=== PATIENT | male | born 1955 | race Caucasian/White ===

== ENCOUNTER 2019-08-04 07:46 | Outpatient (CLI) | payer OTHER ==
[~2019-08-04] VITALS: Ht 177.8 cm; Wt 94.5 kg
--- NOTE | ~2019-08-04 | HEMODYNAMI ---
PATIENT:DU GARCIA MEDICAL RECORD: [id number] : 59 [id number] ADMISSION DATE: 08/04/19 Generatedon:08/05/201910:05 Patient name: DU GARCIA Patient #: [id number] SSN: : Date of study: 08/05/2019 Page: Of Hemodynamic Procedure Report Patient Data Patient Demographics First Name: DU Gender: Male Last Name: JOSE : 1955 Patient #: [id number] Age: 63 year(s) Race: Unknown Additional ID: [id number] Contact details [address]: [address] [place] [address] State: [place] City: [place] Zip code: [address] Past Medical History Allergies Allergen Reaction Date Comments Reported Other allergy 08/05/2019 PCN, EGGS, MORPHINE Admission Admission Data Admission Date: 08/04/2019 Admission Time: 7:46 Admit Source: Other Room #: D.2114 Lab Results Lab Result Date: 08/05/2019 Lab Result Time: 0:00 Biochemistry Name Units Result Min Max BUN mg/dl 15 --(--*-)-- 7 18 Creatinine mg/dl 1.5 --(----)-* 0.6 1.3 eGFR ml/min 51 *-(----)-- 90 120 NONAFRICAN CBC Name Units Result Min Max Hematocrit % 47.5 --(-*--)-- 42 54 Hemoglobin g/dl 16.3 --(--*-)-- 13.5 17.5 Procedure Procedure Types Cath Procedure Diagnostic Procedure [facility] w/Coronaries FFR/IVUS FFR Initial FFR Additional PCI Procedure Coronary Stent Coronary Stent Initial x2 Coronary Stent Additional Procedure Description Procedure Date Procedure Date: 08/05/2019 Procedure Start Time: 9:18 Procedure End Time: 10:03 Procedure Staff Name Function Drew Kidd MD Performing Physician Tristan Allison RT Monitor Miracle Mai RN Nurse Nahomy Kim RT Scrub Celso Rodriguez RN Medical Research Assistant Procedure Data Cath Procedure Fluoroscopy Diagnostic fluoroscopy Total fluoroscopy Time: time: 11.8 min 11.8 min Diagnostic fluoroscopy Total fluoroscopy dose: dose: 1582 mGy 1582 mGy Contrast Material Contrast Material Type Amount (ml) Isovue 370 161 Entry Location Entry Primary Successful Side Size Upsize Upsize Entry Closure Succes sful Closure Location (Fr) 1 (Fr) 2 (Fr) Remarks Device Remarks Femoral Left 5 Fr 6 Fr AMPLATZ Exoseal artery Short Diagnostic catheters Device Type Used For End Catheter Placement MULTIPACK 3DRC 5Fr Right Coronary catheter Angiography MULTIPACK JL 4.0 5Fr Left Coronary catheter Angiography MULTIPACK Pigtail 5 Fr LV Angiography catheter Procedure Complications No complications Procedure Medications Medication Administration Route Dosage Oxygen etCO2 Nasal cannula 2 l/min Lidocaine 2% added to field 20 Heparin Flush Bag added to field 2 bags (1000units/500ml NS) 0.9% NaCl I.V. 100 ml/hr Versed I.V. 2 mg Fentanyl I.V. 100 mcg Versed I.V. 2 mg Fentanyl I.V. 100 mcg Versed I.V. 2 mg Fentanyl I.V. 100 mcg Heparin Bolus I.V. 4000 units Plavix P.O. 75 mg Hemodynamics Rest HGB: 16.3 (g/dl) Heart Rate: 60 (bpm) Snapshots Pre Cath Intra NCS Post Cath Vital Signs Time Heart Resp SPO2 etCO2 NIBP (mmHg) Rhythm Pain Sedation Rate (ipm) (%) (mmHg) Status Level (bpm) 9:04:32 57 16 94 19.6 114/76(89) NSR 0 (11) 10(A) , No pain 9:08:46 54 15 92 14.3 107/69(80) NSR 0 (11) 10(A) , No pain 9:12:58 62 11 92 23.3 92/67(79) NSR 0 (11) 10(A) , No pain 9:17:03 56 10 93 23.3 91/68(80) NSR 0 (11) 10(A) , No pain 9:21:03 51 10 93 0.7 108/81(95) NSR 0 (11) 10(A) , No pain 9:25:07 52 11 93 0 116/81(91) NSR 0 (11) 10(A) , No pain 9:29:25 56 10 92 26.3 95/64(89) NSR 0 (11) 9(A) , No pain 9:34:46 91 9 93 30.9 91/59(66) NSR 0 (11) 9(A) , No pain 9:38:50 60 8 92 36.2 95/71(85) NSR 0 (11) 9(A) , No pain 9:44:14 60 8 92 38.4 75/51(56) NSR 0 (11) 9(A) , No pain 9:48:15 62 9 93 37.7 77/60(72) NSR 0 (11) 9(A) , No pain 9:52:17 65 10 92 39.2 89/64(82) NSR 0 (11) 10(A) , No pain 9:56:23 70 10 93 23.4 104/68(90) NSR 0 (11) 10(A) , No pain 10:01:22 67 12 90 0 122/90(103) NSR 0 (11) 10(A) , No pain Medications Time Medication Route Dose Verified Delivered Reason Notes E ffectiveness by by 9:09:49 Oxygen etCO2 2 Drew used for Nasal l/min Marti TREVIZO procedure cannula 9:10:00 Lidocaine 2% added 20ml Drew Drew for local to vial Marti Kidd MD anesthetic field 9:10:07 Heparin Flush added 2 Drew Drew used for Bag to bags Marti Kidd MD procedure (1000units/500ml field NS) 9:10:15 0.9% NaCl I.V. 100 Drew Buffie Per ml/hr Marti Mai RN physician 9:17:03 Fentanyl I.V. 100 Drew Buffie for sedation mcg Marti Mai RN 9:17:57 Versed I.V. 2 mg Drew Buffie for sedation Marti Mai RN 9:22:04 Versed I.V. 2 mg Drew Buffie for sedation Marti Mia RN 9:22:08 Fentanyl I.V. 100 Drew Buffie for sedation mcg Marti Mai RN 9:29:30 Versed I.V. 2 mg Drew Buffie for sedation Marti Mai RN 9:29:35 Fentanyl I.V. 100 Drew Buffie for sedation mcg Marti Mai RN 9:41:31 Heparin Bolus I.V. 4000 Drew Rausch Per units Marti Mai RN physician 10:00:55 Plavix P.O. 75 mg Drew Rausch for Marti Mai RN antiplatelet therapy Procedure Log Time Note 8:37:02 Admit Source: Other 8:38:04 Procedure Status Elective Heart Cath (OP). 8:38:22 Celso Rodriguez RN sent for patient. Start room use. 8:38:30 Time tracking: Regular hours (M-F 7:00 - 5:00) 8:38:35 Plan of Care:Hemodynamics will remain stable., Cardiac rhythm will remain stable., Comfort level will be maintained., Respiratory function will remain adequate., Patient/ family verbilizes understanding of procedure., Procedure tolerated without complication., Recovers from procedure without complications.. 8:48:47 Risk of blood transfusion: 0.9 8:48:53 Risk of RAJESH: n/a 8:49:50 3a) 45-59 Moderately reduced kidney function. 8:50:24 Maximum allowable contrast dose (3.7 X eGFR X 0.75)141.5 ml. 8:54:20 Patient received from Med II to CCL 1 Alert and oriented. Tansferred to table in Supine position. 8:54:21 Warm blankets applied, and willard hugger turned on for patient comfort. 8:54:22 Correct patient and procedure confirmed by team. 8:54:22 ECG and BP/O2 sat monitors applied to patient. 8:54:27 H&P Date Dictated: 08/05/2019 New H&P dictated by physician.. 8:55:10 Patient allergic to Other allergyPCN, EGGS, MORPHINE 8:55:15 Is the patient allergic to Iodine/contrast media? No. 8:55:53 Is patient on blood thinner?Yes 8:56:14 COUMADIN HELD SINCE 08.03 8:56:28 PT BELIEVES LAST DOSE OF PLAVIX ON 08.03 8:56:30 Patient diabetic? No. 8:56:34 Previous problem with sedation/anesthesia? No ? 8:56:35 Snore? Yes 8:56:36 Sleep apnea? Yes 8:56:37 Deviated septum? No 8:56:39 Opens mouth fully? Yes 8:56:40 Sticks out tongue? Yes 8:56:43 Airway obstruction? Yes COPD 8:56:48 Dentures? No ? 8:56:50 Pre procedure: right dorsailis pedis pulse 1+ Palpable, but thready & weak; easily obliterated 8:56:58 Patient pain scale 0/10 ?. 8:57:02 IV patent on arrival in right antecubital with 0.9% NaCl at O. 8:58:00 Lab Result : BUN 15 mg/dl 8:58:00 Lab Result : eGFR NONAFRICAN 51 ml/min 8:58:00 Lab Result : Creatinine 1.5 mg/dl 8:58:00 Lab Result : Hemoglobin 16.3 g/dl 8:58:00 Lab Result : Hematocrit 47.5 % 8:58:30 Lab results completed and on chart. 8:58:46 Stress Test: no; N/A NSTEMI 8:58:49 Risk of Mortality: 0.8 8:58:54 Right groin area was prepped with chlora-prep and draped in sterile fashion 8:58:55 Alarms reviewed by R. N. 8:58:55 Sharps counted by scrub and verified by R.N. 8:59:00 Use device set Femoral Dx 8:59:01 ACIST Syringe (62158) opened to sterile field. 8:59:02 Bag Decanter (2002S) opened to sterile field. 8:59:03 ACIST Hand Control (40272) opened to sterile field. 8:59:03 ACIST Manifold (60534) opened to sterile field. 8:59:04 Tegaderm 4 x 4 (1626W) opened to sterile field. 8:59:06 Medline Cath Pack ([id number]) opened to sterile field. 8:59:07 DIAGNOSTIC Multipack 5Fr catheter set (BC6303) opened to sterile field. 8:59:08 SHEATH 5FR [place] (JZF684) opened to sterile field. 8:59:08 EMERALD Guide Wire (502-463) opened to sterile field. 9:03:26 Baseline sample Acquired. 9:03:26 Vital chart was started 9:03:29 Rhythm: sinus rhythm 9:03:31 Full Disclosure recording started 9:03:33 Pre-procedure instructions explained to patient. 9:03:42 Family in patients room. 9:03:45 Patient NPO since Midnight. 9:04:03 ACC The patient was administered the following blood thiners within the last 24 hours: ACCPlavix 9:04:23 Physician paged 9:09:49 Oxygen 2 l/min etCO2 Nasal cannula was administered by ; used for procedure; Verbal order read back and verified. 9:10:00 Lidocaine 2% 20ml vial added to field was administered by Drew Kidd MD; for local anesthetic; Verbal order read back and verified. 9:10:07 Heparin Flush Bag (1000units/500ml NS) 2 bags added to field was administered by Drew Kidd MD; used for procedure; Verbal order read back and verified. 9:10:15 0.9% NaCl 100 ml/hr I.V. was administered by Miracle Mai RN; Per physician; Verbal order read back and verified. 9:16:52 Physician arrived 9:16:52 --------ALL STOP TIME OUT------ 9:16:53 Final Timeout: patient, procedure, and site verified with staff and physician. All members of the team are in agreement. 9:16:56 Right groin site verified by team. 9:17:02 Fire Safety Assessment: A--An alcohol-based skin anteseptic being used preoperatively., C--Open oxygen or nitrous oxide is being used., D--An ESU, laser, or fiber-optic light is being used. 9:17:03 Fentanyl 100 mcg I.V. was administered by Miracle Mai RN; for sedation; Verbal order read back and verified. 9:17:06 Physical assessment completed. ASA score P 3 - A patient with severe systemic disease as per Drew Kidd MD. 9:17:11 Sedation plan: IV Moderate Sedation Medication:Versed, Fentanyl 9:17:57 Versed 2 mg I.V. was administered by Miracle Mai RN; for sedation; Verbal order read back and verified. 9:18:29 Procedure started. 9:18:47 Local anesthetic to right femoral artery with Lidocaine 2% by Drew Kidd MD.INITIAL ACCESS ONLY 9:19:54 Zero performed for pressure channel P1 9:22:04 Versed 2 mg I.V. was administered by Buffie Mai RN; for sedation; Verbal order read back and verified. 9:22:08 Fentanyl 100 mcg I.V. was administered by Miracle Mai RN; for sedation; Verbal order read back and verified. 9:24:29 UNABLE TO GAIN ACC. INTO RFA 9:24:35 Local anesthetic to left femerol artery with Lidocaine 2% by Drew Kidd MD.ADDITIONAL ACCESS 9:24:44 A 5 Fr sheath was inserted into the Left Femoral arteryAMPLATZ 9:25:34 AMPLATZ Super Stiff 75cm wire ([id number]) opened to sterile field. 9:27:52 GLIDE WIRE Super Stiff Angled 260cm ([id number]) opened to sterile field. 9:28:52 A MULTIPACK 3DRC 5Fr catheter was advanced over the wire and used for Right Coronary Angiography. 9:28:56 RCA angiography performed. 9:29:30 Versed 2 mg I.V. was administered by Miracle Mai RN; for sedation; Verbal order read back and verified. 9:29:35 Fentanyl 100 mcg I.V. was administered by Miracle Mai RN; for sedation; Verbal order read back and verified. 9:29:43 Catheter exchanged over wire. 9:29:48 A MULTIPACK JL 4.0 5Fr catheter was advanced over the wire and used for Left Coronary Angiography. 9:31:02 LCA angiography performed. 9:32:06 Catheter exchanged over wire. 9:32:45 A MULTIPACK Pigtail 5 Fr catheter was advanced over the wire and used for LV Angiography. 9:33:32 INFLATOR Merit BasixCompak (HG4315) opened to sterile field. 9:34:27 SHEATH 6FR [place] (IWI247) opened to sterile field. 9:34:29 GUIDE 6FR XBLAD 3.5 catheter ([id number]) opened to sterile field. 9:34:36 LV gram done using GODDARD 9:34:41 EF : 35 % 9:34:43 Catheter exchanged over wire. 9:34:50 Sheath upsized to a 6 Fr Short. 9:35:06 6 Fr XBLAD 3.5 guide catheter was inserted over the wire 9:37:20 Guide Catheter removed. unable to cannulate vessel. 9:37:32 GUIDE 6FR XBLAD 4.0 catheter ([id number]) opened to sterile field. 9:37:51 6 Fr XBLAD 4 guide catheter was inserted over the wire 9:37:56 FFR/IFR wire advanced. 9:37:57 Wire advanced across lesion. 9:40:43 pLAD lesion measured at 0.82 with IFR 9:41:31 Heparin Bolus 4000 units I.V. was administered by Miracle Mai RN; Per physician; Verbal order read back and verified. 9:44:13 Place stent Inflation Number: 1 A CHACE RX 2.25 x 22 stent ([id number]) was prepped and advanced across the Mid LAD 90. The stent was deployed at 13 JEREMY for 0:12 (min:sec) . 9:44:42 Stent catheter was removed intact over wire. 9:44:49 Wire removed. 9:45:57 Wire redirected to DIAG. 9:46:39 Place stent Inflation Number: 1 A CHACE RX 2.5 x 08 stent ([id number]) was prepped and advanced across the 1st Diag 90. The stent was deployed at 19 JEREMY for 0:10 (min:sec) . 9:46:55 Stent catheter was removed intact over wire. 9:46:57 Wire removed. 9:46:59 Guide catheter removed. 9:47:55 [place] Verrata Plus pressure wire ([id number]) opened to sterile field. 9:47:56 GUIDE 6FR AR 2.0 catheter ([id number]) opened to sterile field. 9:48:08 6 Fr AR 2 guide catheter was inserted over the wire 9:48:15 FFR/IFR wire advanced. 9:49:46 mRCA lesion measured at 0.88 with IFR 9:52:19 CHOICE PT Extra Support 182cm wire ([id number]) opened to sterile field. 9:53:00 CPTES wire advanced. 9:53:33 ACC Pre-intervention CESAR Flow is 3. 9:53:41 ACC Post-intervention CESAR Flow is 3. 9:54:22 Place stent Inflation Number: 1 A CHACE RX 3.5 x 15 stent ([id number]) was prepped and advanced across the Mid RCA 90. The stent was deployed at 19 JEREMY for 0:20 (min:sec) . 9:54:27 Stent catheter was removed intact over wire. 9:54:30 Wire removed. 9:54:31 Guide catheter removed. 9:54:51 Contrast amount:Isovue 370 161ml. 9:54:58 Sheath removed intact; hemostasis achieved with Exoseal to the Left Femoral artery. 9:55:51 Procedure ended.(Physican Out) 9:56:45 Fluoroscopy time 11.80 minutes. 9:56:53 Fluoroscopy dose: 1582 mGy 9:56:53 Flurop Dose total: 1582 9:57:02 Dose Area Product 42138 mGy/cm. 9:57:08 Maximum allowable dose exceeded? Yes. 9:57:16 Sharps counted by scrub and verified by R.N. 9:57:21 Insertion/operative site no bleeding no hematoma. 9:57:25 Post-op/insertion site Left Femoral artery dressed using a 4 x 4 and Tegaderm. 9:57:30 Post left femerol artery:stable 9:57:39 Post-op/insertion site Right Femoral artery dressed using a Bandaid. 9:57:48 Post right femoral artery:stable 9:58:00 EXOSEAL 6Fr (EX600) opened to sterile field. 9:58:33 Post Procedure Pulses reassessed and unchanged 9:58:38 Post procedure: right dorsailis pedis pulse 2+ Normal; easily identifiable; not easily obliterated. 9:58:43 Post-procedure physical assessment completed. ASA score P 2 - A patient with mild systemic disease as per Drew Kidd MD. 9:58:53 Post procedure rhythm: sinus rhythm 9:58:55 Post procedure instruction explained to patient.Patient verbalizes understanding. 10:00:12 Procedure type changed to Cath procedure, Diagnostic procedure, [facility], [facility] w/Coronaries, FFR/IVUS, FFR Initial, FFR Additional, PCI procedure, Coronary Stent, Coronary Stent Initial x2, Coronary Stent Additional 10:00:51 Procedure and supply charges have been captured, reviewed, submitted and are correct. 10:00:55 Plavix 75 mg P.O. was administered by Miracle Mai RN; for antiplatelet therapy; Verbal order read back and verified. 10:01:08 Procedure Complication : No complications 10:01:27 ACT drawn and resulted at 334 seconds. (normal therapeutic range 180-240 seconds). 10:01:45 >400 10:01:52 Vital chart was stopped 10:02:05 [facility] Findings: MVD- PCI performed (see procedure note) 10:02:14 Operative report dictated upon procedure completion. 10:02:25 See physician's report for complete and final results. 10:02:33 Report given to PCU. 10:03:01 Patient transfered to PCU with Bed. 10:03:03 Procedure ended. 10:03:03 Full Disclosure recording stopped 10:03:15 ACC-PCI Only Patient was given prescriptions, or instructed by Drew Kidd MD to start/continue the following medications upon discharge: Plavix 10:03:19 End room use (Document Last) 10:03:53 End room use (Document Last) Intervention Summary Intervention Notes Time ActionType Lesion and Equipment Used Action# Pressure Duration Attributes 9:44:13 Place stent Mid LAD CHACE RX 2.25 x 1 13 00:12 22 stent ([id number]) 9:46:39 Place stent 1st Diag CHACE RX 2.5 x 1 19 00:10 08 stent ([id number]) 9:54:22 Place stent Mid RCA CHACE RX 3.5 x 1 19 00:20 15 stent ([id number]) Device Usage Item Name Manufacture Quantity Catalog Number Hospital Part Current Minimal Lot# / Charge Number Stock Stock Serial# Code ACIST Syringe Acist 1 50804 344036 514275 234028 20 (03230) Medical Systems Inc Bag Decanter Microtek 1 2002S 286617 43414 525082 5 (2001S) Medical Inc. ACIST Hand Acist 1 94542 819782 547915 709794 5 Control Medical (82055) Systems Inc ACIST Manifold Acist 1 09157 634277 304996 087421 5 (51159) Medical Systems Inc Tegaderm 4 x 4 3M 1 1626W 319972 617524 008238 5 (1626W) Medline Cath Medline 1 [id number] 178529 26467 739899 5 Pack ([id number]) DIAGNOSTIC Cardinal 1 RJ3023 971034 90991 502525 30 Multipack 5Fr Health catheter set (CS5674) SHEATH 5FR Terumo 1 TCI994 830903 658475 822438 5 [place] (WWT321) EMERALD Guide Cardinal 1 502-455 313056 468061 950142 5 Wire (502-455) Health AMPLATZ Super [place] 1 [id number] 738682 411525 622712 5 [id number] Stiff 75cm Scientific wire ([id number]) GLIDE WIRE Terumo 1 LA0620 940109 921377 366451 5 Super Stiff Angled 260cm (UG1769) MULTIPACK 3DRC Cardinal 1 059671 5 5Fr catheter Health MULTIPACK JL Cardinal 1 933926 5 4.0 5Fr Health catheter MULTIPACK Cardinal 1 591155 5 Pigtail 5 Fr Health catheter INFLATOR Merit Merit 1 KJ6875 752326 437970 303349 15 BasixGaia Power Technologies Medical (PG4813) SHEATH 6FR Terumo 1 KFR368 451270 805742 743616 40 [place] (VAQ178) GUIDE 6FR Cardinal 1 72276643 556596 631865 446375 10 XBLAD 3.5 Health catheter (17486624) GUIDE 6FR Cardinal 1 01498955 856324 684551 487791 3 XBLAD 4.0 Health catheter (50733564) CHACE RX 2.25 x Medtronic 1 [id number] 566920 8545012 470408 5 [id number] 22 stent ([id number]) CHACE RX 2.5 x Medtronic 1 [id number] 193374 4073497 941813 5 [id number] 08 stent ([id number]) [place] 1 21774E 218900 [id number] 984193 5 [id number] Verrata Plus 412984 pressure wire (69188K) GUIDE 6FR AR Medtronic 1 [id number] 880857 89276 895615 1 2.0 catheter (DJ6ZV39) CHOICE PT [place] 1 [id number] 931014 210172 176174 5 Extra Support Scientific 182cm wire ([id number]) CHACE RX 3.5 x Medtronic 1 [id number] 752421 5610453 630890 5 [id number] 15 stent ([id number]) EXOSEAL 6Fr Cardinal 1 EX600 828670 801162 519907 10 (EX600) Health Signature Audit [place] Stage Time Signature Unsigned Intra-Procedure 08/05/2019 Tristan CHASE(R) 10:03:53 AM Intra-Procedure 08/05/2019 Miracle Mai RN 10:04:21 AM Intra-Procedure 08/05/2019 Drew Kidd 10:05:05 AM [place] [id number] [place] [address]
[2019-08-04 08:09] LABS: BASOPHILS 0.2 % (0-2); EOSINOPHILS 1.3 % (0-7); HEMATOCRIT 47.5 % (42.0-54.0); HEMOGLOBIN 16.3 g/dL (13.5-17.5); IMMATURE GRANULOCYTES 0.4 % (0-5); LYMPHOCYTES 20.1 % (15-50); MCH 31.3 pg (26.0-34.0); MCHC 34.3 g/dL (31.0-37.0); MCV 91.3 fL (80.0-100.0); MEAN PLATELET VOLUME 10.9 fL (7.4-10.4); MONOCYTES 8.8 % (2-11); NEUTROPHILS 69.2 % (40-80); RDW 18.2 % (11.5-14.5); WBC 16.7 10x3/uL (4.8-10.8)
[2019-08-04 08:17] LABS: PLATELET COUNT 204 10x3/uL (130-400)
[2019-08-04 08:21] LABS: CALC OSMOLALITY 281 mosm/kg (275-300); CALCIUM 9.2 mg/dL (8.5-10.1); CARBON DIOXIDE 25.9 mmol/L (21.0-32.0); CHLORIDE - SERUM 102 mmol/L (98-107); CREATININE - SERUM 1.5 mg/dL (0.6-1.3); GLUCOSE 144 mg/dL (74-106); POTASSIUM - SERUM 3.6 mmol/L (3.5-5.1); SODIUM 139 mmol/L (136-145); UREA NITROGEN 15 mg/dL (7-18); eGFR NON AFRICAN AMERICAN 51 mL/min (90-120)
[2019-08-04] MEDS ORDERED: ALBUTEROL SULF8.5 GM INH (08:33)
[2019-08-04] MEDS ORDERED: LIPITOR40 MG PO (08:34)
[2019-08-04] MEDS ORDERED: COREG6.25 MG PO (08:34)
[2019-08-04] MEDS ORDERED: PLAVIX75 MG PO (08:35)
[2019-08-04] MEDS ORDERED: STOOL SOFTENER250 MG PO (08:35)
[2019-08-04] MEDS ORDERED: OMEPRAZOLE20 M1 PO (08:36)
[2019-08-04] MEDS ORDERED: LISINOPRIL5 MG PO (08:36)
[2019-08-04] MEDS ORDERED: ISOSORBIDE MONO10 MG PO (08:36)
[2019-08-04] MEDS ORDERED: PERCOCET 10-321 EAC1 PO (08:37)
[2019-08-04] MEDS ORDERED: MIRALAX17 GM PO (08:37)
[2019-08-04 08:38] LABS: ALBUMIN 3.4 g/dL (3.4-5.0); ALKALINE PHOSPHATASE 156 U/L (46-116); ALT (SGPT) 22 U/L (10-68); APTT 28.7 SECONDS (22.8-39.4); BILIRUBIN - TOTAL 1.07 mg/dL (0.2-1.3); CKMB 2.6 U/L (0.0-3.6); CREATINE KINASE 61 UL (21-232); INR 1.18 (0.85-1.17); MAGNESIUM - SERUM 1.8 mg/dL (1.8-2.4); PROTEIN - SERUM 7.7 g/dL (6.4-8.2); PROTIME 14.5 SECONDS (11.6-15.0)
[2019-08-04] MEDS ORDERED: COUMADIN5 MG PO (08:38)
[2019-08-04] MEDS ORDERED: REQUIP3 MG PO (08:38)
[2019-08-04] MEDS ORDERED: TRAZODONE HCL150 MG PO (08:40)
[2019-08-04] MEDS ORDERED: NEURONTIN600 MG PO (08:40)
[2019-08-04] MEDS ORDERED: FLOMAX0.4 MG PO (08:40)
[2019-08-04 11:49] LABS: CKMB 23.2 U/L (0.0-3.6); CREATINE KINASE 166 UL (21-232)
[2019-08-04 11:56] LABS: TROPONIN-I 2.018 ng/mL (0.000-0.060)
[2019-08-04 13:32] LABS: INR 1.16 (0.85-1.17); PROTIME 14.2 SECONDS (11.6-15.0)
[2019-08-04 15:01] VITALS: BP 140/70; Ht 177.8 cm; Wt 94.5 kg
[2019-08-04 15:26] VITALS: BP 140/70
--- NOTE | 2019-08-04 15:36 | NUR ---
22 BEAT RUN OF V-TACH. HE OFFERS NO C/O. DR KERR IS HERE AND AWARE
--- NOTE | 2019-08-04 15:36 | NUR ---
HE HAD 22 BEAT OF V-TACH AT THIS TIME, RESPONDS AND DENIES ANY C/O.
--- NOTE | 2019-08-04 16:11 | NUR ---
HE HAD 58 BEAT OF V-TACH WITH NO SYMPTOMS AROUSES EASILY AND DENIES ANY CURRENT C/P OR PRESSURE, DR KERR IS HERE AND AWARE
--- NOTE | 2019-08-04 16:39 | NUR ---
BETAPACE GIVEN AT THIS TIME PER NEW ORDER
--- NOTE | 2019-08-04 16:43 | NUR ---
10 BEAT RUN OF V-TACH DR KERR IS HERE AND AWARE. HE OFFERS NO C/O RESTING WITH EASE AND AROUSES TO VERBAL STIMULI
--- NOTE | 2019-08-04 19:47 | NUR ---
RECEIVED BEDSIDE REPORT. PATIENT IS ALERT AND ORIENTED, SITTING UP ON SIDE OF BED. RESPIRATIONS ARE EVEN AND UNLABORED. NO S/S OF DISTRESS. NO C/O PAIN. CALL LIGHT WITHIN REACH. NEEDS MET. WILL CPOC.
[2019-08-04 20:00] VITALS: BP 112/68
[2019-08-05] VITALS: BP 128/61
[2019-08-05 04:00] VITALS: BP 106/54
[2019-08-05] MEDS ORDERED: ISOSORBIDE MONO30 M1 PO (08:02)
[2019-08-05] MEDS ORDERED: REMERON15 MG PO (08:04)
--- NOTE | 2019-08-05 08:50 | NUR ---
HAND ALMOND BLANCHER CALLED TO PRE-OP PT. PRE-OP MEDICATIONS GIVEN. PT IS SITTING UP IN BED READY TO GO. CATH TILE SHADER AT BEDSIDE NOW. PT DENIES ANY QUESTIONS OR CONCERNS AND IS LEAVING NOW. WILL CTM.
--- NOTE | 2019-08-05 10:03 | HP ---
PATIENT: DU MERRILL MEDICAL RECORD: [id number] ACCOUNT: [id number] LOCATION:[facility] D2114 : 59 ADMISSION DATE: 08/04/19 PCP: WALE, DOCTOR HISTORY AND PHYSICAL EXAMINATION DIAGNOSES: 1. Non-Q-wave myocardial infarction. 2. Coronary artery disease. 3. Previous percutaneous transluminal coronary angioplasty stent. 4. Smoking history. 5. Chronic obstructive pulmonary disease. 6. Coumadin anticoagulation. 7. Hyperlipidemia. 8. Hypertension. 9. Gastroesophageal reflux disease. HISTORY OF PRESENT ILLNESS: Mr. Merrill presents with increasing episodes of chest pain since 4:30 this morning. His troponin has elevated. He continues to have episodes of chest pain in an unstable fashion. He has a past history of coronary artery disease, PTCA stent of the [place]. Last time he was at the [place], he was told that there was a little left to do due to his small vessel disease. He does continue to have the pain at 5/10. At this time, his heart rate is in the 60s, systolic blood pressure is 100. He is on Coumadin. INR is pending. PHYSICAL EXAMINATION: CONSTITUTIONAL/GENERAL APPEARANCE: Well nourished, well developed, appears stated age. EYES: Lids and conjunctivae noninjected. No discharge. No pallor. ENT: Lips within normal limit. No cyanosis. No pallor. NECK: Carotid arteries, bilateral normal upstroke. No bruits. No thrills. No jugular venous pressure or distention. CERVICAL LYMPH NODES: Nontender. Nonenlarged. THYROID: Not enlarged. No nodules. CARDIOVASCULAR: Precordial exam, nondisplaced. No heaves or pericardial thrills. Rate and rhythm, regular. Heart sounds, normal S1, normal S2. No S3, no gallop, no rub. Systolic murmur, not heard. Diastolic murmur, not heard. RESPIRATORY: Respiratory effort, unlabored. Normal curvature. No thoracic deformity. No chest wall tenderness. Percussion, resonant. Auscultation, clear. No wheezes, no rales, no rhonchi. ABDOMEN: Soft, nondistended, nontender. No abdominal pain, no vomiting and normal appetite. MUSCULOSKELETAL: No joint tenderness, normal gait, normal tone. SKIN: Warm and dry. OVERALL IMPRESSION: Non-Q-wave myocardial infarction with continued chest pain. At this time, we will check an INR. He needs cardiac catheterization. His EKG has nonspecific ST-T abnormalities, but no acute findings. We will proceed with coronary angiography when safe from a bleeding standpoint from a low INR. TRANSINT:[id number] Voice Confirmation ID: [id number] DOCUMENT ID: [id number] HISTORY AND PHYSICAL [id number] DU MERRILL JEFFREY MD at 1003 CC: [id number] DICTATION DATE: 08/04/19 1248 DRAY TRUCK DRIVER: 08/04/19 1257 [facility] [address] [place] [id number]
--- NOTE | 2019-08-05 11:08 | NUR ---
PT REFUSED A FLU SHOT AND STATES HE IS ALLERGIC TO EGGS AND DOESNT WANT ONE.
--- NOTE | 2019-08-05 11:09 | NUR ---
LEFT GROIN DRSG REMAINS CDI NO S/S OF BLEEDING OR HEMATOMA NOTED. VSS. PT WILL REMAIN FLAT X4 HRS. PT DENIES ANY CURRENT NEEDS. WILL CTM.
--- NOTE | 2019-08-05 11:17 | OP ---
PATIENT NAME: DU GARCIA MEDICAL RECORD: [id number] :59 LOCATION:D.M2 D.2114 ADMISSION DATE: SURGEON: DEEJAY KERR MD DATE OF OPERATION: 08/05/2019 PROCEDURES: 1. PTCA stent RCA. 2. IFR RCA. 3. PTCA stent LAD diagonal. 4. PTCA stent LAD. 5. IFR LAD. 6. Left heart catheterization. 7. Selective coronary angiography. 8. Left ventriculogram. INDICATION: Non-Q-wave myocardial infarction. PROCEDURE IN DETAIL: After informed consent was obtained and after a detailed description of the risks, benefits as well as alternative therapies, the patient elected to proceed with angiogram and angioplasty. The left femoral area was prepped and draped in normal sterile fashion. Left femoral artery was cannulated via modified Seldinger technique with placement of 6-Albanian sheath. All catheters exchanged through this sheath. FINDINGS: Left ventriculogram was performed in standard 30-degree GODDARD view, reveals basilar akinesis, ejection fraction 35%. SELECTIVE CORONARY ANGIOGRAPHY: 1. Left main is with no significant angiographic disease. 2. Left anterior descending had 90% stenosis in the mid vessel. An IFR was abnormal. 3. The LAD diagonal had 90% stenosis proximally. 4. Left circumflex has diffuse disease of the total occlusion of a first obtuse marginal with filling of the distal marginal via left to left collaterals. This appears to be chronic and old. 5. The right coronary artery has multiple areas of stenosis. There appears to be an unstable ulcerated stenosis in the mid vessel. IFR was normal in the proximal vessel; however, abnormal after the lesion in the mid vessel. PTCA STENT OF THE LAD AND DIAGONAL: The LAD was addressed with a 2.25 x 18 mm Rg and the diagonal with a 2.5 x 8 mm Rg. Result was 0% residual stenosis. PTCA STENT OF THE RCA: The stent used was a 3.5 x 15 mm Rg. Result was 0% residual stenosis. OVERALL IMPRESSION: Successful percutaneous transluminal coronary angioplasty stent of the left anterior descending and right coronary artery, both going from 80% to 90% initial stenosis to 0% residual. TRANSINT:[id number] Voice Confirmation ID: [id number] DOCUMENT ID: [id number] OPERATIVE REPORT [id number] DU GARCIA JEFFREY MD at 1117 CC: [id number] DICTATION DATE: 08/05/19 1007 GUIDE CHANGER: 08/05/19 1015 [address] [place] [address]
--- NOTE | 2019-08-05 12:07 | NUR ---
PT REMAINS LYING FLAT IN BED. VSS AND STILL BEING MONITERED. RR NONLABORED ON RA. L.GROIN REMAINS CDI NO S/S OF BLEEDING OR HEMATOMA NOTED.
--- NOTE | 2019-08-05 13:16 | NUR ---
PT REMAINS LYING FLAT IN BED. L.GROIN DRSG CDI NO S/S OF BLEEDING OR HEMATOMA NOTED. VSS AND STILL BEING MONITERED. PT DENIES ANY CURRENT PAIN OR NEEDS AT THIS TIME. CL IN REACH. WILL CTM.
--- NOTE | 2019-08-05 13:50 | NUR ---
PTS 4 HR LAY IS NOW COMPLETE. ASSISTED PT UP IN BED TO EAT. CHADD DRSG REMAINS CDI NO S/S OF BLEEDING OR HEMATOMA NOTED. VSS. PT STATES HE IS FEELING GREAT OVERALL AND DENIES ANY PAIN OR NEEDS. CL IN REACH. WILL CTM.
--- NOTE | 2019-08-05 14:10 | NUR ---
DISCHARGE TEACHING PROVIDED AND PT VERBALIZED UNDERSTANDING. ALL BELONGINGS COLLECTED AND SENT WITH FAMILY. D/C PTS R.AC PIV WITH CATHETER TIP FULLY INTACT. D/C TELEMETRY AND RETURNED TO [facility] SE[facility]. PT IS READY TO GO AND WILL BE ESCORTED OUT VIA W/C AT THIS TIME.
--- NOTE | 2019-08-05 16:38 | MORECARE ---
CASE MANAGEMENT DISCHARGE SUMMARY PATIENT: DU GARCIA UNIT: [id number] ADM DATE: 08/04/19 AGE: 63 : 59 SEX: M ROOM/BED: AUTHOR: HILARY,DOC PHYSICIAN: REFERRING PHYSICIAN: DEEJAY KERR MD DATE OF SERVICE: 08/05/19 Discharge Plan Patient Name: DU GARCIA Facility: [facility]:[place] : 1955 Planned Disposition: Home Anticipated Discharge Date: 08/05/19 Discharge Date: 08/05/2019 Expected LOS: 1 Initial Reviewer: [email or web address] Initial Review Date: 08/05/2019 Generated: 08/05/19 5:37 pm Comments DCP- Discharge Planning Updated by [email or web address]: Esteban Hull on 08/05/19 3:[address] Patient Name: DU GARCIA Admission Status: ER Accout number: [id number] Admission Date: 08-04-2019 : 1955 Admission Diagnosis: Attending: MELECIO KERR Current LOS: 1 Anticipated DC Date: 08-05-2019 Planned Disposition: Home Primary Insurance: [employer] Discharge Planning Comments: CM RECEIVED REQUEST TO PROVIDE INFORMATION TO PT REGARDING MEDICAL POWER OF CTO. DU GARCIA provided verbal consent to discuss current and ongoing needs with/in the presence of: SPOUSE, KENDAL. CM MET WITH PT AND SPOUSE IN ROOM TO DISCUSS DISCHARGE PLANNING AND NEEDS. PT REPORTS LIVING AT HOME INDEPENDENTLY WITH HIS . PT HAS CPAP, WALKER AND WHEELCHAIR FROM [employer]. PT HAS NO OUTSIDE SERVICES ASSISTING IN THE HOME. CM DISCUSSED AVAILABILITY OF HOME HEALTH, REHAB SERVICES AND MEDICAL EQUIPMENT. PT DENIES DISCHARGE NEEDS, REPORTS HIS IS HERE TO PICK HIM UP FOR DISCHARGE HOME. CM PROVIDED AND DISCUSSED LIVING WILL AND POWER OF CTO. PT IS NOT INTERESTED IN THE LIVING WILL BUT WILL FILL OUT POWER OF CTO. PT'S SPOUSE COMPLETED THE FORM, CM CALLED [facility] FOR NOTARY WORK. PT AND SPOUSE DENIED FURTHER NEEDS. Access Analyst: Esteban Hull DCPIA - Discharge Planning Initial Assessment Updated by [id number]: Esteban Hull on 08/05/19 4:30 pm * Is the patient Alert and Oriented? Yes * How many steps to enter\exit or inside your home? RAMP * PCP [facility]. SADLER, [facility] * Preadmission Environment Home with Family * ADLs Independent * Equipment CPAP Walker Wheelchair * Other Equipment [facility] * List name and contact numbers for known caregivers / representatives who currently or will assist patient after discharge: KENDAL GARCIA, SPOUSE, * Verbal permission to speak to the caregivers and representatives has been obtained from the patient. Yes * Community resources currently utilized None * Please name any agencies selected above. NONE * Additional services required to return to the preadmission environment? No * Can the patient safely return to the preadmission environment? Yes * Has this patient been hospitalized within the prior 30 days at any hospital? No Patient Name: DU GARCIA Page [id number] at 1638 All edits/amendments must be made on the electronic document DICTATION DATE: 08/05/191636 CARDIOLOGY CLINICAL NURSE SPECIALIST: CASIMIRO 08/05/191636 RPT#: [id number] DC DATE:08/05/19 STATUS: DEP [facility] [address] [place] [address] END OF REPORT
--- NOTE | 2019-08-07 15:28 | DS ---
PATIENT:DU MERRILL :59 MEDICAL RECORD: [id number] DISCHARGE SUMMARY ADMISSION DATE: 08/04/19 DISCHARGE DATE: 08/05/19 DATE OF DISCHARGE: 08/05/2019 DIAGNOSES: 1. Non-Q-wave myocardial infarction. 2. PTCA and stent of RCA and LAD this admission. 3. Hypertension. 4. Hyperlipidemia. 5. Peripheral vascular disease. 6. Smoking. 7. Chronic obstructive pulmonary disease. HISTORY AND HOSPITAL COURSE: Mr. Merrill presents with a non-STEMI, continued to have chest pain, underwent cardiac catheterization revealing 90% stenosis of LAD and LAD diagonal, 80% stenosis of RCA. Underwent successful PTCA and stent of all 3 territories. Discharged home. No changes in his medications as he is already on Plavix and statin. He will follow up with [facility]. TRANSINT:[id number] Voice Confirmation ID: [id number] DOCUMENT ID: [id number] DEEJAY KERR MD at 1528 CC: [id number] DICTATION DATE: 08/05/19 1005 DIRECTOR OF MATERIALS: 08/05/19 2242 DEP CLI 08/05/19 [id number] [place] [address]
== END 2019-08-05 14:16 | disposition home or self-care (01) ==
LOC: D.ER 07:46 → D.M2 07:46 → D.ER 13:50 → D.M2 13:50 → EDSTATUS 13:54 → D.M2 08-05 14:16
PROVIDERS: Family Medicine; ATTEND Internal Medicine Interventional Cardiology
DX: I21.4 Non-ST elevation (NSTEMI) myocardial infarction (principal); Z86.73 Personal history of transient ischemic attack (TIA), and cerebral infarction without residual deficits; B19.10 Unspecified viral hepatitis B without hepatic coma; I10 Essential (primary) hypertension; Z72.0 Tobacco use; I25.2 Old myocardial infarction
CPT/HCPCS: 93458; 93571; 93572; C9600 ×2; C9601

== ENCOUNTER 2019-08-14 19:32 | Inpatient (IN) | payer MEDICARE ==
[~2019-08-14] VITALS: Ht 177.8 cm; Wt 94.5 kg
[~2019-08-14 19:32] MED LIST: ALBUTEROL SULF8.5 GM INH; COREG6.25 MG PO; COUMADIN5 MG PO; FLOMAX0.4 MG PO; ISOSORBIDE MONO10 MG PO; ISOSORBIDE MONO30 M1 PO; LIPITOR40 MG PO; LISINOPRIL5 MG PO; MIRALAX17 GM PO; NEURONTIN600 MG PO; OMEPRAZOLE20 M1 PO; PERCOCET 10-321 EAC1 PO; PLAVIX75 MG PO; REMERON15 MG PO; REQUIP3 MG PO; STOOL SOFTENER250 MG PO; TRAZODONE HCL150 MG PO
[2019-08-14 20:16] LABS: BASOPHILS 0.2 % (0-2); EOSINOPHILS 2.1 % (0-7); IMMATURE GRANULOCYTES 0.2 % (0-5); MCHC 34.1 g/dL (31.0-37.0); MCV 90.9 fL (80.0-100.0); MEAN PLATELET VOLUME 10.9 fL (7.4-10.4); MONOCYTES 5.6 % (2-11); NEUTROPHILS 75.9 % (40-80); PLATELET COUNT 215 10x3/uL (130-400); RBC 4.84 10x6/uL (4.20-6.10); RDW 17.4 % (11.5-14.5); WBC 12.9 10x3/uL (4.8-10.8)
[2019-08-14 20:25] LABS: INR 1.78 (0.85-1.17)
[2019-08-14 20:26] LABS: APTT 34.5 SECONDS (22.8-39.4)
[2019-08-14 20:29] LABS: CALCIUM 8.9 mg/dL (8.5-10.1); CARBON DIOXIDE 25.2 mmol/L (21.0-32.0); CREATININE - SERUM 1.4 mg/dL (0.6-1.3); POTASSIUM - SERUM 3.2 mmol/L (3.5-5.1)
[2019-08-14 20:49] LABS: ALBUMIN 2.9 g/dL (3.4-5.0); BILIRUBIN - TOTAL 0.62 mg/dL (0.2-1.3); PROTEIN - SERUM 7.3 g/dL (6.4-8.2)
[2019-08-14 20:50] LABS: TROPONIN-I 0.318 ng/mL (0.000-0.060)
[2019-08-14 23:25] VITALS: BP 115/88
--- NOTE | 2019-08-14 23:35 | NUR ---
FSBS 102
[2019-08-15 00:30] VITALS: BP 151/81; BMI 29.9
[2019-08-15 04:00] VITALS: BP 170/86
--- NOTE | 2019-08-15 04:33 | NUR ---
PATIENT APPEARS TO BE SLEEPING. RESPIRATIONS ARE EVEN AND UNLABORED. NO S/S OF DISTRESS. CALL LIGHT WITHIN REACH. WILL CPOC.
[2019-08-15 05:42] LABS: BASOPHILS 0.3 % (0-2); EOSINOPHILS 2.2 % (0-7); HEMATOCRIT 42.8 % (42.0-54.0); HEMOGLOBIN 14.5 g/dL (13.5-17.5); IMMATURE GRANULOCYTES 0.2 % (0-5); LYMPHOCYTES 31.7 % (15-50); MCH 30.6 pg (26.0-34.0); MCHC 33.9 g/dL (31.0-37.0); MCV 90.3 fL (80.0-100.0); MEAN PLATELET VOLUME 11.5 fL (7.4-10.4); MONOCYTES 9.4 % (2-11); NEUTROPHILS 56.2 % (40-80); PLATELET COUNT 189 10x3/uL (130-400); RBC 4.74 10x6/uL (4.20-6.10); RDW 17.7 % (11.5-14.5); WBC 11.6 10x3/uL (4.8-10.8)
[2019-08-15 06:32] LABS: ALBUMIN 2.7 g/dL (3.4-5.0); ANION GAP 13.1 mmol/L (8-16); BILIRUBIN - TOTAL 0.58 mg/dL (0.2-1.3); CALCIUM 8.6 mg/dL (8.5-10.1); CARBON DIOXIDE 26.1 mmol/L (21.0-32.0); CREATININE - SERUM 1.1 mg/dL (0.6-1.3); POTASSIUM - SERUM 3.2 mmol/L (3.5-5.1); PROTEIN - SERUM 6.9 g/dL (6.4-8.2)
[2019-08-15 06:35] LABS: TROPONIN-I 12.071 ng/mL (0.000-0.060)
--- NOTE | 2019-08-15 06:57 | NUR ---
RECEIVED CRICTIAL TROPONIN OF 12.017. PAGED GENERAL SALES MANAGER CHAPLAIN RESIDENT. AWAITING RETURN CALL. PASSED INFORMATION ON TO ON COMING NURSE.
--- NOTE | 2019-08-15 07:10 | NUR ---
PT RESTING COMFORTABLY IN BED, WATCHING TV. PT A/O X4, RESP EVEN AND NONLABORED ON RA. PT DENIES ANY CHEST PAIN AT THIS TIME. LT HAND IV SL. MONITOR SHOWING SB WITH RATE OF 57. PT DENIES ANY NEEDS AT THIS TIME. AT BEDSIDE, AD NOTED, WILL CONTINUE TO MONITOR.
--- NOTE | 2019-08-15 07:56 | NUR ---
NOTIFIED DR. CRUMP IN PERSON OF ELEVATED TROPONIN.
[2019-08-15 08:01] VITALS: BP 166/74
--- NOTE | 2019-08-15 09:32 | NUR ---
AM MEDS GIVEN ORDRED, PT RESTING COMFORTABLY IN BED, DENIES ANY NEEDS AT THIS TIME. CALL LIGHT IN REACH, NAD NOTED, WILL CONTINUE TO MONITOR.
[2019-08-15 11:56] VITALS: BP 167/73
[2019-08-15 12:36] VITALS: Ht 177.8 cm; Wt 94.5 kg
[2019-08-15 13:35] LABS: APPEARANCE CLEAR (CLEAR); BILIRUBIN NEGATIVE (NEGATIVE); COLOR YELLOW (YELLOW); GLUCOSE NEGATIVE (NEGATIVE); KETONE NEGATIVE (NEGATIVE); NITRITE NEGATIVE (NEGATIVE); PROTEIN NEGATIVE (NEGATIVE); SPECIFIC GRAVITY 1.005 (1.005-1.020); UROBILINOGEN NORMAL (NORMAL)
--- NOTE | 2019-08-15 15:07 | NUR ---
PT RESTING COMFORTABLY IN BED, DENIES ANY NEEDS AT THIS TIME, FAMILY AT BEDSIDE, CALL LIGHT IN REACH, NAD NOTED.
[2019-08-15 15:43] VITALS: BP 172/84
--- NOTE | 2019-08-15 19:15 | NUR ---
RECEIVED REPORT, WILL ASSUME CARE OF PT, ASK PT IF I COULD REPLACE TELEMTRY STICKERS, HE SAID I DONT KNOW WHY I HAVE TO EVEN WEAR THIS, EXPLAIN SO WE COULD MONITOR HEART, HE DID ALLOW ME TO REPLACE STICKERS, HIS ASK IF HE WAS GOING TO GET NIGHT MEDS, I TOLD THEM WHICH MEDS I HAD ORDERS FOR, HE SAID I DONT TAKE TRAZADONE, HE ASLO REFUSED BP TO BE TAKEN BECAUSE HE KEPT MOVING HIS ARM, SAID HE COULD KEEP IT STILL (WOOL FLEECE SORTER REPORTS) WILL TRY AGAIN, STATES HE CAN NOT GET COMFORTABLE IN BED, I ASK IF CHAIR WOULD BE BETTER, CALL LIGHT IN REACH, WILL CONTINUE PLAN OF CARE
[2019-08-15 20:30] VITALS: BP 151/89; BP 167/92
--- NOTE | 2019-08-16 02:05 | NUR ---
I have reviewed this patient and I concur with the Shift Assessment completed by the Licensed Practical Nurse today this shift.
--- NOTE | 2019-08-16 02:58 | NUR ---
PT PULLED IV, WANTS TO WAIT TO SEE IF SENDS HIM HOME TO DAY
[2019-08-16 05:00] LABS: BASOPHILS 0.2 % (0-2); EOSINOPHILS 1.4 % (0-7); HEMATOCRIT 42.7 % (42.0-54.0); HEMOGLOBIN 14.6 g/dL (13.5-17.5); IMMATURE GRANULOCYTES 0.3 % (0-5); LYMPHOCYTES 29.2 % (15-50); MCHC 34.2 g/dL (31.0-37.0); MCV 90.7 fL (80.0-100.0); MEAN PLATELET VOLUME 11.3 fL (7.4-10.4); MONOCYTES 7.9 % (2-11); PLATELET COUNT 203 10x3/uL (130-400); RBC 4.71 10x6/uL (4.20-6.10); RDW 17.3 % (11.5-14.5); WBC 10.3 10x3/uL (4.8-10.8)
[2019-08-16 05:19] LABS: ANION GAP 12.9 mmol/L (8-16); CALCIUM 8.7 mg/dL (8.5-10.1); CARBON DIOXIDE 23.7 mmol/L (21.0-32.0); CREATININE - SERUM 1.1 mg/dL (0.6-1.3); POTASSIUM - SERUM 3.6 mmol/L (3.5-5.1)
[2019-08-16 07:36] VITALS: BP 109/70
--- NOTE | 2019-08-16 08:42 | NUR ---
AM MEDS GIVEN AT THIS TIME. PT WANTING TO REFUSED TO TAKE LOVENOX INJECTION, EXPLAINED TO PT THAT THE LOVENOX WAS ORDERED TO REPLACE THE COUMADIN FOR NOW. PT VERBALIZED UNDERSTANDING, ALSO PROVIDED PT WITH CUP OF ICE. PT DENIES ANY OTHER NEEDS AT THIS TIME. CALL LIGHT IN REACH, FAMILY AT BEDSIDE, NAD NOTED, WILL CONTINUE TO MONITOR.
[2019-08-16] MEDS ORDERED: COREG6.25 MG PO (08:44)
--- NOTE | 2019-08-16 10:46 | NUR ---
PROVIDED VERBAL AND WRITTEN DISCHARGE TEACHING TO PT, WHO VERBALIZED UNDERSTANDING REGARDING TEACHING. HEART MONITOR REMOVED AND TAKEN TO BARGE PILOT. PT LEFT UNIT VIA WHEELCHAIR, WITH ALL BELONGINGS, ACCOMPANIED BY FAMILY, NAD NOTED.
== END 2019-08-16 10:47 | disposition home or self-care (01) | DRG 281 ==
LOC: D.ER 19:32 → D.M2 21:48
PROVIDERS: Family Medicine; ADMIT Internal Medicine Nephrology; ATTEND Internal Medicine Nephrology
DX: I21.4 Non-ST elevation (NSTEMI) myocardial infarction (principal); F17.213 Nicotine dependence, cigarettes, with withdrawal; T82.867A Thrombosis due to cardiac prosthetic devices, implants and grafts, initial encounter; E87.6 Hypokalemia; I25.10 Atherosclerotic heart disease of native coronary artery without angina pectoris; I10 Essential (primary) hypertension; E78.5 Hyperlipidemia, unspecified; J44.9 Chronic obstructive pulmonary disease, unspecified; K75.9 Inflammatory liver disease, unspecified; F41.8 Other specified anxiety disorders; I21.A9 Other myocardial infarction type; Z86.73 Personal history of transient ischemic attack (TIA), and cerebral infarction without residual deficits

== ENCOUNTER 2019-11-20 09:34 | Inpatient (IN) | payer MEDICARE ==
[~2019-11-20] VITALS: Ht 177.8 cm; Wt 95.0 kg
[2019-11-20 10:01] VITALS: BP 170/83
[2019-11-20 10:23] LABS: INR 2.15 (0.85-1.17); PROTIME 23.7 SECONDS (11.6-15.0)
[2019-11-20 10:24] LABS: APTT 39.4 SECONDS (22.8-39.4); CALC OSMOLALITY 280 mosm/kg (275-300); CALCIUM 8.7 mg/dL (8.5-10.1); CARBON DIOXIDE 24.3 mmol/L (21.0-32.0); CHLORIDE - SERUM 105 mmol/L (98-107); CREATININE - SERUM 1.4 mg/dL (0.6-1.3); GLUCOSE 147 mg/dL (74-106); POTASSIUM - SERUM 3.8 mmol/L (3.5-5.1); SODIUM 138 mmol/L (136-145); UREA NITROGEN 17 mg/dL (7-18); eGFR NON AFRICAN AMERICAN 54 mL/min (90-120)
[2019-11-20 10:29] LABS: BASOPHILS 0.3 % (0-2); HEMATOCRIT 43.5 % (42.0-54.0); HEMOGLOBIN 14.7 g/dL (13.5-17.5); IMMATURE GRANULOCYTES 0.2 % (0-5); LYMPHOCYTES 15.5 % (15-50); MCH 31.3 pg (26.0-34.0); MCHC 33.8 g/dL (31.0-37.0); MCV 92.6 fL (80.0-100.0); MEAN PLATELET VOLUME 11.7 fL (7.4-10.4); MONOCYTES 8.1 % (2-11); NEUTROPHILS 73.9 % (40-80); PLATELET COUNT 225 10x3/uL (130-400); RDW 17.4 % (11.5-14.5); WBC 13.1 10x3/uL (4.8-10.8)
[2019-11-20 10:50] LABS: ALBUMIN 3.2 g/dL (3.4-5.0); ALKALINE PHOSPHATASE 164 U/L (30-120); ALT (SGPT) 22 U/L (10-68); BILIRUBIN - TOTAL 0.53 mg/dL (0.2-1.3); CKMB 2.1 U/L (0.0-3.6); CREATINE KINASE 54 UL (21-232); MAGNESIUM - SERUM 2.1 mg/dL (1.8-2.4); PROTEIN - SERUM 7.5 g/dL (6.4-8.2)
[2019-11-20 10:59] LABS: TROPONIN-I 0.095 ng/mL (0.000-0.060)
--- NOTE | 2019-11-20 10:59 | NUR ---
CRITICAL LAB: TROPONIN 0.095 SOSA BERMUDEZ NOTIFIED
[2019-11-20 11:19] VITALS: BP 132/68
--- NOTE | 2019-11-20 12:06 | NUR ---
[facility] COORDINATOR CALLED. REPORTS PT CAN TX THERE, IF HE REFUSES TO TX HIS MEDICARE A WILL COVER HIM STAYING HERE AND HE WILL BE RESPONSIBLE FOR 20%. SOSA BERMUDEZ AND MYSELF AT TO EXPL TO PT AND FAMILY. PT CONTINUES TO REFUSE TO TX TO [place] AND NOW REFUSING TO STAY HERE. AIDAN EXPL NEED TO STAYU AND RATIONALE. FAMILY WILL DISCUSS WITH PT AND LET SOSA BERMUDEZ KNOW PTS DECISION.
[2019-11-20 12:30] VITALS: BP 122/73
[2019-11-20 13:22] LABS: CKMB 10.7 U/L (0.0-3.6); CREATINE KINASE 99 UL (21-232)
--- NOTE | 2019-11-20 14:41 | NUR ---
REPORT TO RACHEL HA
[2019-11-20 14:45] VITALS: BP 128/72
[2019-11-20 18:27] VITALS: BP 146/70
[2019-11-20 19:47] LABS: CKMB 25.7 U/L (0.0-3.6); CREATINE KINASE 171 UL (21-232)
[2019-11-20 19:58] LABS: TROPONIN-I 4.767 ng/mL (0.000-0.060)
[2019-11-20 20:44] VITALS: BP 150/91
[2019-11-21 01:16] VITALS: BP 119/71
[2019-11-21 01:30] LABS: CKMB 20.6 U/L (0.0-3.6); CREATINE KINASE 154 UL (21-232)
[2019-11-21 02:25] LABS: TROPONIN-I 4.421 ng/mL (0.000-0.060)
[2019-11-21 05:45] VITALS: BP 115/74
[2019-11-21 07:29] LABS: INR 1.33 (0.85-1.17); PROTIME 16.4 SECONDS (11.6-15.0)
[2019-11-21 08:03] LABS: BASOPHILS 0.3 % (0-2); EOSINOPHILS 2.3 % (0-7); HEMOGLOBIN 13.3 g/dL (13.5-17.5); IMMATURE GRANULOCYTES 0.2 % (0-5); MCH 30.7 pg (26.0-34.0); MCHC 33.3 g/dL (31.0-37.0); MCV 92.4 fL (80.0-100.0); MEAN PLATELET VOLUME 11.3 fL (7.4-10.4); MONOCYTES 8.7 % (2-11); NEUTROPHILS 53.5 % (40-80); PLATELET COUNT 200 10x3/uL (130-400); RBC 4.33 10x6/uL (4.20-6.10); RDW 17.3 % (11.5-14.5); WBC 10.4 10x3/uL (4.8-10.8)
[2019-11-21 08:12] LABS: ANION GAP 10.6 mmol/L (8-16); CALCIUM 8.3 mg/dL (8.5-10.1); CREATININE - SERUM 1.2 mg/dL (0.6-1.3); MAGNESIUM - SERUM 1.9 mg/dL (1.8-2.4); POTASSIUM - SERUM 3.6 mmol/L (3.5-5.1)
[2019-11-21 09:04] VITALS: BP 146/81
--- NOTE | 2019-11-21 10:24 | MORECARE ---
CASE MANAGEMENT DISCHARGE SUMMARY PATIENT: DU GARCIA UNIT: [id number] ADM DATE: 11/20/19 AGE: 64 : 59 SEX: M ROOM/BED: D.2115 AUTHOR: ADALBERTO RICHARD PHYSICIAN: REFERRING PHYSICIAN: BARRON SO MD DATE OF SERVICE: 11/21/19 Discharge Plan Patient Name: DU GARCIA [facility] [facility] 1955 Planned Disposition: Anticipated Discharge Date: Discharge Date: Expected LOS: Initial Reviewer: [email or web address] Initial Review Date: 11/21/2019 Generated: 11/21/19 11:24 am Patient Name: DU GARCIA Page 00776 at 1024 All edits/amendments must be made on the electronic document DICTATION DATE: 11/21/19 1024 SOFTWARE PROJECT LEAD: CASIMIRO 11/21/19 1024 RPT#: [id number] DC DATE: STATUS: ADM IN [facility] [address] [place] [address] END OF REPORT
--- NOTE | 2019-11-21 10:31 | MORECARE ---
CASE MANAGEMENT DISCHARGE SUMMARY PATIENT: DU GARCIA UNIT: [id number] ADM DATE: 11/20/19 AGE: 64 : 59 SEX: M ROOM/BED: D.4055 AUTHOR: ADALBERTO RICHARD PHYSICIAN: REFERRING PHYSICIAN: BARRON SO MD DATE OF SERVICE: 11/21/19 Discharge Plan Patient Name: DU GARCIA Facility: [facility]:[place] : 1955 Planned Disposition: Anticipated Discharge Date: Discharge Date: Expected LOS: Initial Reviewer: [email or web address] Initial Review Date: 11/21/2019 Generated: 11/21/19 11:30 am Comments DCP- Discharge Planning Updated by [email or web address]: Jade Abernathy on 11/21/19 9:[address] Patient Name: DU GARCIA Admission Status: ER Accout number: [id number] Admission Date: 11-20-2019 : 1955 Admission Diagnosis: Attending: BARRON SO Current LOS: 1 Anticipated DC Date: Planned Disposition: Primary Insurance: MEDICARE PART A ONLY Discharge Planning Comments: CM SPOKE WITH KENDAL ABOUT DC PLANNING/NEEDS. VERIFIED INFORMATION. DENIES NEED FOR HH, EQUIPMENT OR REHAB. PLANS TO DC TO HOME TODAY. STATES DOCTOR TOLD HER 2 HOURS AGO HER WOULD BE GETTING DISCHARGED. IS UPSET THAT THEY HAVE NOT BEEN DISCHARGED YET. CM IS FOLLOWING UP ON DC STATUS. Director Of Business Continuity: Jade Abernathy DCPIA - Discharge Planning Initial Assessment Updated by [id number]: Jade Abernathy on 11/21/19 10:24 am * Is the patient Alert and Oriented? Yes * PCP VIKTORIYA * [facility] * Preadmission Environment Home with Family * Other Equipment CPAP, WC, WALKER * Community resources currently utilized None * Additional services required to return to the preadmission environment? No * Can the patient safely return to the preadmission environment? Yes * Has this patient been hospitalized within the prior 30 days at any hospital? No Last DP export: 11/21/19 9:24 a Patient Name: DU GARCIA Page 20023 at 1031 All edits/amendments must be made on the electronic document DICTATION DATE: 11/21/19 103 CLEANER FURNITURE: CASIMIRO 11/21/19 103 RPT#: [id number] DC DATE: STATUS: ADM IN [facility] [address] [place] [address] END OF REPORT
--- NOTE | 2019-11-21 10:32 | NUR ---
IV AND TELEMETRY DCD. DC PLANS GIVEN. UNDERSTANDING VOICED. ESCORTED TO CAR BY W/C.
[2019-11-21 10:56] VITALS: Ht 177.8 cm; Wt 95.0 kg
--- NOTE | 2019-11-21 15:44 | MORECARE ---
CASE MANAGEMENT DISCHARGE SUMMARY PATIENT: DU GARCIA UNIT: [id number] ADM DATE: 11/20/19 AGE: 64 : 59 SEX: M ROOM/BED: D.6255 AUTHOR: ADALBERTO RICHARD PHYSICIAN: REFERRING PHYSICIAN: BARRON SO MD DATE OF SERVICE: 11/21/19 Discharge Plan Patient Name: DU GARCIA Facility: [facility]:[place] : 1955 Planned Disposition: Anticipated Discharge Date: Discharge Date: 11/21/2019 Expected LOS: Initial Reviewer: [email or web address] Initial Review Date: 11/21/2019 Generated: 11/21/19 4:43 pm Comments DCP- Discharge Planning Updated by [email or web address]: Jade Abernathy on 11/21/19 9:[address] Patient Name: DU GARCIA Admission Status: ER Accout number: [id number] Admission Date: 11-20-2019 : 1955 Admission Diagnosis: Attending: BARRON SO Current LOS: 1 Anticipated DC Date: Planned Disposition: Primary Insurance: MEDICARE PART A ONLY Discharge Planning Comments: CM SPOKE WITH KENDAL ABOUT DC PLANNING/NEEDS. VERIFIED INFORMATION. DENIES NEED FOR HH, EQUIPMENT OR REHAB. PLANS TO DC TO HOME TODAY. STATES DOCTOR TOLD HER 2 HOURS AGO HER WOULD BE GETTING DISCHARGED. IS UPSET THAT THEY HAVE NOT BEEN DISCHARGED YET. CM IS FOLLOWING UP ON DC STATUS. Real Estate Assessor: Jade Abernathy DCPIA - Discharge Planning Initial Assessment Updated by [email or web address]: Jade Abernathy on 11/21/19 10:24 am * Is the patient Alert and Oriented? Yes * PCP VIKTORIYA * [facility] * Preadmission Environment Home with Family * Other Equipment CPAP, WC, WALKER * Community resources currently utilized None * Additional services required to return to the preadmission environment? No * Can the patient safely return to the preadmission environment? Yes * Has this patient been hospitalized within the prior 30 days at any hospital? No Last DP export: 11/21/19 9:31 a Patient Name: DU GARCIA Page 38527 at 1544 All edits/amendments must be made on the electronic document DICTATION DATE: 11/21/19 1543 CUT OFF SAW OPERATOR PIPE BLANKS: CASIMIRO 11/21/19 1543 RPT#: [id number] DC DATE:11/21/19 STATUS: DIS IN [facility] [address] [place] [address] END OF REPORT
== END 2019-11-21 10:33 | disposition home or self-care (01) | DRG 281 ==
LOC: D.ER 09:34 → D.M2 14:02 → OBSVTIME 14:41 → D.M2 14:43
PROVIDERS: Family Medicine; Internal Medicine Cardiovascular Disease; ADMIT Internal Medicine Nephrology; ATTEND Internal Medicine Nephrology
DX: I21.4 Non-ST elevation (NSTEMI) myocardial infarction (principal); F17.213 Nicotine dependence, cigarettes, with withdrawal; I10 Essential (primary) hypertension; J44.9 Chronic obstructive pulmonary disease, unspecified; I25.10 Atherosclerotic heart disease of native coronary artery without angina pectoris; D64.9 Anemia, unspecified; Z95.818 Presence of other cardiac implants and grafts

== ENCOUNTER 2019-11-27 14:32 | Inpatient (IN) | payer MEDICARE ==
[~2019-11-27] VITALS: Ht 177.8 cm; Wt 95.0 kg
--- NOTE | ~2019-11-27 | HEMODYNAMI ---
PATIENT:DU GARCIA MEDICAL RECORD: [id number] : 59 LOCATION:[place] [address] ADMISSION DATE: 11/27/19 Generatedon:11/28/201910:12 Patient name: DU GARCIA Patient #: [id number] : 1955 Date of study: 11/28/2019 Page: Of Hemodynamic Procedure Report Patient Data Patient Demographics Procedure consent was obtained First Name: DU Gender: Male Last Name: JOSE : 1955 Patient #: [id number] Age: 64 year(s) Race: SSN: [id number] Additional ID: [id number] Contact details Address: [address] [place] [address] State: [place] City: [place] Zip code: [address] Past Medical History Allergies Allergen Reaction Date Comments Reported Other allergy 08/05/2019 PCN, EGGS, MORPHINE Admission Admission Data Admission Date: 11/27/2019 Admission Time: 16:22 Arrival Date: 11/27/2019 Arrival Time: 16:22 Admit Source: Emergency Insurance Payor: Medicare department [facility] #: [id number] Room #: [facility] Height (in.): 69.69 BSA: 2.12 (m2) Height (cm.): 177 BMI: 30.32 (kg/m2) Weight (lbs.): 209.44 Weight (kg.): 95 Lab Results Lab Result Date: 11/28/2019 Lab Result Time: 0:00 Biochemistry Name Units Result Min Max BUN mg/dl 14 --(--*-)-- 7 18 Creatinine mg/dl 1.1 --(--*-)-- 0.6 1.3 CBC Name Units Result Min Max Hemoglobin g/dl 13.1 -*(----)-- 13.5 17.5 Procedure Procedure Types Cath Procedure Diagnostic Procedure LHC LH w/Coronaries Sedation Charges Moderate Sedation up to 45 minutes PCI Procedure Coronary Stent Coronary Stent Initial Hemochron ACT Test Procedure Description Procedure Date Procedure Date: 11/28/2019 Procedure Start Time: 9:20 Procedure End Time: 10:03 Procedure Staff Name Function Shorty Workman MD Performing Physician Shanita Villalobos RT Monitor Radha Garrett RT Scrub Celso Rodriguez RN Nurse Procedure Data Cath Procedure Fluoroscopy Diagnostic fluoroscopy Total fluoroscopy Time: time: 15.1 min 15.1 min Diagnostic fluoroscopy Total fluoroscopy dose: dose: 1722 mGy 1722 mGy Contrast Material Contrast Material Type Amount (ml) Isovue 300 152 Entry Location Entry Primary Successful Side Size Upsize Upsize Entry Closure Succes sful Closure Location (Fr) 1 (Fr) 2 (Fr) Remarks Device Remarks Femoral Right 5 Fr 6 Fr 6 Fr Exoseal artery Long Short Estimated blood loss: 5 ml Diagnostic catheters Device Type Used For End Catheter Placement MULTIPACK 3DRC 5Fr Right Coronary catheter Angiography MULTIPACK JL 4.0 5Fr Left Coronary catheter Angiography MULTIPACK Pigtail 5 Fr LV Angiography catheter Procedure Complications No complications Procedure Medications Medication Administration Route Dosage 0.9% NaCl I.V. 100 ml/hr Oxygen etCO2 Nasal cannula 2 l/min Heparin Flush Bag added to field 2 bags (1000units/500ml NS) Lidocaine 2% added to field 20 Versed I.V. 2 mg Fentanyl I.V. 100 mcg Versed I.V. 1 mg Versed I.V. 1 mg Fentanyl I.V. 50 mcg Heparin Bolus I.V. 5000 units Integrilin (Bolus I.V. 8.5 ml 2mg/ml) Integrilin (Bolus wasted 1.5 ml 2mg/ml) Fentanyl I.V. 50 mcg Hemodynamics Rest BSA: 2.12 (m2) HGB: 13.1 (g/dl) O2 Consumption: Estimated: 245.85 (ml/min) O2 Co nsumption indexed: Estimated:115.97 (ml/min/m) Heart Rate: 67 (bpm) Pressure Samples Time Site Value (mmHg) Purpose Heart Use Rate(bpm) 9:41 LV 88/9,11 Snapshot 72 9:41 AO 95/60(74) Pullback 73 9:41 LV 78/-2,0 Pullback 73 Gradients Valve Time Site 1 Site 2 Mean SEP/DFP Peak To Heart Use (mmHg) (sec/min) Peak Rate (mmHg) (bpm) Aortic 9:41 LV AO 0 73 78/-2,0 95/60(74) Calculations Valve P-P Mean Valve Index Valve Source Name Gradient Area Flow (cm2) Aortic 0 0 Snapshots Pre Cath Intra NCS Post Cath Vital Signs Time Heart Resp SPO2 etCO2 NIBP (mmHg) Rhythm Pain Sedation Rate (ipm) (%) (mmHg) Status Level (bpm) 9:01:39 53 17 92 34.2 134/65(112) NSR 0 (11) 10(A) , No pain 9:05:56 68 13 92 27.3 117/69(95) NSR 0 (11) 10(A) , No pain 9:10:13 60 17 91 24.3 121/68(98) NSR 0 (11) 10(A) , No pain 9:14:31 61 11 89 26.6 113/61(86) NSR 0 (11) 10(A) , No pain 9:18:50 62 14 92 11.4 114/67(95) NSR 0 (11) 10(A) , No pain 9:23:10 66 12 90 4.5 100/62(74) NSR 0 (11) 10(A) , No pain 9:27:24 65 12 92 28.1 118/70(92) NSR 0 (11) 10(A) , No pain 9:31:44 72 12 92 27.3 100/57(84) NSR 0 (11) 10(A) , No pain 9:36:00 67 11 90 26.6 111/63(91) NSR 0 (11) 9(A) , No pain 9:40:18 71 10 91 32.7 107/55(86) NSR 0 (11) 9(A) , No pain 9:45:00 66 10 90 19 104/64(85) NSR 0 (11) 9(A) , No pain 9:49:17 71 12 89 21.3 101/64(77) NSR 0 (11) 8(A) , No pain 9:53:30 78 10 90 25.1 103/67(85) NSR 0 (11) 8(A) , No pain 9:57:42 73 12 92 26.6 104/69(87) NSR 0 (11) 8(A) , No pain 10:01:57 77 10 91 16.7 118/73(88) NSR 0 (11) 8(A) , No pain Medications Time Medication Route Dose Verified Delivered Reason Notes Effectiveness by by 9:12:00 0.9% NaCl I.V. 100 Celso Celso Per physician ml/hr Jennifer Rodriguez RN RN 9:12:11 Oxygen etCO2 2 Celso Celso for low 02 sats Nasal l/min Jennifer Rodriguez cannula RN RN 9:12:20 Heparin Flush added 2 Celso Celso used for Bag to bags Jennifer Rodriguez procedure (1000units/500ml field RN RN NS) 9:12:30 Lidocaine 2% added 20ml Celso Celso for local to vial Lorvalerio Rodriguez anesthetic field RN RN 9:12:42 Versed I.V. 2 mg Celso Celso for sedation Jennifer Rodriguez RN RN 9:12:50 Fentanyl I.V. 100 Celso Celso for sedation mcg Jennifer Rodriguez RN RN 9:17:13 Versed I.V. 1 mg Celso Celso for sedation Jennifer Rodriguez RN RN 9:25:39 Versed I.V. 1 mg Celso Celso for sedation Jennifer Rodriguez RN RN 9:34:18 Fentanyl I.V. 50 Celso Celso for sedation mcg Jennifer Rodriguez RN RN 9:44:41 Heparin Bolus I.V. 5000 Celso Celso for units Jennifer Rodriguez anticoagulation RN RN 9:45:37 Integrilin I.V. 8.5 Celso Celso for (Bolus 2mg/ml) ml Jennifer Rodriguez antiplatelet RN RN therapy 9:45:49 Integrilin wasted 1.5 Celso Celso to sharp's (Bolus 2mg/ml) ml Jennifer Rodriguez RN RN 9:48:53 Fentanyl I.V. 50 Celso Celso for sedation mcg Jennifer Rodriguez RN commodity loan clerk Log Time Note 8:26:55 Diagnostic Cath Status : Urgent 8:28:26 ACC Patient presents with Unstable Angina CCS Anginal Class 4--Inability to carry out any physical activity w/o angina. Angina may occur at rest. 8:28:28 Procedure Status Urgent Heart Cath (IP). 8:28:31 Shanita Villalobos RT(R) sent for patient. Start room use. 8:28:32 Time tracking: Regular hours (M-F 7:00 - 5:00) 8:28:38 Plan of Care:Hemodynamics will remain stable., Cardiac rhythm will remain stable., Comfort level will be maintained., Respiratory function will remain adequate., Patient/ family verbilizes understanding of procedure., Procedure tolerated without complication., Recovers from procedure without complications.. 8:30:07 Informed consent obtained and on chart 8:30:25 Admit Source: Emergency department 8:30:32 Arrival Date: 11/27/2019 4:22:00 PM 8:31:00 Insurance Payor : Medicare 8:31:04 Patient Height : 69.69 inches 8:31:08 Patient Weight : 209.44 lbs 8:32:18 Lab Result : Hemoglobin 13.1 g/dl 8:32:18 Lab Result : Creatinine 1.1 mg/dl 8:32:18 Lab Result : BUN 14 mg/dl 8:52:53 Patient received from Med II to CCL 1 Alert and oriented. Tansferred to table in Supine position. 8:52:54 Warm blankets applied, and willard hugger turned on for patient comfort. 8:52:55 Correct patient and procedure confirmed by team. 8:52:58 ECG and BP/O2 sat monitors applied to patient. 9:00:20 Vital chart was started 9:00:21 Baseline sample Acquired. 9:00:26 Rhythm: sinus rhythm 9:00:28 Full Disclosure recording started 9:00:32 H&P Date Dictated: 11/28/2019 New H&P dictated by physician.. 9:00:34 Pre-procedure instructions explained to patient. 9:00:34 Pre-op teaching completed and patient verbalized understanding. 9:00:36 Family in waiting room. 9:00:37 Patient NPO since Midnight. 9:00:40 Is the patient allergic to Iodine/contrast media? No. 9:00:41 Was the patient premedicated? Yes 9:00:42 Is patient on blood thinner?Yes 9:00:46 ACC The patient was administered the following blood thiners within the last 24 hours: ACCPlavix 9:00:50 Patient diabetic? Yes. 9:00:52 If diabetic: On Metformin? No 9:00:56 Previous problem with sedation/anesthesia? No ? 9:00:59 Snore? Yes 9:01:00 Sleep apnea? Yes 9:01:07 Deviated septum? No 9:01:07 Opens mouth fully? Yes 9:01:08 Sticks out tongue? Yes 9:01:12 Airway obstruction? No ? 9:01:17 Dentures? No ? 9:01:39 Pre procedure: right dorsailis pedis pulse 2+ Normal; easily identifiable; not easily obliterated 9:01:42 Pre procedure: left dorsailis pedis pulse 2+ Normal; easily identifiable; not easily obliterated 9:01:49 Patient pain scale 0/10 ?. 9:01:57 IV patent on arrival in left forearm with 0.9% NaCl at [facility]. 9:02:13 Lab results completed and on chart. 9:02:17 Risk of Mortality: 0.3 9:02:22 Risk of blood transfusion: 1.4 9:02:30 Risk of RAJESH: 5.5 9:02:34 Right groin area was prepped with chlora-prep and draped in sterile fashion 9:02:35 Alarms reviewed by R. N. 9:02:36 Sharps counted by scrub and verified by R.N. 9:09:03 Physician arrived 9:09:04 --------ALL STOP TIME OUT------ 9:09:04 Final Timeout: patient, procedure, and site verified with staff and physician. All members of the team are in agreement. 9:09:06 Right groin site verified by team. 9:09:11 Fire Safety Assessment: A--An alcohol-based skin anteseptic being used preoperatively., C--Open oxygen or nitrous oxide is being used., D--An ESU, laser, or fiber-optic light is being used. 9:09:14 Physical assessment completed. ASA score P 2 - A patient with mild systemic disease as per Shorty Workman MD. 9:09:34 3a) 45-59 Moderately reduced kidney function. 9:11:26 Maximum allowable contrast dose (3.7 X eGFR X 0.75)163 ml. 9:11:30 Sedation plan: IV Moderate Sedation Medication:Versed, Fentanyl 9:12:00 0.9% NaCl 100 ml/hr I.V. was administered by Celso Rodriguez RN; Per physician; Verbal order read back and verified. 9:12:11 Oxygen 2 l/min etCO2 Nasal cannula was administered by Celso Rodriguez RN; for low 02 sats; Verbal order read back and verified. 9:12:20 Heparin Flush Bag (1000units/500ml NS) 2 bags added to field was administered by Celso Rodriguez RN; used for procedure; Verbal order read back and verified. 9:12:30 Lidocaine 2% 20ml vial added to field was administered by Celso Rodriguez RN; for local anesthetic; Verbal order read back and verified. 9:12:42 Versed 2 mg I.V. was administered by Celso Rodriguez RN; for sedation; Verbal order read back and verified. 9:12:50 Fentanyl 100 mcg I.V. was administered by Celso Rodriguez RN; for sedation; Verbal order read back and verified. 9:14:47 Use device set Femoral Dx 9:14:49 ACIST Syringe (48456) opened to sterile field. 9:14:49 Bag Decanter (2002S) opened to sterile field. 9:14:50 Medline Cath Pack ([id number]) opened to sterile field. 9:14:51 ACIST Hand Control (09320) opened to sterile field. 9:14:52 ACIST Manifold (38709) opened to sterile field. 9:14:52 DIAGNOSTIC Multipack 5Fr catheter set (RL1856) opened to sterile field. 9:14:52 Tegaderm 4 x 4 (1626W) opened to sterile field. 9:14:53 SHEATH 5FR Souris (ZZV751) opened to sterile field. 9:14:54 EMERALD Guide Wire (316-000) opened to sterile field. 9:14:59 Procedure started. 9:17:13 Versed 1 mg I.V. was administered by Celso Rodriguez RN; for sedation; Verbal order read back and verified. 9:20:07 Local anesthetic to right femoral artery with Lidocaine 2% by Shorty Workman MD.INITIAL ACCESS ONLY 9:20:15 A 5 Fr sheath was inserted into the Right Femoral artery 9:24:40 GLIDE WIRE ANGLE 260cm (EQ0628) opened to sterile field. 9:25:39 Versed 1 mg I.V. was administered by Celso Rodriguez RN; for sedation; Verbal order read back and verified. 9:30:04 Sheath upsized to a 6 Fr Long. 9:30:32 SHEATH 6FR Brite Tip 35cm ([id number]) opened to sterile field. 9:34:18 Fentanyl 50 mcg I.V. was administered by Celso Rodriguez RN; for sedation; Verbal order read back and verified. 9:34:22 A MULTIPACK 3DRC 5Fr catheter was advanced over the wire and used for Right Coronary Angiography. 9:35:46 RCA angiography performed. 9:35:49 Injector settings: Ml/sec: 3, Volume: 6, 9:36:06 Catheter removed. 9:36:43 A MULTIPACK JL 4.0 5Fr catheter was advanced over the wire and used for Left Coronary Angiography. 9:37:27 LCA angiography performed. 9:37:33 Injector settings: Ml/sec: 3, Volume: 6, 9:38:25 Catheter removed. 9:38:42 A MULTIPACK Pigtail 5 Fr catheter was advanced over the wire and used for LV Angiography. 9:41:22 LV hemodynamics recorded. 9:41:23 LV gram done using GODDARD 9:41:27 Injector settings: Ml/sec: 5, Volume: 15, 9:41:45 EF : 25 % 9:41:49 Catheter removed. 9:42:06 INFLATOR Merit BasixCompak (NK6026) opened to sterile field. 9:42:07 WHISPER 300cm guide wire ([id number]) opened to sterile field. 9:42:18 GUIDE 6FR HS I catheter (LA6HSI) opened to sterile field. 9:42:46 Proceeding to intervention. 9:42:49 ACCDominant side:Right 9:42:55 ACC Pre-intervention CESAR Flow is 3. 9:43:02 6 Fr hs 1 guide catheter was inserted over the wire 9:43:33 Pre PCI Site: [place] PDA has 90% stenosis. 9:44:41 Heparin Bolus 5000 units I.V. was administered by Celso Rodriguez RN; for anticoagulation; Verbal order read back and verified. 9:44:42 whisper wire advanced. 9:45:37 Integrilin (Bolus 2mg/ml) 8.5 ml I.V. was administered by Celso Rodriguez RN; for antiplatelet therapy; Verbal order read back and verified. 9:45:49 Integrilin (Bolus 2mg/ml) 1.5 ml wasted was administered by Celso Rodriguez RN; to sharp's; Verbal order read back and verified. 9:48:00 Wire advanced across lesion. 9:48:33 Inflate balloon Inflation number: 1 A EMERGE OTW 3.0 x 15 balloon ([id number]) was prepped and advanced across the R PDA 90, then inflated to 12 JEREMY for 0:30 (min:sec) 0. 9:48:53 Fentanyl 50 mcg I.V. was administered by Celso Rodriguez RN; for sedation; Verbal order read back and verified. 9:49:11 Inflation number: 2 The EMERGE OTW 3.0 x 15 balloon ([id number]) was reinflated across the R PDA 90, to 4 JEREMY for 0:30 (min:sec) 0. 9:50:13 Inflation number: 3 The EMERGE OTW 3.0 x 15 balloon ([id number]) was reinflated across the R PDA 90, to 8 JEREMY for 0:10 (min:sec) 0. 9:52:59 Asahi Minamo 300cm wire opened to sterile field. 9:53:05 whisper wire removed; minamo wire advanced 9:54:34 Inflation number: 4 The EMERGE OTW 3.0 x 15 balloon ([id number]) was reinflated across the R PDA 90, to 6 JEREMY for 0:30 (min:sec) 0. 9:55:14 Balloon removed over the wire. 9:57:54 Place stent Inflation Number: 5 A CHACE OTW 3.5 x 12 stent ([id number]) was prepped and advanced across the R PDA 90. The stent was deployed at 14 JEREMY for 0:30 (min:sec) 0. 9:58:22 Stent catheter was removed intact over wire. 9:58:51 Wire removed. 9:59:00 Guide catheter removed. 9:59:09 SHEATH 6FR Souris (FVM897) opened to sterile field. 9:59:24 Post PCI Site: [place] PDA has 0% stenosis. 9:59:30 ACC Post-intervention CESAR Flow is 3. 9:59:46 EXOSEAL 6Fr (EX600) opened to sterile field. 10:00:12 Sheath upsized to a 6 Fr Short. 10:00:27 Sheath removed intact; hemostasis achieved with Exoseal to the Right Femoral artery. 10:00:29 Procedure ended.(Physican Out) 10:01:53 Fluoroscopy time 15.10 minutes. 10::58 Fluoroscopy dose: 1722 mGy 10::58 Flurop Dose total: 1722 10:02:08 Dose Area Product 82345 mGy/cm. 10:02:12 Contrast amount:Isovue 300 152ml. 10:02:15 Maximum allowable dose exceeded? No. 10:02:15 Sharps counted by scrub and verified by R.N. 10:02:17 Insertion/operative site no bleeding no hematoma. 10:02:21 Post-op/insertion site Right Femoral artery dressed using a 4 x 4 and Tegaderm. 10:02:24 Post Procedure Pulses reassessed and unchanged 10:02:28 Post procedure rhythm: unchanged. 10:02:31 Estimated blood loss: 5 ml 10:02:33 Post procedure instruction explained to patient.Patient verbalizes understanding. 10:02:35 Patient needs reinforcement of post procedure teaching. 10:03:04 Procedure type changed to Cath procedure, Diagnostic procedure, LHC, [facility] w/Coronaries, Sedation Charges, Moderate Sedation up to 45 minutes, PCI procedure, Coronary Stent, Coronary Stent Initial, Hemochron ACT Test 10:03:05 Procedure and supply charges have been captured, reviewed, submitted and are correct. 10:03:10 Procedure Complication : No complications 10:03:12 Vital chart was stopped 10:03:13 [facility] Findings: MVD- PCI performed (see procedure note) 10:03:17 Operative report dictated upon procedure completion. 10:03:19 See physician's report for complete and final results. 10:03:21 Report given to [facility]. 10:03:24 Patient transfered to [facility] with Stretcher. 10:03:34 Procedure ended. 10:03:34 Full Disclosure recording stopped 10:03:44 ACC-PCI Only Patient was given prescriptions, or instructed by Shorty Workman MD to start/continue the following medications upon discharge: Plavix 10:03:45 End room use (Document Last) 10:06:07 End room use (Document Last) 10:06:34 End room use (Document Last) 10:09:09 ACT drawn and resulted at ( High ) out of range seconds. (normal therapeutic range 180-240 seconds). Intervention Summary Intervention Notes Time ActionType Lesion and Equipment Action# Pressure Duration Attributes Used 9:48:33 Inflate R PDA EMERGE OTW 1 12 00:30 balloon 3.0 x 15 balloon ([id number]) 9:49:11 Reinflate R PDA EMERGE OTW 2 4 00:30 balloon 3.0 x 15 balloon ([id number]) 9:50:13 Reinflate R PDA EMERGE OTW 3 8 00:10 balloon 3.0 x 15 balloon ([id number]) 9:54:34 Reinflate R PDA EMERGE OTW 4 6 00:30 balloon 3.0 x 15 balloon ([id number]) 9:57:54 Place stent R PDA CHACE OTW 3.5 5 14 00:30 x 12 stent ([id number]) Device Usage Item Name Manufacture Quantity Catalog Number [facility] Part Current M inimal Lot# / Charge Number Stock Stock Serial# Code ACIST Syringe Acist 1 66195 349402 560248 398472 2 0 (35747) Medical Systems Inc Bag Decanter Microtek 1 2001S 345765 66597 215379 5 (2001S) Medical Inc. Medline Cath Medline 1 [id number] 794925 97683 100852 5 Pack ([id number]) ACIST Hand Acist 1 80676 693956 905810 205526 5 Control Medical (19315) Systems Inc ACIST Acist 1 03567 554039 797047 243605 5 Manifold Medical (77646) Systems Inc DIAGNOSTIC Cardinal 1 JS8925 758181 27523 718976 3 0 Multipack 5Fr Health catheter set (JG1601) Tegaderm 4 x 3M 1 1626W 971843 760475 546643 5 4 (1626W) SHEATH 5FR Terumo 1 MIT554 459922 491751 722807 5 Souris (YWT176) EMERALD Guide Cardinal 1 502-455 760769 975635 687321 5 Wire Health (502-455) GLIDE WIRE Terumo 1 GU9299 795437 903424 155689 5 ANGLE 260cm (EH1133) SHEATH 6FR Cardinal 1 [id number] 603746 689043 281877 1 Brite Tip Health 35cm (634953P) MULTIPACK Cardinal 1 311219 5 3DRC 5Fr Health catheter MULTIPACK JL Cardinal 1 348889 5 4.0 5Fr Health catheter MULTIPACK Cardinal 1 669866 5 Pigtail 5 Fr Health catheter INFLATOR Merit 1 PD5008 869575 863533 990300 1 5 [facility] Medical BasixCompak (VO3631) WHISPER 300cm Dent 1 [id number] 770274 288019 525460 5 guide wire Vascular (9910812TR) GUIDE 6FR HS Medtronic 1 LA6HSI 864143 49201 851800 1 I catheter (LA6HSI) EMERGE OTW [place] 1 [id number] 607505 277459 695167 5 [id number] 3.0 x 15 Scientific balloon ([id number]) [facility] 1 [id number] 763016 1070590 099666 0 300cm wire CHACE OTW 3.5 Medtronic 1 [id number] 996763 2566864 302758 5 [id number] x 12 stent ([id number]) SHEATH 6FR Terumo 1 KQJ021 520320 785823 227833 4 0 Souris (VKR474) EXOSEAL 6Fr Cardinal 1 EX600 004983 142973 396070 1 0 (EX600) Health Signature Audit [place] Stage Time Signature Unsigned Intra-Procedure 11/28/2019 Shanita Villalobos 10:06:07 AM RT(R) Intra-Procedure 11/28/2019 Celso 10:06:34 AM Jennifer RAMOS Intra-Procedure 11/28/2019 Shorty Regalado 10:12:47 AM Matt TREVIZO [facility] [address] [place] [address]
[2019-11-27 15:04] VITALS: BP 118/96
[2019-11-27 15:05] LABS: BASOPHILS 0.2 % (0-2); EOSINOPHILS 3.1 % (0-7); HEMATOCRIT 45.6 % (42.0-54.0); HEMOGLOBIN 15.4 g/dL (13.5-17.5); IMMATURE GRANULOCYTES 0.2 % (0-5); LYMPHOCYTES 27.6 % (15-50); MCH 31.6 pg (26.0-34.0); MCHC 33.8 g/dL (31.0-37.0); MCV 93.4 fL (80.0-100.0); MEAN PLATELET VOLUME 10.6 fL (7.4-10.4); NEUTROPHILS 59.9 % (40-80); PLATELET COUNT 191 10x3/uL (130-400); RBC 4.88 10x6/uL (4.20-6.10); RDW 17.3 % (11.5-14.5); WBC 12.3 10x3/uL (4.8-10.8)
[2019-11-27 15:18] LABS: CALC OSMOLALITY 280 mosm/kg (275-300); CARBON DIOXIDE 26.2 mmol/L (21.0-32.0); CHLORIDE - SERUM 103 mmol/L (98-107); CREATININE - SERUM 1.3 mg/dL (0.6-1.3); GLUCOSE 125 mg/dL (74-106); POTASSIUM - SERUM 3.3 mmol/L (3.5-5.1); SODIUM 140 mmol/L (136-145); UREA NITROGEN 14 mg/dL (7-18); eGFR NON AFRICAN AMERICAN 59 mL/min (90-120)
[2019-11-27 15:27] LABS: APTT 31.9 SECONDS (22.8-39.4); INR 1.29 (0.85-1.17)
[2019-11-27 15:39] LABS: ALBUMIN 3.4 g/dL (3.4-5.0); ALKALINE PHOSPHATASE 167 U/L (30-120); ALT (SGPT) 18 U/L (10-68); BILIRUBIN - TOTAL 0.71 mg/dL (0.2-1.3); CKMB 1.5 U/L (0.0-3.6); CREATINE KINASE 51 UL (21-232); PROTEIN - SERUM 7.7 g/dL (6.4-8.2)
[2019-11-27 15:41] LABS: TROPONIN-I 0.094 ng/mL (0.000-0.060)
--- NOTE | 2019-11-27 15:49 | NUR ---
LOW BP, PT PLACED IN [place] AND GIVEN 2 L OXYGEN AND STARTING 2ND 500ML BOLUS
[2019-11-27 16:24] VITALS: BP 97/75
[2019-11-27 16:41] VITALS: BP 108/63
--- NOTE | 2019-11-27 18:15 | NUR ---
NEW PATIENT ADMIT FROM ER VIA WHEELCHAIR ACCOMPANIED BY ER STAFF AND SPOUSE. PATIENT TRANSFERRED TO BED WITHOUT DIFFICULTY . PATIENT IS AWAKE, ALERT AND ORIENTED X 4. PATIENT DENIES ANY NEEDS OR PAIN. ASSESSMENT COMPLETED . TLEMETRY IN PLACE SB 56. DINNER TRAY ORDERED. VANESSA NOTIFIED OR ADMISSION. PATIENT REFUSED TO PUT GOWN ON AT THIS TIME WILL CONTINUE WITH PLAN OF CARE SR UP X 2 BED IN LOW POSTIION AND CALL LIGHT IN REACH.
[2019-11-27 18:48] VITALS: BP 108/63; Ht 177.8 cm; Wt 95.0 kg
--- NOTE | 2019-11-27 19:45 | NUR ---
REPORT RECIEVED AND INITIAL ROUNDS COMPLETED. PT RESTING IN BED WITH EYES CLOSED. RESPS EVEN/NONLABORED ON ROOM AIR. AT BEDSIDE. STATES PT IS SCARED THAT HE CAME BACK TO HOSPITAL FOR ONGOING CHEST PAIN. INSTRUCT ON NPO AFTER MIDNIGHT UNTIL SEEN BY DR ECHOLS IN AM.
[2019-11-27 20:00] VITALS: BP 108/69
--- NOTE | 2019-11-27 22:38 | NUR ---
BEDTIME MEDS GIVEN. DEMEROL IV GIVEN FOR PAIN. AT BEDSIDE.
[2019-11-28] VITALS: BP 109/63
--- NOTE | 2019-11-28 01:07 | NUR ---
AWAKE WITH C/O LEFT SHOULDER/ARM PAIN. MEDICATED WITH PERCOCET ONE TABLET.
[2019-11-28 04:30] VITALS: BP 144/80
[2019-11-28 04:39] LABS: BASOPHILS 0.1 % (0-2); EOSINOPHILS 2.4 % (0-7); HEMATOCRIT 40.4 % (42.0-54.0); HEMOGLOBIN 13.1 g/dL (13.5-17.5); IMMATURE GRANULOCYTES 0.3 % (0-5); LYMPHOCYTES 28.5 % (15-50); MCH 30.5 pg (26.0-34.0); MCHC 32.4 g/dL (31.0-37.0); MCV 94.2 fL (80.0-100.0); MEAN PLATELET VOLUME 11.6 fL (7.4-10.4); MONOCYTES 8.9 % (2-11); NEUTROPHILS 59.8 % (40-80); PLATELET COUNT 174 10x3/uL (130-400); RBC 4.29 10x6/uL (4.20-6.10); RDW 17.4 % (11.5-14.5); WBC 11.7 10x3/uL (4.8-10.8)
[2019-11-28 04:48] LABS: INR 1.37 (0.85-1.17); PROTIME 16.8 SECONDS (11.6-15.0)
[2019-11-28 05:15] LABS: ANION GAP 10.3 mmol/L (8-16); CALCIUM 8.6 mg/dL (8.5-10.1); CREATININE - SERUM 1.1 mg/dL (0.6-1.3); PHOSPHOROUS 2.9 mg/dL (2.5-4.9); POTASSIUM - SERUM 3.3 mmol/L (3.5-5.1)
[2019-11-28 05:19] LABS: TROPONIN-I 15.829 ng/mL (0.000-0.060)
--- NOTE | 2019-11-28 05:29 | NUR ---
CONTINUED TRENDING UP OF TROPONIN. NOW AT 15.829 PAGE/RETURN CALL FROM DR ECHOLS AT 0590, REPORTED ELEVATED TROPONIN. NEW ORDERS RECIEVED. PT HAS BEEN NPO. CATH TEAM WILL BE CALLED AT 0700 TO BE HERE FOR A 0900 CATH ON PATIENT.
[2019-11-28 08:21] VITALS: BP 122/66
[2019-11-28 09:47] LABS: CHOL - HDL RATIO 7.6 ratio (2.3-4.9); LDL-HDL RATIO 4.9 ratio (1.5-3.5)
--- NOTE | 2019-11-28 11:12 | MORECARE ---
CASE MANAGEMENT DISCHARGE SUMMARY PATIENT: DU GARCIA UNIT: [id number] ADM DATE: 11/27/19 AGE: 64 : 59 SEX: M ROOM/BED: D.2123 AUTHOR: ADALBERTO RICHARD PHYSICIAN: REFERRING PHYSICIAN: CHELSIE GALLAGHER MD DATE OF SERVICE: 11/28/19 Discharge Plan Patient Name: DU [facility]ARCIA [facility] [facility] 1955 Planned Disposition: Home Anticipated Discharge Date: 11/28/19 Discharge Date: Expected LOS: 1 Initial Reviewer: [email or web address] Initial Review Date: 11/27/2019 Generated: 11/28/19 12:12 pm Patient Name: DU GARCIA Page [id number] at 1112 All edits/amendments must be made on the electronic document DICTATION DATE: 11/28/19 111 COAT JOINER LOCKSTITCH: CASIMIRO 11/28/19 1112 RPT#: [id number] DC DATE: STATUS: ADM IN [facility] [address] [place] [address] END OF REPORT
--- NOTE | 2019-11-28 11:20 | MORECARE ---
CASE MANAGEMENT DISCHARGE SUMMARY PATIENT: DU GARCIA UNIT: [id number] ADM DATE: 11/27/19 AGE: 64 : 59 SEX: M ROOM/BED: D.2123 AUTHOR: ADALBERTO RICHARD PHYSICIAN: REFERRING PHYSICIAN: CHELSIE GALLAGHER MD DATE OF SERVICE: 11/28/19 Discharge Plan Patient Name: DU [facility]ARC[facility] [facility] 1955 Planned Disposition: Home Anticipated Discharge Date: 11/28/19 Discharge Date: Expected LOS: 1 Initial Reviewer: [email or web address] Initial Review Date: 11/27/2019 Generated: 11/28/19 12:19 pm DCPIA - Discharge Planning Initial Assessment Updated by [email or web address]: Dunia Jones on 11/28/19 11:16 am * Is the patient Alert and Oriented? Yes * PCP [facility] [place] [facility] [address] NICOLAS- PCP * [facility] IN [place], [place] * Preadmission Environment Home with Family * ADLs Independent * Equipment CPAP Walker Wheelchair * Other Equipment DENIES ANY ADDITIONAL DME * List name and contact numbers for known caregivers / representatives who currently or will assist patient after discharge: KENDAL GARCIA- - ALLEN [phone] * Community resources currently utilized None * Please name any agencies selected above. N/A * Additional services required to return to the preadmission environment? No * Can the patient safely return to the preadmission environment? Yes * Has this patient been hospitalized within the prior 30 days at any hospital? Yes Last DP export: 11/28/19 10:12 a Patient Name: DU GARCIA Page 17096 at 1120 All edits/amendments must be made on the electronic document DICTATION DATE: 11/28/19 1119 REAR LOAD TRUCK DRIVER: CASIMIRO 11/28/19 1119 RPT#: [id number] DC DATE: STATUS: ADM IN [facility] [address] [place] [address] END OF REPORT
--- NOTE | 2019-11-28 11:27 | MORECARE ---
CASE MANAGEMENT DISCHARGE SUMMARY PATIENT: DU GARCIA UNIT: [id number] ADM DATE: 11/27/19 AGE: 64 : 59 SEX: M ROOM/BED: D.0943 AUTHOR: HILARYDOC PHYSICIAN: REFERRING PHYSICIAN: CHELSIE GALLAGHER MD DATE OF SERVICE: 11/28/19 Discharge Plan Patient Name: DU GARCIA Facility: [facility]:[place] : 1955 Planned Disposition: Home Anticipated Discharge Date: 11/28/19 Discharge Date: Expected LOS: 1 Initial Reviewer: [email or web address] Initial Review Date: 11/27/2019 Generated: 11/28/19 12:26 pm Comments DCP- Discharge Planning Updated by [email or web address]: Dunia Jones on 11/28/19 10:[address] CM SPOKE WITH ORLY, THE NURSE STAFF, ON MED II. REQUESTED COPY OF HIS CARDIAC CATH [facility] FOR [facility] IF POSSIBLE TODAY AT DISCHARGE. DCP- Discharge Planning Updated by [email or web address]: Dunia Jones on 11/28/19 10:[address] PATIENT HAVING CARDIAC CATH THIS AM. EXPECTING DISCHARGE POST CATH TODAY. CM SPOKE WITH HIS ABOUT DISCHARGE PLANNING NEEDS. SHE DENIES ANY NEEDS FOR HOME HEALTH, COMMUNITY SERVICES OR DME. THE PATIENT IS FOLLOWED BY [facility]. HE OBTAINS HIS MEDICATIONS FROM THE [place] AND THE [facility] IN [place], [place]. SHE WOULD LIKE HIS INFORMATION FORWARDED TO DR NICOLAS, PATIENT'S PCP, AT THE [facility] FOR FOLLOW UP CARE THRU [facility]. THE DENIES ANY ADDITIONAL NEEDS. CM ADVISED HER I WOULD BE AVAILABLE IF NEEDED. DCPIA - Discharge Planning Initial Assessment Updated by [email or web address]: Dunia Jones on 11/28/19 11:16 am * Is the patient Alert and Oriented? Yes * [facility] [place] [facility] NICOLAS- PCP * [facility] IN [place], [place] * Preadmission Environment Home with Family * ADLs Independent * Equipment CPAP Walker Wheelchair * Other Equipment DENIES ANY ADDITIONAL DME * List name and contact numbers for known caregivers / representatives who currently or will assist patient after discharge: KENDAL GARCIA- - ALLEN GARCIAMIGA-[phone] * Community resources currently utilized None * Please name any agencies selected above. N/A * Additional services required to return to the preadmission environment? No * Can the patient safely return to the preadmission environment? Yes * Has this patient been hospitalized within the prior 30 days at any hospital? Yes Last DP export: 11/28/19 10:20 a Patient Name: DU GARCIA Page 94975 at 1127 All edits/amendments must be made on the electronic document DICTATION DATE: 11/28/19 112 BIOMEDICAL ANALYTICAL SCIENTIST: CASIMIRO 11/28/19 1126 RPT#: [id number] DC DATE: STATUS: ADM IN [facility] [address] [place] [address] END OF REPORT
--- NOTE | 2019-11-28 12:20 | CN ---
PATIENT NAME:DU GARCIA MEDICAL RECORD: [id number] : 59 LOCATION:D. D.2123 ADMIT DATE: 11/27/19 ACCOUNT: [id number] CONSULTING PHYSICIAN: JO-ANN ECHOLS MD REFERRING PHYSICIAN: CHELSIE GALLAGHER MD DATE OF CONSULTATION: 11/28/2019 HISTORY OF PRESENT ILLNESS: A 64-year-old gentleman with a known history of coronary artery disease, status post intervention, was actually seen by Dr. Kirby approximately 1 week ago with acute coronary syndrome, deferred intervention at that time, home medical therapy, had recurrent angina that is consistent with his cardiac enzymes consistent with NSTEMI at this point. We are asked to see him concerning his cardiovascular status. PAST MEDICAL HISTORY: Includes: 1. History of hypertension. 2. Coronary artery disease as described above. 3. Dyslipidemia. ALLERGIES: PENICILLIN, MORPHINE, EGG. MEDICATIONS: Typically include albuterol 2 puffs every 4 hours p.r.n., Plavix 75 every day, warfarin per scale, Lipitor 40 mg p.o. every day, lisinopril 5 every day, Imdur 90 every day, carvedilol 6.25 every day, Percocet 10/325 one every 6 hours p.r.n., Requip 3 mg at bedtime, trazodone 50 at bedtime, Remeron 15 at bedtime. SOCIAL HISTORY: Smokes about a pack a day, nondrinker. No set exercise program due to recent shoulder injury and a left AKA. REVIEW OF SYSTEMS: The patient reports easy bruising but reports no swollen glands. The patient reports no fever, no night sweats, no significant weight gain, no significant weight loss. No significant exercise tolerance. The patient reports no dry eyes, no irritation, no vision change. Patient reports no difficulty hearing and no ear pain. Patient reports no frequent nose bleeds or nose and sinus problems. Patient reports on arm pain on exertion. No shortness of breath while lying down. No history of heart murmur. Patient reports no cough, no wheezing or coughing up blood. Patient reports no abdominal pain, no vomiting. Normal appetite. No diarrhea and not vomiting blood. No nausea and no constipation. Patient reports no incontinence. No difficulty urinating. No hematuria. No increased frequency. Patient reports no muscle aches. No weakness, no arthralgias, no back pain. No swelling of the extremities. Patient reports no abnormal mole, no jaundice, no rashes. Reports no loss of consciousness. No weakness and no numbness. No seizures, dizziness, or headaches. The patient reports no depression, no sleep disturbance, feeling safe in a relationship and no alcohol abuse. Patient reports on fatigue. Reports no runny nose or sinus pressure. No itching, no hives, and no frequent sneezing. PHYSICAL EXAMINATION: GENERAL: Pleasant gentleman in no acute distress, appears stated age. VITAL SIGNS: Blood pressure 122/66, pulse 68 and regular. HEENT: Normocephalic, atraumatic. NECK: No JVD or bruit. HEART: Regular, S4 gallop is noted. CONSULT REPORT [id number] DU GARCIA LUNGS: Prolonged expiratory phase. Few expiratory wheezes. ABDOMEN: Soft, nontender. DIAGNOSTIC DATA: EKG shows nonspecific ST-T changes inferolaterally. IMPRESSION: Non-ST segment elevation myocardial infarction, failed medical therapy. PLAN: We will plan for angiography, intervention based on the above. TRANSINT:[id number] Voice Confirmation ID: [id number] DOCUMENT ID: [id number] JO-ANN ECHOLS MD at 1220 CC: [id number] DICTATION DATE: 11/28/19901 FIRE WARDEN: 11/28/19 1108 ADM IN [place] [id number] [place] [address]
[2019-11-28] MEDS ORDERED: EFFIENT10 MG PO (13:46)
--- NOTE | 2019-11-29 15:54 | MORECARE ---
CASE MANAGEMENT DISCHARGE SUMMARY PATIENT: DU GARCIA UNIT: [id number] ADM DATE: 11/27/19 AGE: 64 : 59 SEX: M ROOM/BED: D.8383 AUTHOR: HILARY,DOC PHYSICIAN: REFERRING PHYSICIAN: CHELSIE GALLAGHER MD DATE OF SERVICE: 11/29/19 Discharge Plan Patient Name: DU GARCIA Facility: [facility]:[place] : 1955 Planned Disposition: Home Anticipated Discharge Date: 11/28/19 Discharge Date: 11/28/2019 Expected LOS: 1 Initial Reviewer: [email or web address] Initial Review Date: 11/27/2019 Generated: 11/29/19 4:53 pm DCP- Discharge Planning Updated by [email or web address]: Dunia Jones on 11/28/19 10:[address] CM SPOKE WITH ORLY, THE BLOCK BOLTER MULE OPERATOR, ON MED II. REQUESTED COPY OF HIS CARDIAC CATH ON DISC FOR THE [facility] PCP IF POSSIBLE TODAY AT DISCHARGE. DCP- Discharge Planning Updated by [email or web address]: Dunia Jones on 11/28/19 10:[address] PATIENT HAVING CARDIAC CATH THIS AM. EXPECTING DISCHARGE POST CATH TODAY. CM SPOKE WITH HIS ABOUT DISCHARGE PLANNING NEEDS. SHE DENIES ANY NEEDS FOR HOME HEALTH, COMMUNITY SERVICES OR DME. THE PATIENT IS FOLLOWED BY [facility]. HE [place]TA[place]S FROM THE [place] AND THE [facility] IN [place], [place]. SHE WOULD LIKE HIS INFORMATION FORWARDED TO DR NICOLAS, PATIENT'S PCP, AT THE [facility] FOR FOLLOW UP CARE THRU [facility]. THE DENIES ANY ADDITIONAL NEEDS. CM ADVISED HER I WOULD BE AVAILABLE IF NEEDED. DCPIA - Discharge Planning Initial Assessment Updated by [email or web address]: Dunia Jones on 11/28/19 11:16 am * Is the patient Alert and Oriented? Yes * [facility] [place] DR NICOLAS- PCP * [facility] IN [place], [place] * Preadmission Environment Home with Family * ADLs Independent * Equipment CPAP Walker Wheelchair * Other Equipment DENIES ANY ADDITIONAL DME * List name and contact numbers for known caregivers / representatives who currently or will assist patient after discharge: KENDAL GARCIA- - ALLEN GARCIAAVRE-[id number]-[phone] * Community resources currently utilized None * Please name any agencies selected above. N/A * Additional services required to return to the preadmission environment? No * Can the patient safely return to the preadmission environment? Yes * Has this patient been hospitalized within the prior 30 days at any hospital? Yes Last DP export: 11/28/19 10:27 a Patient Name: DU GARCIA Page 09515 at 1554 All edits/amendments must be made on the electronic document DICTATION DATE: 11/29/191552 GENERAL I FARMWORKER: CASIMIRO 11/29/191552 RPT#: [id number] DC DATE:11/28/19 STATUS: DIS IN [facility] [address] [place] [address] END OF REPORT
--- NOTE | 2019-11-30 12:16 | OP ---
PATIENT NAME: DU GARCIA MEDICAL RECORD: [id number] :59 LOCATION:D.M2 D.2123 ADMISSION DATE:11/27/19 SURGEON: JO-ANN ECHOLS MD DATE OF OPERATION: 11/28/2019 PROCEDURE: Left heart catheterization, selective coronary angiography, right femoral artery approach. We had to traverse this with initially a 5-Palauan sheath using a glide catheter, we were able to traverse the common iliac and then place a long 6-Palauan sheath. May want to consider using a left femoral access at next case if indicated; however, finally we were able to proceed with LV&C. FINDINGS: Left ventriculography in 30-degree GODDARD view shows global hypokinesis, reduced LV function 20% to 25%. CORONARY ANATOMY: LEFT MAIN: Left main is free of disease. LAD: An area of previous stenting is widely patent. CIRCUMFLEX: Small vessel, free of disease. RIGHT CORONARY ARTERY: Has appears to be a thrombosed plaque with thrombus burden just for the takeoff of the PL to PD, obviously infarct related artery. Using the long 6-Palauan sheath, hockey stick guiding catheter provided good guide catheter support. We placed a wire down the PL branch and predilated with a 3.0 x 15 balloon. Stent deployed was a 3.5 x 12 Rg drug-eluting stent up to 14 atmospheres. There was some mild snowplowing to the PD branch; however, this was no more than 20%. OVERALL IMPRESSION: Successful percutaneous transluminal angioplasty stenting distal right/PL. Sheath closed with ExoSeal device. Switch to Effient since he is thrombosed while on Plavix and given at this point. TRANSINT:[id number] Voice Confirmation ID: [id number] DOCUMENT ID: [id number] JO-ANN ECHOLS MD at 1216 CC: [id number] DICTATION DATE: 11/28/19 1013 GENERAL CAR SUPERVISOR YARD: 11/28/19 1250 DIS IN 11/28/19 [place] [id number] [place] [address]
== END 2019-11-28 16:22 | disposition home or self-care (01) | DRG 247 ==
LOC: D.ER 14:32 → D.M2 16:22
PROVIDERS: Emergency Medicine; Family Medicine; Internal Medicine Interventional Cardiology; ADMIT Family Medicine; ATTEND Family Medicine
PROC: B2111ZZ Fluoroscopy of Multiple Coronary Arteries using Low Osmolar Contrast (ICD-10-PCS; 2019-11-28)
PROC: B2151ZZ Fluoroscopy of Left Heart using Low Osmolar Contrast (ICD-10-PCS; 2019-11-28)
PROC: 027034Z Dilation of Coronary Artery, One Artery with Drug-eluting Intraluminal Device, Percutaneous Approach (ICD-10-PCS; principal; 2019-11-28 08:28)
PROC: 4A023N7 Measurement of Cardiac Sampling and Pressure, Left Heart, Percutaneous Approach (ICD-10-PCS; 2019-11-28 08:28)
DX: I21.4 Non-ST elevation (NSTEMI) myocardial infarction (principal); F17.213 Nicotine dependence, cigarettes, with withdrawal; D64.9 Anemia, unspecified; I10 Essential (primary) hypertension; J44.9 Chronic obstructive pulmonary disease, unspecified; I25.110 Atherosclerotic heart disease of native coronary artery with unstable angina pectoris; E78.5 Hyperlipidemia, unspecified; E87.6 Hypokalemia; Z86.73 Personal history of transient ischemic attack (TIA), and cerebral infarction without residual deficits; Z79.01 Long term (current) use of anticoagulants; Z89.612 Acquired absence of left leg above knee

== ENCOUNTER 2019-12-09 01:33 | Inpatient (IN) | payer MEDICARE ==
[~2019-12-09] VITALS: Ht 152.4 cm; Wt 75.0 kg
[~2019-12-09 01:33] MED LIST changes: +EFFIENT10 MG PO
[2019-12-09 01:46] VITALS: BP 107/78
[2019-12-09 02:18] LABS: INR 1.41 (0.85-1.17); PROTIME 17.1 SECONDS (11.6-15.0)
[2019-12-09 02:19] LABS: BASOPHILS 0.3 % (0-2); CALC OSMOLALITY 280 mosm/kg (275-300); CALCIUM 8.4 mg/dL (8.5-10.1); CARBON DIOXIDE 25.2 mmol/L (21.0-32.0); CHLORIDE - SERUM 102 mmol/L (98-107); CREATININE - SERUM 1.7 mg/dL (0.6-1.3); EOSINOPHILS 2.7 % (0-7); HEMATOCRIT 43.9 % (42.0-54.0); HEMOGLOBIN 14.6 g/dL (13.5-17.5); IMMATURE GRANULOCYTES 0.2 % (0-5); LYMPHOCYTES 25.6 % (15-50); MCH 31.1 pg (26.0-34.0); MCHC 33.3 g/dL (31.0-37.0); MCV 93.4 fL (80.0-100.0); MEAN PLATELET VOLUME 10.8 fL (7.4-10.4); MONOCYTES 10.4 % (2-11); NEUTROPHILS 60.8 % (40-80); PLATELET COUNT 207 10x3/uL (130-400); POTASSIUM - SERUM 3.6 mmol/L (3.5-5.1); RDW 16.8 % (11.5-14.5); SODIUM 137 mmol/L (136-145); UREA NITROGEN 25 mg/dL (7-18); eGFR NON AFRICAN AMERICAN 44 mL/min (90-120)
[2019-12-09 02:20] LABS: GLUCOSE 158 mg/dL (74-106)
[2019-12-09 02:42] LABS: ALBUMIN 3.2 g/dL (3.4-5.0); ALKALINE PHOSPHATASE 145 U/L (30-120); ALT (SGPT) 31 U/L (10-68); BILIRUBIN - TOTAL 0.47 mg/dL (0.2-1.3); CKMB 3.9 U/L (0.0-3.6); CREATINE KINASE 94 UL (21-232); PROTEIN - SERUM 7.3 g/dL (6.4-8.2)
[2019-12-09 02:46] LABS: TROPONIN-I 0.335 ng/mL (0.000-0.060)
[2019-12-09 03:09] VITALS: BP 145/82
[2019-12-09 04:28] VITALS: BP 109/69
[2019-12-09 05:26] VITALS: Ht 152.4 cm; Wt 75.0 kg
[2019-12-09 05:58] LABS: CKMB 13.3 U/L (0.0-3.6); CREATINE KINASE 162 UL (21-232); TROPONIN-I 2.485 ng/mL (0.000-0.060)
--- NOTE | 2019-12-09 07:46 | NUR ---
REPORT RECEIVED FROM MASTIC FLOOR LAYER AND PATIENT CARE ASSUMED. PATIENT SITTING UP IN BS CHAIR WATCHING TV. PATIENT DENIES ANY NEEDS OR PAIN. WILL CONTINUE WITH PLAN IF CARE. SR UP X 2 BED IN LOW POSITION AND CALL LIGHT IN REACH.
--- NOTE | 2019-12-09 11:07 | MORECARE ---
CASE MANAGEMENT DISCHARGE SUMMARY PATIENT: DU GARCIA UNIT: [id number] ADM DATE: 12/09/19 AGE: 64 : 59 SEX: M ROOM/BED: D.2120 AUTHOR: ADALBERTO RICHARD PHYSICIAN: REFERRING PHYSICIAN: JO-ANN LOVELACE MD DATE OF SERVICE: 12/09/19 Discharge Plan Patient Name: DU GARCIA [facility] [facility] 1955 Planned Disposition: Home Anticipated Discharge Date: 12/09/19 Discharge Date: Expected LOS: 1 Initial Reviewer: [email or web address] Initial Review Date: 12/09/2019 Generated: 12/09/19 12:07 pm Patient Name: DU GARCIA Page 82571 at 1107 All edits/amendments must be made on the electronic document DICTATION DATE: 12/09/191106 AMF MECHANIC: CASIMIRO 12/09/19 1107 RPT#: [id number] DC DATE: STATUS: ADM IN [facility] [address] [place] [address] END OF REPORT
[2019-12-09] MEDS ORDERED: RANEXA500 MG PO (11:20)
[2019-12-09] MEDS ORDERED: ALDACTONE25 MG PO (11:20)
--- NOTE | 2019-12-09 11:20 | MORECARE ---
CASE MANAGEMENT DISCHARGE SUMMARY PATIENT: DU GARCIA UNIT: [id number] ADM DATE: 12/09/19 AGE: 64 : 59 SEX: M ROOM/BED: D.2120 AUTHOR: ADALBERTO RICHARD PHYSICIAN: REFERRING PHYSICIAN: JO-ANN LOVELACE MD DATE OF SERVICE: 12/09/19 Discharge Plan Patient Name: UD GARCIA [facility] [facility] 1955 Planned Disposition: Home Anticipated Discharge Date: 12/09/19 Discharge Date: Expected LOS: 1 Initial Reviewer: [email or web address] Initial Review Date: 12/09/2019 Generated: 12/09/19 12:20 pm Last DP export: 12/09/19 10:07 am Patient Name: DU GARCIA Page 52981 at 1120 All edits/amendments must be made on the electronic document DICTATION DATE: 12/09/19 1120 PRIMER POWDER BLENDER WET: CASIMIRO 12/09/19 1120 RPT#: [id number] DC DATE: STATUS: ADM IN [facility] [address] [place] [address] END OF REPORT
--- NOTE | 2019-12-09 11:27 | MORECARE ---
CASE MANAGEMENT DISCHARGE SUMMARY PATIENT: DU GARCIA UNIT: [id number] ADM DATE: 12/09/19 AGE: 64 : 59 SEX: M ROOM/BED: D.2060 AUTHOR: HILARY,DOC PHYSICIAN: REFERRING PHYSICIAN: JO-ANN LOVELACE MD DATE OF SERVICE: 12/09/19 Discharge Plan Patient Name: DU GARCIA Facility: [facility]:[place] : 1955 Planned Disposition: Home Anticipated Discharge Date: 12/09/19 Discharge Date: Expected LOS: 1 Initial Reviewer: [email or web address] Initial Review Date: 12/09/2019 Generated: 12/09/19 12:27 pm Comments DCP- Discharge Planning Updated by [email or web address]: Esteban Hull on 12/09/19 10:[address] Patient Name: DU GARCIA Admission Status: ER Accout number: [id number] Admission Date: 12-09-2019 : 1955 Admission Diagnosis: Attending: FELIPE Current LOS: 1 Anticipated DC Date: 12-09-2019 Planned Disposition: Home Primary Insurance: MEDICARE PART A ONLY Discharge Planning Comments: CM MET WITH PT IN ROOM TO DISCUSS DISCHARGE PLANNING AND NEEDS. PT REPORTS LIVING AT HOME INDEPENDENTLY WITH HIS . PT HAS NO CPAP, WALKER AND WHEELCHAIR FROM [place]. PT HAS NO OUTSIDE SERVICES ASSISTING IN THE HOME. CM DISCUSSED AVAILABILITY OF HOME HEALTH, REHAB SERVICES AND MEDICAL EQUIPMENT. PT DENIES DISCHARGE NEEDS, REPORTS HIS IS DOWNSTAIRS WAITING TO PICK HIM UP FOR DISCHARGE HOME NOW. COMBAT RIFLE CREWMEMBER NURSE AND SOSA RANDOLPH NOTIFIED. Patient Safety Officer: Esteban Hull DCPIA - Discharge Planning Initial Assessment Updated by [email or web address]: Esteban Hull on 12/09/19 11:25 am * Is the patient Alert and Oriented? Yes * How many steps to enter\exit or inside your home? RAMP * PCP DR. MORALES, [facility] * Pharmacy [facility] IN [place] * Preadmission Environment Home with Family * ADLs Independent * Equipment CPAP Walker Wheelchair * Other Equipment [employer] [facility] MED[employer] EQUIPMENT PROVIDER * List name and contact numbers for known caregivers / representatives who currently or will assist patient after discharge: KENDAL GARCIA, SPOUSE, * Verbal permission to speak to the caregivers and representatives has been obtained from the patient. N/A * Community resources currently utilized None * Additional services required to return to the preadmission environment? No * Can the patient safely return to the preadmission environment? Yes * Has this patient been hospitalized within the prior 30 days at any hospital? Yes Last DP export: 12/09/19 10:21 am Patient Name: DU GARCIA Page 66947 at 1127 All edits/amendments must be made on the electronic document DICTATION DATE: 12/09/191126 ELECTRICAL ASSEMBLER: CASIMIRO 12/09/191126 RPT#: [id number] DC DATE: STATUS: ADM IN [facility] [address] [place] [address] END OF REPORT
== END 2019-12-09 12:36 | disposition home or self-care (01) | DRG 281 ==
LOC: D.ER 01:33 → D.M2 03:34
PROVIDERS: Family Medicine; ADMIT Family Medicine; ATTEND Family Medicine
DX: I21.A1 Myocardial infarction type 2 (principal); N17.9 Acute kidney failure, unspecified; F17.203 Nicotine dependence unspecified, with withdrawal; I25.5 Ischemic cardiomyopathy; I25.119 Atherosclerotic heart disease of native coronary artery with unspecified angina pectoris; I10 Essential (primary) hypertension; E78.5 Hyperlipidemia, unspecified; J44.9 Chronic obstructive pulmonary disease, unspecified; K21.9 Gastro-esophageal reflux disease without esophagitis; M19.90 Unspecified osteoarthritis, unspecified site; H26.9 Unspecified cataract

== ENCOUNTER 2019-12-28 21:20 | Emergency (ER) | payer OTHER ==
[~2019-12-28] VITALS: Ht 175.3 cm; Wt 95.0 kg
[~2019-12-28 21:20] MED LIST changes: +ALDACTONE25 MG PO; +RANEXA500 MG PO
[2019-12-28 21:34] VITALS: Ht 175.3 cm; Wt 95.0 kg
[2019-12-28] MEDS ORDERED: COUMADIN5 MG PO (22:51)
[2019-12-28 22:55] LABS: BASOPHILS 0.3 % (0-2); EOSINOPHILS 2.4 % (0-7); HEMATOCRIT 41.3 % (42.0-54.0); HEMOGLOBIN 13.4 g/dL (13.5-17.5); IMMATURE GRANULOCYTES 0.3 % (0-5); LYMPHOCYTES 22.8 % (15-50); MCH 30.7 pg (26.0-34.0); MCHC 32.4 g/dL (31.0-37.0); MCV 94.5 fL (80.0-100.0); MONOCYTES 9.6 % (2-11); NEUTROPHILS 64.6 % (40-80); PLATELET COUNT 196 10x3/uL (130-400); RBC 4.37 10x6/uL (4.20-6.10); RDW 17.4 % (11.5-14.5)
[2019-12-28 23:06] LABS: APTT 32.7 SECONDS (22.8-39.4); CALC OSMOLALITY 277 mosm/kg (275-300); CALCIUM 8.1 mg/dL (8.5-10.1); CARBON DIOXIDE 24.4 mmol/L (21.0-32.0); CHLORIDE - SERUM 107 mmol/L (98-107); CREATININE - SERUM 1.3 mg/dL (0.6-1.3); INR 1.93 (0.85-1.17); POTASSIUM - SERUM 3.8 mmol/L (3.5-5.1); PROTIME 21.8 SECONDS (11.6-15.0); SODIUM 139 mmol/L (136-145); UREA NITROGEN 13 mg/dL (7-18); eGFR NON AFRICAN AMERICAN 59 mL/min (90-120)
[2019-12-28 23:13] LABS: GLUCOSE 104 mg/dL (74-106)
[2019-12-28 23:27] LABS: ALKALINE PHOSPHATASE 138 U/L (30-120); ALT (SGPT) 21 U/L (10-68); BILIRUBIN - TOTAL 0.54 mg/dL (0.2-1.3); CKMB 1.7 U/L (0.0-3.6); CREATINE KINASE 53 UL (21-232); MAGNESIUM - SERUM 2.1 mg/dL (1.8-2.4); PROTEIN - SERUM 6.9 g/dL (6.4-8.2)
[2019-12-29 00:01] VITALS: BP 94/57
== END 2019-12-29 00:01 | disposition home or self-care (01) ==
LOC: D.ER 21:20
PROVIDERS: Emergency Medicine
DX: R07.89 Other chest pain (principal); I24.9 Acute ischemic heart disease, unspecified; Z86.73 Personal history of transient ischemic attack (TIA), and cerebral infarction without residual deficits; I25.2 Old myocardial infarction; J44.9 Chronic obstructive pulmonary disease, unspecified; Z72.0 Tobacco use

== ENCOUNTER 2020-03-10 20:11 | Inpatient (IN) | payer OTHER ==
[~2020-03-10] VITALS: Ht 177.8 cm; Wt 87.4 kg
--- NOTE | ~2020-03-10 | HEMODYNAMI ---
PATIENT:DU GARCIA MEDICAL RECORD: [id number] : 59 LOCATION:[facility] D.8 ADMISSION DATE: 03/11/20 Generatedon:03/12/20209:45 Patient name: DU GARCIA Patient #: [id number] : 1955 Date of study: 03/12/2020 Page: Of Hemodynamic Procedure Report Patient Data Patient Demographics Procedure consent was obtained First Name: DU Gender: Male Last Name: JOSE : 1955 Patient #: [id number] Age: 64 year(s) Race: SSN: [id number] Additional ID: [id number] Contact details Address: [address] [place] [address] State: [place] City: [place] Zip code: [address] Past Medical History Allergies Allergen Reaction Date Comments Reported Other allergy 08/05/2019 PCN, EGGS, MORPHINE Other allergy 03/12/2020 EGGS, PCN/MORPHINE Admission Admission Data Admission Date: 03/11/2020 Admission Time: 20:48 Room #: D.2118 Height (in.): 48 BSA: 1.16 (m2) Height (cm.): 121.92 BMI: 28.93 (kg/m2) Weight (lbs.): 94.8 Weight (kg.): 43 Lab Results Lab Result Date: 03/12/2020 Lab Result Time: 0:00 Biochemistry Name Units Result Min Max BUN mg/dl 14 --(--*-)-- 7 18 Creatinine mg/dl 1.4 --(----)*- 0.6 1.3 eGFR ml/min 66 *-(----)-- 90 120 NONAFRICAN CBC Name Units Result Min Max Hematocrit % 41.8 -*(----)-- 42 54 Hemoglobin g/dl 13.4 -*(----)-- 13.5 17.5 Procedure Procedure Types Cath Procedure Diagnostic Procedure LHC LHC w/Coronaries Sedation Charges Moderate Sedation up to 30 minutes PCI Procedure Coronary Stent Coronary Stent Initial Hemochron ACT Test Procedure Description Procedure Date Procedure Date: 03/12/2020 Procedure Start Time: 9:21 Procedure End Time: 9:43 Procedure Staff Name Function Shorty Workman MD Performing Physician Bette Sharpe RT Scrub Cyndi Morales RT Monitor Gayatri Menendez RN Nurse Procedure Data Cath Procedure Fluoroscopy Diagnostic fluoroscopy Total fluoroscopy Time: 5.2 time: 5.2 min min Diagnostic fluoroscopy Total fluoroscopy dose: dose: 1005 mGy 1005 mGy Contrast Material Contrast Material Type Amount (ml) Isovue 300 87 Entry Location Entry Primary Successful Side Size Upsize Upsize 2 Entry Closure Rae ccessful Closure Location (Fr) 1 (Fr) (Fr) Remarks Device Remarks Femoral Left 5 Fr 6 Fr 6 Fr Exoseal artery Short Mid-Length Estimated blood loss: 10 ml Diagnostic catheters Device Type Used For End Catheter Placement MULTIPACK 3DRC 5Fr Right Coronary catheter Angiography MULTIPACK JL 4.0 5Fr Left Coronary catheter Angiography MULTIPACK Pigtail 5 Fr LV Angiography catheter Procedure Complications No complications Procedure Medications Medication Administration Route Dosage Versed I.V. 2 mg Fentanyl I.V. 50 mcg 0.9% NaCl I.V. 100 ml/hr Oxygen etCO2 Nasal cannula 2 l/min Lidocaine 2% added to field 20 Heparin Flush Bag added to field 2 bags (1000units/500ml NS) Heparin Bolus I.V. 5000 units Integrilin (Bolus I.V. 7.9 ml 2mg/ml) Integrilin (Bolus wasted 2.1 ml 2mg/ml) Fentanyl I.V. 50 mcg Hemodynamics Rest BSA: 1.16 (m2) HGB: 13.4 (g/dl) O2 Consumption: Estimated: 133.24 (ml/min) O2 Co nsumption indexed: Estimated:114.86 (ml/min/m) Heart Rate: 64 (bpm) Pressure Samples Time Site Value (mmHg) Purpose Heart Use Rate(bpm) 9:26 LV 119/42,16 Snapshot 94 9:27 AO 122/68(92) Pullback 76 Gradients Valve Time Site Site 2 Mean SEP/DFP Peak To Heart Use 1 (mmHg) (sec/min) Peak Rate (mmHg) (bpm) Aortic 9:27 LV AO 6 18 76 122/68(92) Calculations Valve P-P Mean Valve Index Valve Source Name Gradient Area Flow (cm2) Aortic 6 6 Snapshots Pre Cath Intra NCS Post Cath Vital Signs Time Heart Resp SPO2 etCO2 NIBP (mmHg) Rhythm Pain Sedation Rate (ipm) (%) (mmHg) Status Level (bpm) 9:06:33 68 18 96 14.9 142/80(124) NSR 0 (11) 10(A) , No pain 9:08:34 69 14 97 15.7 149/85(130) NSR 0 (11) 10(A) , No pain 9:12:44 69 19 96 36.6 137/88(121) NSR 0 (11) 10(A) , No pain 9:17:04 68 17 96 47.1 144/77(120) NSR 0 (11) 10(A) , No pain 9:21:24 63 17 97 29.1 150/74(127) NSR 0 (11) 10(A) , No pain 9:25:42 76 19 97 59.8 146/81(114) NSR 0 (11) 9(A) , No pain 9:30:03 83 16 96 40.4 136/80(103) NSR 0 (11) 9(A) , No pain 9:34:21 75 16 97 51.6 144/84(116) NSR 0 (11) 9(A) , No pain 9:38:39 82 17 98 41.9 137/85(116) NSR 0 (11) 10(A) , No pain 9:42:55 79 18 98 22.4 155/100(141) NSR 0 (11) 10(A) , No pain Medications Time Medication Route Dose Verified Delivered Reason Notes Effectiveness by by 9:14:42 Versed I.V. 2 mg Shorty Mendieta for sedation St Matt Menendez MD RN 9:14:53 Fentanyl I.V. 50 Shorty Mendieta for sedation mcg St Matt Menendez MD RN 9:16:11 0.9% NaCl I.V. 100 Shorty Mendieta used for ml/hr St Matt dennis MD, RN 9:16:22 Oxygen etCO2 2 Shorty Mendieta used for Nasal l/min St Matt Menendez procedure cannula MD RAMOS 9:16:30 Lidocaine 2% added 20ml Shorty Oro for local to vial [facility] anesthetic field MD TREVIZO 9:16:35 Heparin Flush added 2 Shorty Oro used for Bag to bags [facility] John procedure (1000units/500ml field MD TREVIZO NS) 9:20:44 Fentanyl I.V. 50 Shorty Lopeza for sedation mcg St Matt Menendez MD RN 9:31:12 Heparin Bolus I.V. 5000 Shorty Mendieta for verifi ed units St Matt Menendez anticoagulation with Dr. TREVIZO RN [facility] Gut[facility] 9:31:28 Integrilin I.V. 7.9 Shorty Gayatri for (Bolus 2mg/ml) ml St Matt Menendez antiplatelet RN therapy 9:31:44 Integrilin wasted 2.1 Shorty Lopeza for (Bolus 2mg/ml) ml St Matt Menendez antiplatelet RN therapy Procedure Log Time Note 8:24:07 Informed consent obtained and on chart 8:24:59 Procedure Status Urgent Heart Cath (IP). 8:25:03 Time tracking: Regular hours (M-F 7:00 - 5:00) 8:25:10 Plan of Care:Hemodynamics will remain stable., Cardiac rhythm will remain stable., Comfort level will be maintained., Respiratory function will remain adequate., Patient/ family verbilizes understanding of procedure., Procedure tolerated without complication., Recovers from procedure without complications.. 8:25:29 H&P Date Dictated: 03/11/2020 ER History on chart.. 8:26:41 Lab Result : BUN 14 mg/dl 8:26:41 Lab Result : eGFR NONAFRICAN 66 ml/min 8:26:41 Lab Result : Creatinine 1.4 mg/dl 8:26:41 Lab Result : Hemoglobin 13.4 g/dl 8:26:41 Lab Result : Hematocrit 41.8 % 8:42:57 Patient Weight : 94.8 lbs 8:43:04 Patient Height : 48 inches 8:44:24 Bette Sharpe RT(R) sent for patient. Start room use. 9:00:11 Patient received from Med II to CCL 1 Alert and oriented. Tansferred to table in Supine position. 9:07:23 Warm blankets applied, and willard hugger turned on for patient comfort. 9:07:24 Correct patient and procedure confirmed by team. 9:07:24 ECG and BP/O2 sat monitors applied to patient. 9:07:25 Vital chart was started 9:07:27 Baseline sample Acquired. 9:08:19 Rhythm: sinus rhythm 9:08:22 Pre-procedure instructions explained to patient. 9:08:23 Pre-op teaching completed and patient verbalized understanding. 9:08:27 Family in patients room. 9:08:40 Patient NPO since Midnight. 9:10:48 Patient allergic to Other allergyEGGS, PCN/MORPHINE 9:10:52 Is the patient allergic to Iodine/contrast media? No. 9:10:54 Was the patient premedicated? Yes 9:11:02 Is patient on blood thinner?Yes 9:11:06 ACC The patient was administered the following blood thiners within the last 24 hours: ACCPlavix 9:11:22 Patient diabetic? Yes. 9:11:29 ----Pre-sedation anethsthesia assessment.---- 9:11:33 Previous problem with sedation/anesthesia? No ? 9:11:36 Snore? Yes 9:11:38 Sleep apnea? Yes 9:11:41 Opens mouth fully? Yes 9:11:43 Sticks out tongue? Yes 9:11:48 Airway obstruction? Yes COPD 9:11:53 Dentures? No ? 9:12:29 Zero performed for pressure channel P1 9:13:05 IV patent on arrival in left forearm with 0.9% NaCl at [facility]. 9:13:16 Left groin area was prepped with chlora-prep and draped in sterile fashion 9:13:18 Alarms reviewed by R. N. 9:13:19 Sharps counted by scrub and verified by R.N. 9:13:20 Physician arrived 9:13:21 --------ALL STOP TIME OUT------ 9:13:22 Final Timeout: patient, procedure, and site verified with staff and physician. All members of the team are in agreement. 9:13:25 Left groin site verified by team. 9:13:32 Fire Safety Assessment: A--An alcohol-based skin anteseptic being used preoperatively., C--Open oxygen or nitrous oxide is being used., D--An ESU, laser, or fiber-optic light is being used. 9:13:38 Physical assessment completed. ASA score P 3 - A patient with severe systemic disease as per Shorty Workman MD. 9:13:45 3a) 45-59 Moderately reduced kidney function. 9:13:50 Maximum allowable contrast dose (3.7 X eGFR X 0.75)150 ml. 9:13:57 Sedation plan: IV Moderate Sedation Medication:Versed, Fentanyl 9:14:00 Procedure started. 9:14:01 Use device set Femoral Dx 9:14:03 ACIST Syringe (23739) opened to sterile field. 9:14:03 Bag Decanter (2002S) opened to sterile field. 9:14:04 Medline Cath Pack ([id number]) opened to sterile field. 9:14:06 ACIST Hand Control (42352) opened to sterile field. 9:14:06 ACIST Manifold (18741) opened to sterile field. 9:14:07 DIAGNOSTIC Multipack 5Fr catheter set ([id number]) opened to sterile field. 9:14:09 Tegaderm 4 x 4 (1626W) opened to sterile field. 9:14:11 SHEATH 5FR Alfred (ISJ358) opened to sterile field. 9:14:14 EMERALD Guide Wire (916-629) opened to sterile field. 9:14:24 Local anesthetic to left femerol artery with Lidocaine 2% by Shorty Workman MD.INITIAL ACCESS ONLY 9:14:42 Versed 2 mg I.V. was administered by Gayatri Menendez RN; for sedation; Verbal order read back and verified. 9:14:53 Fentanyl 50 mcg I.V. was administered by Gayatri Menendez RN; for sedation; Verbal order read back and verified. 9:16:11 0.9% NaCl 100 ml/hr I.V. was administered by Gayatri Menendez RN; used for procedure; Verbal order read back and verified. 9:16:22 Oxygen 2 l/min etCO2 Nasal cannula was administered by Gayatri Menendez RN; used for procedure; Verbal order read back and verified. 9:16:30 Lidocaine 2% 20ml vial added to field was administered by Shorty Workman MD; for local anesthetic; Verbal order read back and verified. 9:16:35 Heparin Flush Bag (1000units/500ml NS) 2 bags added to field was administered by Shorty Workman MD; used for procedure; Verbal order read back and verified. 9:16:50 Full Disclosure recording started 9:17:08 A 5 Fr sheath was inserted into the Left Femoral artery 9:19:15 AMPLATZ Super Stiff 75cm wire ([id number]) opened to sterile field. 9:19:40 SHEATH 6FR Alfred (UON415) opened to sterile field. 9:19:54 Sheath upsized to a 6 Fr Short. 9:20:02 A MULTIPACK 3DRC 5Fr catheter was advanced over the wire and used for Right Coronary Angiography. 9:20:44 Fentanyl 50 mcg I.V. was administered by Gayatri Menendez RN; for sedation; Verbal order read back and verified. 9:23:26 RCA angiography performed. 9:23:31 Injector settings: Ml/sec: 3, Volume: 6, 9:23:34 Catheter removed. 9:23:42 A MULTIPACK JL 4.0 5Fr catheter was advanced over the wire and used for Left Coronary Angiography. 9:24:21 LCA angiography performed. 9:24:25 Injector settings: Ml/sec: 3, Volume: 6, 9:25:03 Catheter removed. 9:25:09 A MULTIPACK Pigtail 5 Fr catheter was advanced over the wire and used for LV Angiography. 9:25:21 Injector settings: Ml/sec: 5, Volume: 15, 9:25:24 LV gram done using GODDARD 9:25:56 LV hemodynamics recorded. 9:27:28 EF : 20 % 9:27:30 Catheter removed. 9:30:27 SHEATH 6FR Destination (RSR01) opened to sterile field. 9:30:51 GUIDE 6FR HS I catheter (LA6HSI) opened to sterile field. 9:30:52 INFLATOR Merit BasixCompak (NV4765) opened to sterile field. 9:30:53 WHISPER 300cm guide wire ([id number]) opened to sterile field. 9:31:12 Heparin Bolus 5000 units I.V. was administered by Gayatri Menendez RN; for anticoagulation; verified with Dr. Hallman Verbal order read back and verified. 9:31:17 Proceeding to intervention. 9:31:25 ACC Pre-intervention CESAR Flow is 3. 9:31:28 Integrilin (Bolus 2mg/ml) 7.9 ml I.V. was administered by Gayatri Menendez RN; for antiplatelet therapy; Verbal order read back and verified. 9::44 Integrilin (Bolus 2mg/ml) 2.1 ml wasted was administered by Gayatri Menendez RN; for antiplatelet therapy; Verbal order read back and verified. 9::44 Sheath upsized to a 6 Fr Mid-Length. 9:32:05 Pre PCI Site: [place] pRCA has 90% stenosis. 9:32:35 6 Fr HS1 guide catheter was inserted over the wire 9:33:58 [id number] wire advanced. 9:37:03 Wire advanced across lesion. 9:37:52 Place stent Inflation Number: 1 A INTEGRITY RX 4.0 x 15 stent ([id number]) was prepped and advanced across the Prox RCA . The stent was deployed at 14 JEREMY for 0:25 (min:sec) . 9:38:17 ACC Post-intervention CESAR Flow is 3. 9:38:20 Stent catheter was removed intact over wire. 9:38:21 Wire removed. 9:38:22 Guide catheter removed. 9:39:13 THE DESTINATION SHEATH IS EXCHANGED FOR THE SHORT 6 [place] SHEATH. 9:39:18 EXOSEAL 6Fr (EX600) opened to sterile field. 9:39:33 Post PCI Site: [place] pRCA has 0% stenosis. 9:40:56 Sheath removed intact; hemostasis achieved with Exoseal to the Left Femoral artery. 9:40:59 Procedure ended.(Physican Out) 9:41:04 Fluoroscopy time 05.20 minutes. 9:41:09 Fluoroscopy dose: 1005 mGy 9:41:09 Flurop Dose total: 1005 9:41:18 Dose Area Product 50872 mGy/cm. 9:41:25 Contrast amount:Isovue 300 87ml. 9:41:29 Maximum allowable dose exceeded? No. 9:41:30 Sharps counted by scrub and verified by R.N. 9:41:37 Post-op/insertion site Left Femoral artery dressed using a 4 x 4 and Tegaderm. 9:41:44 Post-procedure physical assessment completed. ASA score P 3 - A patient with severe systemic disease as per Shorty Workman MD. 9:41:49 Post procedure rhythm: unchanged. 9:41:53 Estimated blood loss: 10 ml 9:41:54 Post procedure instruction explained to patient.Patient verbalizes understanding. 9:41:55 Patient needs reinforcement of post procedure teaching. 9:42:52 Procedure type changed to Cath procedure, Diagnostic procedure, LHC, [facility] w/Coronaries, Sedation Charges, Moderate Sedation up to 30 minutes, PCI procedure, Coronary Stent, Coronary Stent Initial, Hemochron ACT Test 9:42:54 Procedure and supply charges have been captured, reviewed, submitted and are correct. 9:43:29 Procedure Complication : No complications 9:43:31 ACT drawn and resulted at 373 seconds. (normal therapeutic range 180-240 seconds). 9:43:36 Vital chart was stopped 9:43:39 [facility] Findings: MVD- PCI performed (see procedure note) 9:43:41 Operative report dictated upon procedure completion. 9:43:43 See physician's report for complete and final results. 9:43:45 Report given to [facility]. 9:43:51 Patient transfered to [facility] II with Bed. 9:43:55 Procedure ended. 9:43:55 Full Disclosure recording stopped 9:44:02 ACC-PCI Only Patient was given prescriptions, or instructed by Shorty Workman MD to start/continue the following medications upon discharge: Effient 9:44:04 End room use (Document Last) Intervention Summary Intervention Notes Time ActionType Lesion and Equipment Action# Pressure Duration Attributes Used 9:37:52 Place stent Prox RCA INTEGRITY RX 1 14 00:25 4.0 x 15 stent ([id number]) Device Usage Item Name Manufacture Quantity Catalog Hospital Part Current Minimal Lot# / Number Charge Number Stock Stock Serial# Code ACIST Acist 1 64729 574824 811190 715177 20 Syringe Medical (22259) Systems Inc Bag Decanter Microtek 1 772779 34586 705196 5 () Medical Inc. Medline Cath Medline 1 [id number] 006762 17429 083201 5 Pack ([id number]) ACIST Hand Acist 1 13077 588326 472242 627399 5 Control Medical (37096) Systems Inc ACIST Acist 1 78367 963837 460008 882805 5 Manifold Medical (91107) Systems Inc DIAGNOSTIC Cardinal 1 [id number] 284842 87061 132440 30 Matchmaker Videos 5Fr catheter set (BS0611) Tegaderm 4 x 3M 1 1626W 801639 626055 631318 5 4 (1626W) SHEATH 5FR Terumo 1 SNH839 845791 952666 017258 5 Alfred (EJF279) EMERALD Cardinal 1 502-455 643895 757652 633819 5 Guide Wire Health (502-455) AMPLATZ [place] 1 [id number] 428569 545502 543066 5 Super Stiff Scientific 75cm wire ([id number]) SHEATH 6FR Terumo 1 ICD596 193746 840866 421357 40 Alfred (UTX024) MULTIPACK Cardinal 1 595177 5 3DRC 5Fr Health catheter MULTIPACK JL Cardinal 1 981801 5 4.0 5Fr Health catheter MULTIPACK Cardinal 1 942424 5 Pigtail 5 Fr Health catheter SHEATH 6FR Terumo 1 RSR01 957653 21656 772264 5 Destination (RSR01) GUIDE 6FR HS Medtronic 1 LA6HSI 887826 68162 507850 1 I catheter (LA6HSI) INFLATOR [facility] 1 SN4762 120343 459873 141533 15 [facility] Medical BasixCompak (WL6462) WHISPER Dent 1 [id number] 781783 496510 183091 5 300cm guide Vascular wire ([id number]) INTEGRITY RX Medtronic 1 [id number] 225281 188235 943421 5 4.0 x 15 stent ([id number]) EXOSEAL 6Fr Cardinal 1 EX600 673673 337805 340175 10 (EX600) Health Signature Audit [place] Stage Time Signature Unsigned Intra-Procedure 03/12/2020 Cyndi 9:44:28 AM Carmen RT(R) (CV) Intra-Procedure 03/12/2020 Gayatri Menendez 9:45:08 AM RN Intra-Procedure 03/12/2020 Shorty Regalado 9:45:40 AM Matt [facility] [address] [place] [address]
[2020-03-10 20:33] VITALS: BP 139/60
[2020-03-10 20:33] LABS: BASOPHILS 0.2 % (0-2); EOSINOPHILS 2.7 % (0-7); HEMATOCRIT 41.8 % (42.0-54.0); HEMOGLOBIN 13.4 g/dL (13.5-17.5); IMMATURE GRANULOCYTES 0.3 % (0-5); LYMPHOCYTES 20.8 % (15-50); MCH 30.3 pg (26.0-34.0); MCHC 32.1 g/dL (31.0-37.0); MCV 94.6 fL (80.0-100.0); MEAN PLATELET VOLUME 11.1 fL (7.4-10.4); MONOCYTES 9.2 % (2-11); NEUTROPHILS 66.8 % (40-80); RBC 4.42 10x6/uL (4.20-6.10); RDW 16.7 % (11.5-14.5); WBC 12.8 10x3/uL (4.8-10.8)
[2020-03-10 20:36] LABS: PLATELET COUNT 215 10x3/uL (130-400)
[2020-03-10 20:42] LABS: CALC OSMOLALITY 279 mosm/kg (275-300); CALCIUM 8.5 mg/dL (8.5-10.1); CARBON DIOXIDE 26.9 mmol/L (21.0-32.0); CHLORIDE - SERUM 103 mmol/L (98-107); CREATININE - SERUM 1.4 mg/dL (0.6-1.3); GLUCOSE 152 mg/dL (74-106); POTASSIUM - SERUM 3.3 mmol/L (3.5-5.1); SODIUM 138 mmol/L (136-145); UREA NITROGEN 14 mg/dL (7-18); eGFR NON AFRICAN AMERICAN 54 mL/min (90-120)
[2020-03-10 20:48] LABS: APTT 52.3 SECONDS (22.8-39.4)
[2020-03-10 20:52] LABS: INR 3.54 (0.85-1.17); PROTIME 34.8 SECONDS (11.6-15.0)
[2020-03-10 21:00] VITALS: BP 125/68
[2020-03-10 21:03] LABS: ALBUMIN 2.9 g/dL (3.4-5.0); ALKALINE PHOSPHATASE 135 U/L (30-120); ALT (SGPT) 18 U/L (10-68); BILIRUBIN - TOTAL 0.42 mg/dL (0.2-1.3); CKMB 2.3 U/L (0.0-3.6); CREATINE KINASE 59 UL (21-232); MAGNESIUM - SERUM 2.4 mg/dL (1.8-2.4); PROTEIN - SERUM 6.9 g/dL (6.4-8.2)
[2020-03-10 21:04] LABS: TROPONIN-I 0.195 ng/mL (0.000-0.060)
[2020-03-10 22:00] VITALS: BP 144/83
[2020-03-10 23:00] VITALS: BP 142/78
[2020-03-11] VITALS: BP 134/70
[2020-03-11 02:03] LABS: CKMB 14.6 U/L (0.0-3.6); CREATINE KINASE 120 UL (21-232)
[2020-03-11 02:05] LABS: TROPONIN-I 2.773 ng/mL (0.000-0.060)
--- NOTE | 2020-03-11 02:20 | NUR ---
DR. CRUMP CALLED FOR JUMP IN TROPONIN. IT WENT FROM 0.[address] CRUMP SAID HE WOULD SEE THE PATIENT IN THE MORNING.
[2020-03-11 02:24] VITALS: BP 134/70
[2020-03-11 04:00] VITALS: BP 103/60
--- NOTE | 2020-03-11 05:03 | NUR ---
PATIENT IS SITTING IN HIS WHEEL CHAIR. HIS IS IN THE ROOM. HE HAS HAD DILUADID TWICE SINCE HIS ADMISSION. HE COMPLAINS OF CHEST PAIN RADIATING TO HIS BACK. WE WANTS WATER BUT IS NPO. WE WILL CONTINUE TO MONITOR HIS CHEST PAIN AND TROPONINS.
--- NOTE | 2020-03-11 07:15 | NUR ---
RECEIVED PT IN BED EYES CLOSED RESP UNLABORED SKIN W/D C/O CHEST PAIN 04/18 WILL CONTINUE TO MONITOR
[2020-03-11 07:48] LABS: CKMB 18.2 U/L (0.0-3.6); CREATINE KINASE 133 UL (21-232)
[2020-03-11 07:53] LABS: TROPONIN-I 3.756 ng/mL (0.000-0.060)
[2020-03-11] MEDS ORDERED: PLAVIX75 MG PO (08:46)
--- NOTE | 2020-03-11 08:51 | NUR ---
DILCIA RAMOS WAS ATTEMPTING TO START A PIV IN THE LEFT HAND AND REQUESTED ASSISTANCE. I ENTERED THE ROOM AND ASSESSED THE PIV PLACEMENT. I ATTEMPTED TO REPOSITION THE IV THE PT BEGAN TO LOUDLY USE PROFANITY WHILE LOOKING AT THE LUNCH MENU SAYING PHRASES LIKE "GD" AND "FK". I TOOK MY HANDS OFF THE IV, ALLOWED DILCIA TO TAKE OVER AND WALKED OUT OF THE ROOM WITHOUT SPEAKING A WORD. THE PT WAS HOSTILE AND EXTREMELY RUDE WHILE I WAS SIMPLY ATTEMPTING TO HELP HIM.
[2020-03-11 09:26] VITALS: BP 118/61
[2020-03-11 12:00] VITALS: BP 115/60
[2020-03-11 12:20] VITALS: Ht 177.8 cm; Wt 87.4 kg
--- NOTE | 2020-03-11 13:52 | MORECARE ---
CASE MANAGEMENT DISCHARGE SUMMARY PATIENT: DU GARCIA UNIT: [id number] ADM DATE: 03/10/20 AGE: 64 : 59 SEX: M ROOM/BED: D.2118 AUTHOR: ADALBERTO RICHARD PHYSICIAN: REFERRING PHYSICIAN: MARIELA BERRY MD DATE OF SERVICE: 03/11/20 Discharge Plan Patient Name: DU GARCIA [facility] : 1955 Planned Disposition: Home Anticipated Discharge Date: Discharge Date: Expected LOS: 0 Initial Reviewer: [email or web address] Initial Review Date: 03/10/2020 Generated: 03/11/20 2:52 pm Comments DCP- Discharge Planning Updated by [email or web address]: Chen Johnson on 03/11/20 12:[address] M contacted Edrith, with [facility], to make aware of patient admission and that MD declared the patient is unstable to transfer. Patient Name: DU GARCIA Page 33350 at 1352 All edits/amendments must be made on the electronic document DICTATION DATE: 03/11/20 1352 RADIOLOGICAL EQUIPMENT SPECIALIST: CASIMIRO 03/11/20 1352 RPT#: [id number] DC DATE: STATUS: ADM IN [facility] [address] [place] [address] END OF REPORT
--- NOTE | 2020-03-11 14:02 | MORECARE ---
CASE MANAGEMENT DISCHARGE SUMMARY PATIENT: DU GARCIA UNIT: [id number] ADM DATE: 03/10/20 AGE: 64 : 59 SEX: M ROOM/BED: D.2118 AUTHOR: ADALBERTO RICHARD PHYSICIAN: REFERRING PHYSICIAN: MARIELA BERRY MD DATE OF SERVICE: 03/11/20 Discharge Plan Patient Name: DU GARCIA [facility] [facility] 1955 Planned Disposition: Home Anticipated Discharge Date: Discharge Date: Expected LOS: 0 Initial Reviewer: [email or web address] Initial Review Date: 03/10/2020 Generated: 03/11/20 3:01 pm Comments DCP- Discharge Planning Updated by [email or web address]: Chen Johnson on 03/11/20 12:[address] CM contacted Edrith, with [facility], to make aware of patient admission and that MD declared the patient is unstable to transfer. Last DP export: 03/11/20 12:53 pm Patient Name: DU GARCIA Page 01402 at 1402 All edits/amendments must be made on the electronic document DICTATION DATE: 03/11/20 140 FOOD ANALYST: CASIMIRO 03/11/20 140 RPT#: [id number] DC DATE: STATUS: ADM IN [facility] [address] [place] [address] END OF REPORT
--- NOTE | 2020-03-11 19:30 | NUR ---
PT OUT IN HALLWAY IN WHEELCHAIR SAYING HE WAS NOT GIVEN PAIN MEDS BY PREVIOUS NURSE. EXPLAINED TO PT THAT IT WAS TOO EARLY FOR DAY NURSE TO GIVE HIM ANY AT THE TIME HE HAD ASKED. ADMINISTERED PAIN MEDS DILAUDID 1MG SIVP WITH ZOFRAN 4MG SIVP AT THIS TIME, ONLY TO REALIZE THAT IT IS STILL EARLIER THAN HE SHOULD HAVE RECIEVED DOSE. PT ASKING NURSE TO "DOUBLE UP " HIS DOSE AND NURSE INSTRUCTED PT THAT HE IS ALREADY RECIEVING A HIGHER FREQUENCY THAN OTHERS USUALLY GET.
[2020-03-11 21:30] VITALS: BP 132/70
--- NOTE | 2020-03-11 22:30 | NUR ---
PT WITH LIGHT ON ASKING FOR HIS PAIN MED 1 HOUR EARLIER AND THEN 30 MINUTES EARLIER. TIME 2230 WRITTEN ON PATIENT'S BOARD AND HE HAD HIS LIGHT ON AT 2225 TO REMIND NURSE TO BRING IT TO HIM. MEDICATED WITH DILAUDID 1MG SIVP AT 2230. TIME FOR NEXT AVAILABLE REQUEST AT 0130 WRITTEN ON BOARD.
--- NOTE | 2020-03-12 01:30 | NUR ---
PT UP IN WHEELCHAIR IN HIS ROOM. C/O TEMP OF ROOM. FAN PROVIDED. C/O TIME FOR HIS PAIN MEDICATION. MEDICATED WITH DILAUDID 1MG AND ZOFRAN 4MG SIVP AND ENCOURAGED PT TO PLEASE GET IN BED AND TRY TO REST. CALL LIGHT IN REACH.
[2020-03-12 04:30] VITALS: BP 141/100
[2020-03-12 05:02] LABS: ALBUMIN 3.1 g/dL (3.4-5.0); BILIRUBIN - TOTAL 0.53 mg/dL (0.2-1.3); CALCIUM 8.5 mg/dL (8.5-10.1); CREATININE - SERUM 1.4 mg/dL (0.6-1.3); MAGNESIUM - SERUM 2.2 mg/dL (1.8-2.4); PROTEIN - SERUM 6.6 g/dL (6.4-8.2)
[2020-03-12 05:05] LABS: ANION GAP 6.4 mmol/L (8-16); POTASSIUM - SERUM 4.4 mmol/L (3.5-5.1)
--- NOTE | 2020-03-12 07:15 | NUR ---
RECEIVED PT SITTING IN W/C C/O LT ARM HURTING 06/18 EXPLAINED DILADID IS DUE AGAIN AT 0900 WILL BRING IT WHEN I CAN PT STATES UNDERSTANDING
[2020-03-12 08:31] LABS: BASOPHILS 0.3 % (0-2); HEMATOCRIT 42.2 % (42.0-54.0); HEMOGLOBIN 13.4 g/dL (13.5-17.5); IMMATURE GRANULOCYTES 0.1 % (0-5); LYMPHOCYTES 28.3 % (15-50); MCH 30.4 pg (26.0-34.0); MCHC 31.8 g/dL (31.0-37.0); MCV 95.7 fL (80.0-100.0); MEAN PLATELET VOLUME 12.1 fL (7.4-10.4); MONOCYTES 11.7 % (2-11); NEUTROPHILS 56.6 % (40-80); PLATELET COUNT 241 10x3/uL (130-400); RBC 4.41 10x6/uL (4.20-6.10); RDW 16.8 % (11.5-14.5); WBC 10.7 10x3/uL (4.8-10.8)
[2020-03-12 08:45] LABS: CHOL - HDL RATIO 4.8 ratio (2.3-4.9)
[2020-03-12 09:41] VITALS: BP 170/93
--- NOTE | 2020-03-12 10:49 | MORECARE ---
CASE MANAGEMENT DISCHARGE SUMMARY PATIENT: DU GARCIA UNIT: [id number] ADM DATE: 03/11/20 AGE: 64 : 59 SEX: M ROOM/BED: D.2112 AUTHOR: ADALBERTO RICHARD PHYSICIAN: REFERRING PHYSICIAN: MARIELA BERRY MD DATE OF SERVICE: 03/12/20 Discharge Plan Patient Name: DU GARCIA Facility: [facility]:[place] : 1955 Planned Disposition: Home Anticipated Discharge Date: Discharge Date: Expected LOS: 0 Initial Reviewer: [email or web address] Initial Review Date: 03/10/2020 Generated: 03/12/20 11:48 am Comments DCP- Discharge Planning Updated by [email or web address]: Kirsten Malin on 03/12/20 9:[address] CM received an order for assistance with discharge medications. CM looked up medications Dr. Hallman had requested. CM was able to find discount coupon for Effient/ Prasugrel 10mg daily 30 day supply for $14.99. CM spoke with patient's spouse and she said that they would be able to afford it. CM spoke with patient's nurse and passed along information that medication will either need to be called into [facility] or a script given to patient [facility] one for [facility] for [facility]. CM will continue to follow and assist as needed with discharge planning/ needs. DCP- Discharge Planning Updated by [email or web address]: Chen Johnson on 03/11/20 12:[address] CM contacted Edrith, with [facility], to make aware of patient admission and that MD declared the patient is unstable to transfer. Last DP export: 03/11/20 1:02 pm Patient Name: DU GARCIA Page 36354 at 1049 All edits/amendments must be made on the electronic document DICTATION DATE: 03/12/208 INVESTOR RELATIONS MANAGER: CASIMIRO 03/12/20 1048 RPT#: [id number] DC DATE: STATUS: ADM IN [facility] [address] [place] [address] END OF REPORT
[2020-03-12] MEDS ORDERED: FLOMAX0.4 MG PO (13:38)
[2020-03-12] MEDS ORDERED: ZPAK PO (13:43)
[2020-03-12] MEDS ORDERED: EFFIENT10 MG PO (13:50)
[2020-03-12] MEDS ORDERED: COUMADIN5 MG PO (14:12)
[2020-03-12] MEDS ORDERED: BAYER CHEWABLE81 MG PO (14:19)
--- NOTE | 2020-03-12 14:20 | NUR ---
CALLED DR ECHOLS REGARDING ASPIRIN RX. PER DR ECHOLS REC PT ALSO TAKE ASA 81 MG DAILY AT D/C.
--- NOTE | 2020-03-12 15:52 | NUR ---
REVIEWED DISCHARGE INSTRUCTIONS WITH PT STATES UNDERSTANDING COPY GIVEN DCD SALINE LOCK TO LFA WITH IV CATHETER INTACT SITE FREE OF REDNESS OR EDEMA PT DISCHARGED HOME LEFT UNIT IN STABLE CONDITION VIA W/C WITH ALL PERSONAL BELONGINGS
--- NOTE | 2020-03-12 16:09 | MORECARE ---
CASE MANAGEMENT DISCHARGE SUMMARY PATIENT: DU GARCIA UNIT: [id number] ADM DATE: 03/11/20 AGE: 64 : [birth year] SEX: M ROOM/BED: D.2112 AUTHOR: ADALBERTO RICHARD PHYSICIAN: REFERRING PHYSICIAN: MARIELA BERRY MD DATE OF SERVICE: 03/12/20 Discharge Plan Patient Name: DU GARCIA Facility: [facility]:[place] : 1955 Planned Disposition: Home Anticipated Discharge Date: Discharge Date: 03/12/2020 Expected LOS: 0 Initial Reviewer: [email or web address] Initial Review Date: 03/10/2020 Generated: 03/12/20 5:08 pm Comments DCP- Discharge Planning Updated by [email or web address]: Kirsten Malin on 03/12/20 9:[address] CM received an order for assistance with discharge medications. CM looked up medications Dr. Hallman had requested. CM was able to find discount coupon for Effient/ Prasugrel 10mg daily 30 day supply for $14.99. CM spoke with patient's spouse and she said that they would be able to afford it. CM spoke with patient's nurse and passed along information that medication will either need to be called into [facility] or a script given to patient [facility] one for [facility] for [facility]. CM will continue to follow and assist as needed with discharge planning/ needs. DCP- Discharge Planning Updated by [email or web address]: Chen Johnson on 03/11/20 12:[address] CM contacted Edrith, with [facility], to make aware of patient admission and that MD declared the patient is unstable to transfer. Last DP export: 03/12/20 9:49 am Patient Name: DU GARCIA Page [id number] at 1609 All edits/amendments must be made on the electronic document DICTATION DATE: 03/12/201607 VP OF GLOBAL MARKETING: CASIMIRO 03/12/20 1608 RPT#: [id number] DC DATE:03/12/20 STATUS: DIS IN [facility] [address] [place] [address] END OF REPORT
--- NOTE | 2020-03-14 11:22 | OP ---
PATIENT NAME: DU GARCIA MEDICAL RECORD: [id number] :[birth year] LOCATION:D.M2 D.2118 ADMISSION DATE:03/11/20 SURGEON: JO-ANN ECHOLS MD DATE OF OPERATION: 03/12/2020 PROCEDURE: Left heart cath, selective coronary angiography, right femoral artery approach. CATHETERS: A 5-Venezuelan sheath, 5/4 left and right Monique, 5/4 pig. The procedure was well tolerated. The patient returned to roberts, sheath removed. ExoSeal device placed. FINDINGS: Left ventriculography in 30-degree GODDARD view shows severe global hypokinesis. Overall, LV function reduced to 20%. CORONARY ANATOMY: LEFT MAIN: Left main is free of disease. LAD: Has minimal luminal irregularities, but no flow obstructive stenosis. CIRCUMFLEX: Small vessel, free of disease. RIGHT CORONARY ARTERY: Large, dominant right This shows previously placed stents in the PDA and PLV, ruptured plaque proximally of 80% with some continued thrombus formation. 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 PLAN: Intervention of this momentarily. DESCRIPTION: A long 6-Venezuelan sheath was placed. A hockey stick guiding catheter provided excellent guide catheter support followed by 300 cm Whisper wire. This was placed across the lesion right down this portion of the vessel. Stent deployed was a 4.0 x 15 mm Integrity nondrug eluting stent up to 14 atmospheres. Final angiography shows excellent resolution of 80% stenosis, no significant residual. No evidence of residual thrombus. Sheath was closed with ExoSeal device. Effient was again loaded in the lab. We will ask nurse case manager for assistance until we can get samples of Brilinta or Effient for patient or conversely be able to change this over for us hopefully. Further recommendations based on the above. TRANSINT:[id number] Voice Confirmation ID: [id number] DOCUMENT ID: [id number] JO-ANN ECHOLS MD at 1122 CC: [id number] DICTATION DATE: 03/12/20 0952 FLOOR FINISHER HELPER: 03/12/20 1130 DIS IN 03/12/20 [address] [place] [address]
== END 2020-03-12 15:52 | disposition home or self-care (01) | DRG 248 ==
LOC: D.ER 20:11 → D.M2 21:19 → OBSVTIME 21:19 → D.M2 03-11 20:48
PROVIDERS: Emergency Medicine; Family Medicine; Internal Medicine Interventional Cardiology; ADMIT Family Medicine; ATTEND Family Medicine
PROC: B2111ZZ Fluoroscopy of Multiple Coronary Arteries using Low Osmolar Contrast (ICD-10-PCS; 2020-03-12)
PROC: B2151ZZ Fluoroscopy of Left Heart using Low Osmolar Contrast (ICD-10-PCS; 2020-03-12)
PROC: 02703DZ Dilation of Coronary Artery, One Artery with Intraluminal Device, Percutaneous Approach (ICD-10-PCS; principal; 2020-03-12 08:45)
PROC: 4A023N7 Measurement of Cardiac Sampling and Pressure, Left Heart, Percutaneous Approach (ICD-10-PCS; 2020-03-12 08:45)
DX: I25.110 Atherosclerotic heart disease of native coronary artery with unstable angina pectoris (principal); J18.9 Pneumonia, unspecified organism; I21.A1 Myocardial infarction type 2; N17.9 Acute kidney failure, unspecified; J44.0 Chronic obstructive pulmonary disease with (acute) lower respiratory infection; I50.20 Unspecified systolic (congestive) heart failure; F17.203 Nicotine dependence unspecified, with withdrawal; J98.11 Atelectasis; I25.5 Ischemic cardiomyopathy; I11.0 Hypertensive heart disease with heart failure; I50.9 Heart failure, unspecified; E78.5 Hyperlipidemia, unspecified; F32.9 Major depressive disorder, single episode, unspecified; Z86.718 Personal history of other venous thrombosis and embolism; Z86.73 Personal history of transient ischemic attack (TIA), and cerebral infarction without residual deficits; Z79.01 Long term (current) use of anticoagulants

== ENCOUNTER 2020-05-29 18:27 | Observation (INO) | payer OTHER ==
[~2020-05-29] VITALS: Ht 177.8 cm; Wt 81.8 kg
--- NOTE | ~2020-05-29 | HEMODYNAMI ---
PATIENT:DU GARCIA MEDICAL RECORD: [id number] : 59 LOCATION:[facility] [place]# [id number] ADMISSION DATE: 05/29/20 Generatedon:05/30/202016:51 Patient name: DU GARCIA Patient #: [id number] : 1955 Date of study: 05/30/2020 Page: Of Hemodynamic Procedure Report Patient Data Patient Demographics Procedure consent was obtained First Name: DU Gender: Male Last Name: JOSE : 1955 Patient #: [id number] Age: 64 year(s) Race: SSN: [id number] Additional ID: [id number] Contact details [address]: [address] [place] [address] State: [place] City: [place] Zip code: [address] Past Medical History Allergies Allergen Reaction Date Comments Reported Other allergy 08/05/2019 PCN, EGGS, MORPHINE Other allergy 03/12/2020 EGGS, PCN/MORPHINE Admission Admission Data Admission Date: 05/29/2020 Admission Time: 21:52 Arrival Date: 05/29/2020 Arrival Time: 21:52 Admit Source: Other Insurance Payor: Private Room #: D.E10 health insurance [facility] #: [id number] Height (in.): 69.69 BSA: 1.98 (m2) Height (cm.): 177 BMI: 25.85 (kg/m2) Weight (lbs.): 178.58 Weight (kg.): 81 Lab Results Lab Result Date: 05/30/2020 Lab Result Time: 0:00 Biochemistry Name Units Result Min Max BUN mg/dl 15 --(--*-)-- 7 18 Creatinine mg/dl 1.2 --(---*)-- 0.6 1.3 eGFR ml/min 64.86116 *-(----)-- 90 120 NONAFRICAN CBC Name Units Result Min Max Hemoglobin g/dl 12.2 *-(----)-- 13.5 17.5 Procedure Procedure Types Cath Procedure Diagnostic Procedure [facility] w/Coronaries Sedation Charges Moderate Sedation up to 45 minutes PCI Procedure PTCA PTCA Initial Hemochron ACT Test Procedure Description Procedure Date Procedure Date: 05/30/2020 Procedure Start Time: 15:50 Procedure End Time: 16:39 Procedure Staff Name Function Alex Hernandez MD Performing Physician Nahomy Kim RT Monitor Shanita Villalobos RT Scrub Miracle Mai RN Nurse Cyndi Morales RT Monitor Indication Chest pain Procedure Data Cath Procedure Fluoroscopy Diagnostic fluoroscopy Total fluoroscopy Time: time: 9.53 min 9.53 min Diagnostic fluoroscopy Total fluoroscopy dose: dose: 1055 mGy 1055 mGy Contrast Material Contrast Material Type Amount (ml) Isovue 300 83 Entry Location Entry Primary Successful Side Size Upsize Upsize Entry Closure Rae ccessful Closure Location (Fr) 1 (Fr) 2 (Fr) Remarks Device Remarks Femoral Left 5 Fr Manual vein Compression Femoral Left 5 Fr Exoseal artery Estimated blood loss: 10 ml Diagnostic catheters Device Type Used For End Catheter Placement MULTIPACK JL 4.0 5Fr Procedure catheter MULTIPACK 3DRC 5Fr Procedure catheter MULTIPACK Pigtail 5 Fr Procedure catheter Procedure Complications No complications Procedure Medications Medication Administration Route Dosage Lidocaine 2% added to field 20 Heparin Flush Bag added to field 2 bags (1000units/500ml NS) 0.9% NaCl I.V. 100 ml/hr Oxygen etCO2 Nasal cannula 2 l/min Versed I.V. 1 mg Fentanyl I.V. 50 mcg Versed I.V. 1 mg Fentanyl I.V. 50 mcg Versed I.V. 1 mg Fentanyl I.V. 50 mcg Versed I.V. 1 mg Fentanyl I.V. 50 mcg Heparin Bolus I.V. 8000 units Hemodynamics Rest BSA: 1.98 (m2) HGB: 12.2 (g/dl) O2 Consumption: Estimated: 217.34 (ml/min) O2 Co nsumption indexed: Estimated:109.77 (ml/min/m) Heart Rate: 51 (bpm) Pressure Samples Time Site Value (mmHg) Purpose Heart Use Rate(bpm) 16:19 LV 128/6,16 Snapshot 75 Gradients Valve Time Site Site Mean SEP/DFP Peak To Heart Use 1 2 (mmHg) (sec/min) Peak Rate (mmHg) (bpm) Aortic 16:20 LV AO 75 Snapshots Pre Cath Intra NCS Post Cath Vital Signs Time Heart Resp SPO2 etCO2 NIBP (mmHg) Rhythm Pain Sedation Rate (ipm) (%) (mmHg) Status Level (bpm) 15:28:22 64 13 91 35.4 108/58(83) NSR 0 (11) 10(A) , No pain 15:32:35 62 16 93 34.6 99/55(82) NSR 0 (11) 10(A) , No pain 15:36:51 63 20 93 38.4 100/56(71) NSR 0 (11) 10(A) , No pain 15:41:03 62 18 94 38.4 101/58(75) NSR 0 (11) 10(A) , No pain 15:45:15 66 19 95 36.9 93/54(81) NSR 0 (11) 10(A) , No pain 15:49:31 62 18 94 30.1 91/49(86) NSR 0 (11) 9(A) , No pain 15:53:43 66 18 93 39.1 88/58(80) NSR 0 (11) 9(A) , No pain 15:57:55 67 19 93 39.1 96/50(84) NSR 0 (11) 9(A) , No pain 16:02:09 69 15 93 39.1 97/56(76) NSR 0 (11) 9(A) , No pain 16:06:21 68 16 93 39.1 99/56(72) NSR 0 (11) 9(A) , No pain 16:10:37 77 18 93 39.9 102/55(74) NSR 0 (11) 9(A) , No pain 16:14:53 64 15 94 39.8 102/59(79) NSR 0 (11) 9(A) , No pain 16:19:05 76 16 95 39.8 111/68(86) NSR 0 (11) 9(A) , No pain 16:23:17 75 14 96 39.9 112/70(102) NSR 0 (11) 9(A) , No pain 16:27:35 74 13 96 39.9 118/63(96) NSR 0 (11) 9(A) , No pain 16:31:51 74 13 96 38.3 135/78(117) NSR 0 (11) 9(A) , No pain 16:37:23 63 14 96 34.6 144/77(116) NSR 0 (11) 10(A) , No pain Medications Time Medication Route Dose Verified Delivered Reason Notes Effectiveness by by 15:32:05 Lidocaine 2% added 20ml Alex Alex for local to vial Kofi Hernandez MD anesthetic field 15:32:12 Heparin Flush added 2 Alex Alex used for Bag to bags Kofi Hernandez MD procedure (1000units/500ml field NS) 15:32:21 0.9% NaCl I.V. 100 Alex Buffie Per physician ml/hr Kofi Mai RN 15:32:41 Oxygen etCO2 2 Alex Buffie used for Nasal l/min Kofi Mai RN procedure cannula 15:43:11 Versed I.V. 1 mg Alex Buffie for sedation Kofi Mai RN 15:43:17 Fentanyl I.V. 50 Alex Buffie for sedation mcg Kofi Mai RN 15:48:47 Versed I.V. 1 mg Alex Buffie for sedation Kofi Mai RN 15:48:51 Fentanyl I.V. 50 Alex Buffie for sedation mcg Kofi Mai RN 15:53:55 Versed I.V. 1 mg Alex Buffie for sedation Kofi Mai RN 15:53:59 Fentanyl I.V. 50 Alex Buffie for sedation mcg Kofi Mai RN 16:10:06 Versed I.V. 1 mg Alex Buffie for sedation Kofi Mai RN 16:10:10 Fentanyl I.V. 50 Alex Buffie for sedation mcg Kofi Mai RN 16:24:57 Heparin Bolus I.V. 8000 Alex Buffie for verif ied units Kofi Mai RN anticoagulation with dr hernandez Procedure Log Time Note 15:06:30 Diagnostic Cath Status : Urgent 15:07:39 Arrival Date: 05/29/2020 9:52:00 PM 15:07:54 Admit Source: Other 15:07:57 Insurance Payor : Private health insurance 15:08:03 Patient Height : 69.69 inches 15:08:06 Patient Weight : 178.58 lbs 15:08:44 Lab Result : Creatinine 1.2 mg/dl 15:08:44 Lab Result : BUN 15 mg/dl : Lab Result : eGFR NONAFRICAN 64.00794 ml/min : Lab Result : Hemoglobin 12.2 g/dl 15:: Procedure Status Urgent Heart Cath (IP). 15:: Miracle Mai RN sent for patient. Start room use. 15:: Time tracking: Regular hours (M-F 7:00 - 5:00) 15::14 Plan of Care:Hemodynamics will remain stable., Cardiac rhythm will remain stable., Comfort level will be maintained., Respiratory function will remain adequate., Patient/ family verbilizes understanding of procedure., Procedure tolerated without complication., Recovers from procedure without complications.. 15:14:18 Patient received from ED to CCL 1 Alert and oriented. Tansferred to table in Supine position. 15:14:21 Signed procedure consent form obtained from patient. 15:14:22 Warm blankets applied, and willard hugger turned on for patient comfort. 15:14:22 Correct patient and procedure confirmed by team. 15:14:23 ECG and BP/O2 sat monitors applied to patient. 15:27:04 Baseline sample Acquired. 15:27:04 Vital chart was started 15:27:12 Rhythm: sinus bradycardia 15:27:13 Full Disclosure recording started 15:27:17 H&P Date Dictated: 05/30/2020 New H&P dictated by physician.. 15:27:18 Pre-procedure instructions explained to patient. 15:27:19 Pre-op teaching completed and patient verbalized understanding. 15:27:21 Family in patients room. 15:27:22 Patient NPO since Midnight. 15:27:25 Is the patient allergic to Iodine/contrast media? No. 15:27:28 Was the patient premedicated? Yes 15:27:32 Is patient on blood thinner?Yes 15:27:36 ACC The patient was administered the following blood thiners within the last 24 hours: ACCEffient 15:27:38 Patient diabetic? No. 15:27:41 Previous problem with sedation/anesthesia? No ? 15:27:46 Snore? No 15:27:47 Sleep apnea? No 15:27:48 Deviated septum? No 15:27:49 Opens mouth fully? Yes 15:27:50 Sticks out tongue? Yes 15:27:53 Airway obstruction? Yes copd 15:27:56 Dentures? No ? 15:27:59 Pre procedure: right dorsailis pedis pulse 2+ Normal; easily identifiable; not easily obliterated 15:28:01 Pre procedure: left dorsailis pedis pulse 2+ Normal; easily identifiable; not easily obliterated 15:28:04 Patient pain scale 0/10 ?. 15:28:14 IV patent on arrival in right forearm with 0.9% NaCl at [facility]. 15:28:17 Lab results completed and on chart. 15:28:29 Left groin area was prepped with chlora-prep and draped in sterile fashion 15::30 Alarms reviewed by R. N. 15::30 Sharps counted by scrub and verified by R.N. 15:28:31 Physician arrived 15::32 --------ALL STOP TIME OUT------ 15:28:33 Final Timeout: patient, procedure, and site verified with staff and physician. All members of the team are in agreement. 15:28:36 Right groin site verified by team. 15:28:41 Fire Safety Assessment: A--An alcohol-based skin anteseptic being used preoperatively., C--Open oxygen or nitrous oxide is being used., D--An ESU, laser, or fiber-optic light is being used. 15:28:44 Physical assessment completed. ASA score P 2 - A patient with mild systemic disease as per Alex Hernandez MD. 15:29:00 2) 60-89 Mildly reduced kidney function, and other findings (as for stage 1) point to kidney disease. 15:29:19 Maximum allowable contrast dose (3.7 X eGFR X 0.75)180 ml. 15:30:32 Sedation plan: IV Moderate Sedation Medication:Versed, Fentanyl 15:30:37 Use device set Femoral Dx 15:30:38 ACIST Syringe (33230) opened to sterile field. 15:30:39 Bag Decanter () opened to sterile field. 15:30:39 Medline Cath Pack ([id number]) opened to sterile field. 15:30:40 ACIST Hand Control (46016) opened to sterile field. 15:30:41 ACIST Manifold (50424) opened to sterile field. 15:30:42 DIAGNOSTIC Multipack 5Fr catheter set (LW3342) opened to sterile field. 15:30:42 Tegaderm 4 x 4 (1626W) opened to sterile field. 15:30:43 SHEATH 5FR Wheeling (XKE646) opened to sterile field. 15:30:44 EMERALD Guide Wire (192-837) opened to sterile field. 15:32:05 Lidocaine 2% 20ml vial added to field was administered by Alex Hernandez MD; for local anesthetic; Verbal order read back and verified. 15:32:12 Heparin Flush Bag (1000units/500ml NS) 2 bags added to field was administered by Alex Hernandez MD; used for procedure; Verbal order read back and verified. 15:32:21 0.9% NaCl 100 ml/hr I.V. was administered by Miracle Mai RN; Per physician; Verbal order read back and verified. 15:32:41 Oxygen 2 l/min etCO2 Nasal cannula was administered by Miracle Mai RN; used for procedure; Verbal order read back and verified. 15:36:15 Indication : Chest pain 15:43:11 Versed 1 mg I.V. was administered by Miracle Mai RN; for sedation; Verbal order read back and verified. 15:43:17 Fentanyl 50 mcg I.V. was administered by Miracle Mai RN; for sedation; Verbal order read back and verified. 15:47:14 Procedure started. 15:48:47 Versed 1 mg I.V. was administered by Miracle Mai RN; for sedation; Verbal order read back and verified. 15:48:51 Fentanyl 50 mcg I.V. was administered by Miracle Mai RN; for sedation; Verbal order read back and verified. 15:50:07 Local anesthetic to left femerol artery with Lidocaine 2% by Alex Hernandez MD.INITIAL ACCESS ONLY 15:52:47 MICROPUNCTURE 4FR Cook ([id number]) opened to sterile field. 15:53:55 Versed 1 mg I.V. was administered by Miracle Mai RN; for sedation; Verbal order read back and verified. 15:53:59 Fentanyl 50 mcg I.V. was administered by Miracle Mai RN; for sedation; Verbal order read back and verified. 16:04:10 Access obtained with 4Fr micropunture. 16:04:18 A 5 Fr sheath was inserted into the Left Femoral vein 16:09:05 Local anesthetic to right femoral artery with Lidocaine 2% by Alex Hernandez MD.ADDITIONAL ACCESS 16:09:08 Access obtained with 4Fr micropunture. 16:10:06 Versed 1 mg I.V. was administered by Miracle Mai RN; for sedation; Verbal order read back and verified. 16:10:10 Fentanyl 50 mcg I.V. was administered by Miracle Mai RN; for sedation; Verbal order read back and verified. 16:10:32 A 5 Fr sheath was inserted into the Left Femoral artery 16:12:53 A MULTIPACK JL 4.0 5Fr catheter was advanced over the wire and used for Procedure. 16:12:56 LCA angiography performed. 16:17:31 Catheter removed. 16:17:42 A MULTIPACK 3DRC 5Fr catheter was advanced over the wire and used for Procedure. 16:18:01 RCA angiography performed. 16:19:10 Catheter removed. 16:19:18 A MULTIPACK Pigtail 5 Fr catheter was advanced over the wire and used for Procedure. 16:19:31 LV gram done using GODDARD 16:20:31 EF : 25 % 16:21:42 GUIDE 5FR EBU 3.5 catheter ([id number]) opened to sterile field. 16:21:42 BMW 300cm Straight Rincon 2 wire ([id number]) opened to sterile field. 16:21:43 INFLATOR Merit BasixCompak (OF9726) opened to sterile field. 16:21:43 TUBING High Pressure Extension Tubing (Kofi) ([id number]) opened to sterile field. 16:21:52 Catheter removed. 16:22:00 Proceeding to intervention. 16:22:14 5 Fr ebu3.5 guide catheter was inserted over the wire 16:22:16 BMW wire advanced. 16:22:18 Wire advanced across lesion. 16:24:57 Heparin Bolus 8000 units I.V. was administered by Miracle Mai RN; for anticoagulation; verified with dr hernandez Verbal order read back and verified. 16:28:36 Inflate balloon Inflation number: 1 A EUPHORA 2.0 x 15 Balloon ([id number]) was prepped and advanced across the Mid LAD 80, then inflated to 14 JEREMY for 0:33 (min:sec) . 16:31:44 EXOSEAL 5Fr (EX500) opened to sterile field. 16:31:47 Guide catheter removed. 16:32:33 Sheath removed intact; hemostasis achieved with Exoseal to the Left Femoral artery. 16:33:03 Sheath removed intact; hemostasis achieved with Manual Compression to the Left Femoral vein. 16:33:06 Procedure ended.(Physican Out) 16:35:31 Fluoroscopy time 09.53 minutes. 16:35:38 Fluoroscopy dose: 1055 mGy 16:35:38 Flurop Dose total: 1055 16:35:43 Dose Area Product 83224 mGy/cm. 16:35:50 Contrast amount:Isovue 300 83ml. 16:36:10 Maximum allowable dose exceeded? No. 16:36:11 Sharps counted by scrub and verified by R.N. 16:36:21 Insertion/operative site no bleeding no hematoma. 16:36:26 Post-op/insertion site Left Femoral artery dressed using a 4 x 4 and Tegaderm. 16:36:28 Post Procedure Pulses reassessed and unchanged 16:36:32 Post-procedure physical assessment completed. ASA score P 3 - A patient with severe systemic disease as per Alex Hernandez MD. 16:36:40 Post procedure rhythm: unchanged. 16:36:43 Estimated blood loss: 10 ml 16:36:45 Post procedure instruction explained to patient.Patient verbalizes understanding. 16:38:56 Procedure type changed to Cath procedure, Diagnostic procedure, LHC, C w/Coronaries, Sedation Charges, Moderate Sedation up to 45 minutes, PCI procedure, PTCA, PTCA Initial, Hemochron ACT Test 16:39:02 Procedure and supply charges have been captured, reviewed, submitted and are correct. 16:39:35 Procedure Complication : No complications 16:39:38 Vital chart was stopped 16:39:42 [facility] Findings: MVD- PCI performed (see procedure note) 16:39:45 See physician's report for complete and final results. 16:39:47 Report given to [facility]. 16:39:51 Patient transfered to [facility] with Bed. 16:39:54 Procedure ended. 16:39:54 Full Disclosure recording stopped 16:40:00 End room use (Document Last) 16:41:21 End room use (Document Last) 16:42:09 ACT drawn and resulted at out of range high seconds. (normal therapeutic range 180-240 seconds). 16:42:17 End room use (Document Last) Intervention Summary Intervention Notes Time ActionType Lesion and Equipment Action# Pressure Duration Attributes Used 16:28:36 Inflate Mid LAD EUPHORA 1 14 00:33 balloon 2.0 x 15 Balloon ([id number]) Device Usage Item Name Manufacture Quantity Catalog Hospital Part Current Minimal Lot# / Number Charge Number Stock Stock Serial# Code ACIST Syringe Acist 1 88463 325534 238043 293070 20 (48232) Medical Systems Inc Bag Decanter Microtek 1 2001S 133785 07740 947984 5 (2001S) Medical Inc. Medline Cath Medline 1 [id number] 279373 96823 565683 5 Pack ([id number]) ACIST Hand Acist 1 31563 596948 703712 680245 5 Control Medical (24552) Systems Inc ACIST Acist 1 65870 106819 651068 336190 5 Manifold Medical (11111) Systems Inc DIAGNOSTIC Cardinal 1 SS8477 915220 80172 487920 30 Multipack 5Fr Health catheter set (MT9799) Tegaderm 4 x 3M 1 1626W 722038 745662 543609 5 4 (1626W) SHEATH 5FR Terumo 1 NJW377 253320 914328 622725 5 Wheeling (UNX937) EMERALD Guide Cardinal 1 502-455 281169 244291 602645 5 Wire Health (502-455) MICROPUNCTURE Cook Medical 1 R86049 735210 797213 901230 5 4FR Cook (F05473) MULTIPACK JL Cardinal 1 420291 5 4.0 5Fr Health catheter MULTIPACK Cardinal 1 408630 5 3DRC 5Fr Health catheter MULTIPACK Cardinal 1 891480 5 Pigtail 5 Fr Health catheter GUIDE 5FR EBU Medtronic 1 [id number] 178201 083469 180766 1 3.5 catheter (SL0LWY14) BMW 300cm Dent 1 1716042 870801 048447 796293 5 Straight Vascular Rincon 2 wire (4390510) INFLATOR Merit 1 DE3580 134596 542539 383971 15 Merit Medical BasixCompak (BJ7335) TUBING High Merit 1 LV8431C 567963 37896 000929 10 Pressure Medical Extension Tubing (Kofi) (JK1951B) EUPHORA 2.0 x Medtronic 1 [id number] 204174 017871 770343 5 [id number] 15 Balloon ([id number]) EXOSEAL 5Fr Cardinal 1 EX500 230227 482468 710587 10 (EX500) Health Signature Audit [place] Stage Time Signature Unsigned Intra-Procedure 05/30/2020 Nahomy Kim 4:41:21 PM RT(R) Intra-Procedure 05/30/2020 Miracle Mai RN 4:42:17 PM Intra-Procedure 05/30/2020 Alex Hernandez MD 4:51:15 PM [facility] [address] [facility] [address]
[~2020-05-29 18:27] MED LIST changes: +BAYER CHEWABLE81 MG PO; +WARFARIN SODIUM5 MG PO; +ZPAK PO
[2020-05-29 18:36] VITALS: BP 116/59
[2020-05-29 18:49] LABS: BASOPHILS 0.2 % (0-2); EOSINOPHILS 2.3 % (0-7); HEMATOCRIT 37.5 % (42.0-54.0); HEMOGLOBIN 12.4 g/dL (13.5-17.5); IMMATURE GRANULOCYTES 0.2 % (0-5); LYMPHOCYTES 25.1 % (15-50); MCH 30.5 pg (26.0-34.0); MCHC 33.1 g/dL (31.0-37.0); MCV 92.1 fL (80.0-100.0); MEAN PLATELET VOLUME 10.5 fL (7.4-10.4); MONOCYTES 7.2 % (2-11); PLATELET COUNT 222 10x3/uL (130-400); RBC 4.07 10x6/uL (4.20-6.10); RDW 17.8 % (11.5-14.5); WBC 10.4 10x3/uL (4.8-10.8)
[2020-05-29 19:03] LABS: APTT 38.2 SECONDS (22.8-39.4); INR 1.65 (0.85-1.17); PROTIME 19.3 SECONDS (11.6-15.0)
[2020-05-29 19:07] LABS: CALC OSMOLALITY 269 mosm/kg (275-300); CALCIUM 8.5 mg/dL (8.5-10.1); CARBON DIOXIDE 25.9 mmol/L (21.0-32.0); CHLORIDE - SERUM 105 mmol/L (98-107); CREATININE - SERUM 1.4 mg/dL (0.6-1.3); GLUCOSE 143 mg/dL (74-106); POTASSIUM - SERUM 3.3 mmol/L (3.5-5.1); SODIUM 133 mmol/L (136-145); UREA NITROGEN 18 mg/dL (7-18); eGFR NON AFRICAN AMERICAN 54 mL/min (90-120)
[2020-05-29 19:24] LABS: ALBUMIN 2.8 g/dL (3.4-5.0); ALKALINE PHOSPHATASE 138 U/L (30-120); ALT (SGPT) 26 U/L (10-68); BILIRUBIN - TOTAL 0.26 mg/dL (0.2-1.3); CKMB 1.4 U/L (0.0-3.6); CREATINE KINASE 47 UL (21-232); MAGNESIUM - SERUM 2.1 mg/dL (1.8-2.4); PROTEIN - SERUM 6.7 g/dL (6.4-8.2); TROPONIN-I < 0.017 ng/mL (0.000-0.060)
[2020-05-29 21:15] VITALS: BP 106/62
[2020-05-29 22:52] LABS: CKMB 3.6 U/L (0.0-3.6); CREATINE KINASE 56 UL (21-232)
[2020-05-29 22:53] LABS: TROPONIN-I 0.779 ng/mL (0.000-0.060)
[2020-05-30] VITALS (10 sets, daily range): BP systolic 67–161; BP diastolic 48–82; Ht 177.8 cm; Wt 81.8 kg
[2020-05-30 05:03] LABS: BASOPHILS 0.3 % (0-2); EOSINOPHILS 3.4 % (0-7); HEMATOCRIT 37.5 % (42.0-54.0); HEMOGLOBIN 12.2 g/dL (13.5-17.5); IMMATURE GRANULOCYTES 0.3 % (0-5); LYMPHOCYTES 35.8 % (15-50); MCH 30.3 pg (26.0-34.0); MCHC 32.5 g/dL (31.0-37.0); MCV 93.3 fL (80.0-100.0); MEAN PLATELET VOLUME 11.2 fL (7.4-10.4); MONOCYTES 10.7 % (2-11); NEUTROPHILS 49.5 % (40-80); PLATELET COUNT 218 10x3/uL (130-400); RBC 4.02 10x6/uL (4.20-6.10); RDW 17.8 % (11.5-14.5); WBC 9.5 10x3/uL (4.8-10.8)
[2020-05-30 05:32] LABS: ALBUMIN 2.8 g/dL (3.4-5.0); ALKALINE PHOSPHATASE 130 U/L (30-120); BILIRUBIN - TOTAL 0.42 mg/dL (0.2-1.3); CALCIUM 8.3 mg/dL (8.5-10.1); CARBON DIOXIDE 24.4 mmol/L (21.0-32.0); CHLORIDE - SERUM 108 mmol/L (98-107); CKMB 4.1 U/L (0.0-3.6); CREATINE KINASE 69 UL (21-232); CREATININE - SERUM 1.2 mg/dL (0.6-1.3); PRO BNP 1034 pg/mL (0-125); PROTEIN - SERUM 6.7 g/dL (6.4-8.2); SODIUM 137 mmol/L (136-145); UREA NITROGEN 15 mg/dL (7-18); eGFR NON AFRICAN AMERICAN 65 mL/min (90-120)
[2020-05-30 05:44] LABS: ALT (SGPT) 19 U/L (10-68); CALC OSMOLALITY 273 mosm/kg (275-300); GLUCOSE 82 mg/dL (74-106); POTASSIUM - SERUM 4.1 mmol/L (3.5-5.1); TROPONIN-I 1.168 ng/mL (0.000-0.060)
--- NOTE | 2020-05-30 06:17 | NUR ---
PT GIVEN WARM BLANKET
--- NOTE | 2020-05-30 07:00 | NUR ---
REPORT GIVEN TO YONATAN RAMOS
[2020-05-30 09:01] LABS: CHOL - HDL RATIO 5.6 ratio (2.3-4.9); LDL-HDL RATIO 3.7 ratio (1.5-3.5)
[2020-05-30 11:16] LABS: CKMB 3.6 U/L (0.0-3.6); CREATINE KINASE 60 UL (21-232)
[2020-05-30 11:18] LABS: TROPONIN-I 0.919 ng/mL (0.000-0.060)
--- NOTE | 2020-05-30 13:23 | NUR ---
PT STATES "I'VE BEEN HERE FOR TWENTY HOURS NOW, I HAVE SEEN PEOPLE COME AND GO FROM THIS DEPARTMENT AND I'M STILL STUCK IN THIS ROOM, COLD SHIT AND IF MY GETS HERE BEFORE THEY GET HERE TO TAKE ME TO THE MILL BEAM FITTER THEN I AM LEAVING. I DON'T GIVE A SHIT ANYMORE." WILL NOTIFY MD OF PATIENT COMMENT. STATES "AND I REFUSE TO SIGN AN AMA FORM. I DON'T HAVE TO DO ANYTHING EXCEPT FOR AND PAY TAXES."
--- NOTE | 2020-05-30 13:58 | NUR ---
Pt's at bedside.
--- NOTE | 2020-05-30 14:20 | NUR ---
PT CHANGING INTO GOWN AT THIS TIME.
[2020-05-30] MEDS ORDERED: WARFARIN SODIUM5 MG PO (17:31)
[2020-05-31] VITALS: BP 132/74
--- NOTE | 2020-05-31 03:14 | NUR ---
PT A/O X4 RR EVEN AND UNLABORED. VITALS STABLE. PT L. GROIN CATH SITE C/D/I. TENDERNESS BELOW INCISION HAS IMPROVED. SMALL AREA OF HARDNESS BELOW SITE THAT HAS NOT EXPANDED. NO S/S OF DISTRESS AT THIS TIME. PT DENIES ANY PAIN OR FIRTHER NEEDS. BED LOW CALL LIGHT WITHIN REACH. WILL CONTINUE TO MONITOR.
--- NOTE | 2020-05-31 04:59 | NUR ---
I have reviewed this patient and I concur with the Shift Assessment completed by the Licensed Practical Nurse today this shift.
[2020-05-31 06:59] VITALS: BP 138/79
--- NOTE | 2020-05-31 08:00 | NUR ---
PT LAYING SUPINE, STATES CHRONIC PAIN IN SHOULDER 04/18. REQUESTS DILAUDED. RECIEVED PER ORDER. CALL LIGHT WITHIN REACH. DENIES FURTHER NEEDS OR PAIN AT THIS TIME. CALL LIGHT WITHIN REACH. BED IN LOWEST POSITION. WILL CONTINUE TO MONITOR.
--- NOTE | 2020-05-31 12:18 | NUR ---
D/C INSTRUCTIONS REVIEWED WITH PT. VERBALIZED UNDERSTANDING. IV D/C WITH CATHETER TIP INTACT. UNABLE TO GET IN CONTACT WITH CARDIOLOGY AT THIS TIME. ASKED DR. ABREU ABOUT SENDING SCRIPT OF PLAVIX HOME WHEN PT IS ALREADY TAKING WARFARIN, STATED HE DID NOT WANT TO SEND PLAVIX SCRIPT. PT LEFT VIA WHEELCHAIR TO PERSONAL VEHICLE WITH ALL BELONGINGS.
--- NOTE | 2020-05-31 13:55 | MORECARE ---
CASE MANAGEMENT DISCHARGE SUMMARY PATIENT: DU GARCIA UNIT: [id number] ADM DATE: 05/29/20 AGE: 64 : 59 SEX: M ROOM/BED: D.2112 AUTHOR: ADALBERTO RICHARD PHYSICIAN: REFERRING PHYSICIAN: CHUNG TOBIAS MD DATE OF SERVICE: 05/31/20 Discharge Plan Patient Name: DU [facility]ARCIA [facility] [facility] 1955 Planned Disposition: Anticipated Discharge Date: Discharge Date: 05/31/2020 Expected LOS: 0 Initial Reviewer: [email or web address] Initial Review Date: 05/31/2020 Generated: 05/31/20 2:55 pm Coverage Notice Reviewer: [email or web address] Lakeisha Sawant Notice Issued Date-Time: 05/30/2020 12:25 Notice Type: Medicare Outpatient Observation Notice Notice Delivered To: Patient Relationship to Patient: Self Spinner Iron Name: Delivery Method: HAND - Hand Delivered Margarita Days: Prior Verbal Notification: Recipient Understood Notice: Yes Recipient Signature: Yes Med Rec Note Co-signed by Attending: Coverage Notice Comment: Patient Name: DU GARCIA Page [phone] at 1355 All edits/amendments must be made on the electronic document DICTATION DATE: 05/31/20 1355 HAIR SAMPLE MATCHER: CASIMIRO 05/31/20 1355 RPT#: [id number] DC DATE:05/31/20 STATUS: DIS IN [facility] [address] [place] [address] END OF REPORT
== END 2020-05-31 12:22 | disposition home or self-care (01) ==
LOC: D.ER 18:27 → D.EDHOLD 21:52 → OBSVTIME 21:52 → D.M2 05-30 16:56
PROVIDERS: Family Medicine; Internal Medicine Cardiovascular Disease; ADMIT Emergency Medicine; ATTEND Emergency Medicine
DX: I21.4 Non-ST elevation (NSTEMI) myocardial infarction (principal); R07.9 Chest pain, unspecified; T82.855A Stenosis of coronary artery stent, initial encounter; Z86.73 Personal history of transient ischemic attack (TIA), and cerebral infarction without residual deficits; I11.0 Hypertensive heart disease with heart failure; I50.9 Heart failure, unspecified; J44.9 Chronic obstructive pulmonary disease, unspecified; F17.203 Nicotine dependence unspecified, with withdrawal; I25.10 Atherosclerotic heart disease of native coronary artery without angina pectoris

== ENCOUNTER 2020-11-25 17:58 | Emergency (ER) | payer OTHER ==
[~2020-11-25] VITALS: Ht 177.8 cm; Wt 92.7 kg
[2020-11-25 18:02] VITALS: Ht 177.8 cm; Wt 92.7 kg
[2020-11-25 19:06] LABS: BASOPHILS 0.4 % (0-2); EOSINOPHILS 2.7 % (0-7); HEMATOCRIT 44.1 % (42.0-54.0); HEMOGLOBIN 14.2 g/dL (13.5-17.5); IMMATURE GRANULOCYTES 0.4 % (0-5); LYMPHOCYTE ABS# 2.47 10x3/uL (1.32-3.57); LYMPHOCYTES 23.7 % (15-50); MCH 29.3 pg (26.0-34.0); MCHC 32.2 g/dL (31.0-37.0); MCV 91.1 fL (80.0-100.0); MONOCYTES 12.3 % (2-11); NEUTROPHIL ABS# 6.33 10x3/uL (1.78-5.38); NEUTROPHILS 60.5 % (40-80); PLATELET COUNT 254 10x3/uL (130-400); RBC 4.84 10x6/uL (4.20-6.10); RDW 19.3 % (11.5-14.5); WBC 10.4 10x3/uL (4.8-10.8)
[2020-11-25 19:11] LABS: INR 1.72 (0.85-1.17); PROTIME 18.7 SECONDS (11.6-15.0)
[2020-11-25 19:12] LABS: APTT 36.5 SECONDS (22.8-39.4)
[2020-11-25 19:25] LABS: CALC OSMOLALITY 272 mosm/kg (275-300); CALCIUM 8.3 mg/dL (8.5-10.1); CARBON DIOXIDE 25.6 mmol/L (21.0-32.0); CHLORIDE - SERUM 106 mmol/L (98-107); CREATININE - SERUM 1.4 mg/dL (0.6-1.3); GLUCOSE 120 mg/dL (74-106); POTASSIUM - SERUM 4.4 mmol/L (3.5-5.1); SODIUM 136 mmol/L (136-145); UREA NITROGEN 13 mg/dL (7-18); eGFR NON AFRICAN AMERICAN 54 mL/min (90-120)
[2020-11-25 19:36] LABS: ALKALINE PHOSPHATASE 101 U/L (30-120); ALT (SGPT) 22 U/L (10-68); CKMB 1.8 U/L (0.0-3.6); CREATINE KINASE 72 UL (21-232); MAGNESIUM - SERUM 2.3 mg/dL (1.8-2.4); PROTEIN - SERUM 7.8 g/dL (6.4-8.2); TROPONIN-I 0.026 ng/mL (0.000-0.060)
[2020-11-25 21:45] VITALS: BP 112/82
== END 2020-11-25 21:47 | disposition other institution (70) ==
LOC: D.ER 17:58
PROVIDERS: Emergency Medicine
DX: R07.9 Chest pain, unspecified (principal); Z86.73 Personal history of transient ischemic attack (TIA), and cerebral infarction without residual deficits; I11.0 Hypertensive heart disease with heart failure; I50.9 Heart failure, unspecified; J44.9 Chronic obstructive pulmonary disease, unspecified; Z72.0 Tobacco use

== ENCOUNTER 2021-02-14 21:54 | Inpatient (IN) | payer OTHER ==
[~2021-02-14] VITALS: Ht 177.8 cm; Wt 90.9 kg
--- NOTE | ~2021-02-14 | HEMODYNAMI ---
PATIENT:DU GARCIA MEDICAL RECORD: [id number] : 59 [facility] [place]# [id number] ADMISSION DATE: 02/15/21 Generatedon:110:54 Patient name: DU GARCIA Patient #: [id number] : 1955 Date of study: 02/15/2021 Page: Of Hemodynamic Procedure Report Patient Data Patient Demographics Procedure consent was obtained First Name: DU Gender: Male Last Name: JOSE : 1955 Patient #: [id number] Age: 65 year(s) Race: SSN: [id number] Additional ID: [id number] Contact details Address: [address] [place] [address] State: [place] City: [place] Zip code: [address] Past Medical History Allergies Allergen Reaction Date Comments Reported Other allergy 08/05/2019 PCN, EGGS, MORPHINE Other allergy 03/12/2020 EGGS, PCN/MORPHINE Admission Admission Data Admission Date: 02/15/2021 Admission Time: 2:09 Arrival Date: 02/15/2021 Arrival Time: 0:00 Admit Source: Emergency Insurance Payor: [facility] Room #: D.E13 [facility] #: [id number] Lab Results Lab Result Date: 02/15/2021 Lab Result Time: 0:00 Biochemistry Name Units Result Min Max BUN mg/dl 17 --(---*)-- 7 18 Creatinine mg/dl 1.3 --(---*)-- 0.6 1.3 eGFR ml/min 59 *-(----)-- 90 120 NONAFRICAN Troponin l ng/ml 0.092 --(----)-* 0 0.06 CBC Name Units Result Min Max Hematocrit % 35.3 *-(----)-- 42 54 Hemoglobin g/dl 11 *-(----)-- 13.5 17.5 Procedure Procedure Types Cath Procedure Diagnostic Procedure [facility] w/Coronaries Sedation Charges Moderate Sedation 40-54 minutes PCI Procedure Hemochron ACT Test PTCA PTCA Initial x2 Procedure Description Procedure Date Procedure Date: 02/15/2021 Procedure Start Time: 10:01 Procedure End Time: 10:50 Procedure Staff Name Function Shorty Workman MD Performing Physician Shanita Villalobos RT Monitor Radha Garrett RT Scrub Ray Sawant RN Nurse Indication Chest pain Procedure Data Cath Procedure Fluoroscopy Diagnostic fluoroscopy Total fluoroscopy Time: time: 15.4 min 15.4 min Diagnostic fluoroscopy Total fluoroscopy dose: dose: 1907 mGy 1907 mGy Entry Location Entry Primary Successful Side Size Upsize Upsize Entry Closure Succes sful Closure Location (Fr) 1 (Fr) 2 (Fr) Remarks Device Remarks Femoral Left 5 Fr 6 Fr Exoseal artery Short Estimated blood loss: 5 ml Diagnostic catheters Device Type Used For End Catheter Placement MULTIPACK JL 4.0 5Fr Left Coronary catheter Angiography MULTIPACK 3DRC 5Fr Right Coronary catheter Angiography MULTIPACK Pigtail 5 Fr LV Angiography catheter Procedure Complications No complications Procedure Medications Medication Administration Route Dosage 0.9% NaCl I.V. 100 ml/hr Oxygen etCO2 Nasal cannula 2 l/min Heparin Flush Bag added to field 2 bags (1000units/500ml NS) Lidocaine 2% added to field 20 Zofran I.V. 8 mg Versed I.V. 1 mg Fentanyl I.V. 50 mcg Versed I.V. 0.5 mg Heparin Bolus I.V. 5000 units Versed I.V. 0.5 mg Fentanyl I.V. 50 mcg Heparin Bolus I.V. 3000 units Lopressor I.V. 5 mg Pepcid I.V. 20 mg Heparin Bolus I.V. 2000 units Fentanyl I.V. 100 mcg Brilinta P.O. 90 mg Hemodynamics Rest HGB: 11 (g/dl) Heart Rate: 98 (bpm) Pressure Samples Time Site Value (mmHg) Purpose Heart Use Rate(bpm) 10:08 LV 67/6,3 Snapshot 92 Gradients Valve Time Site Site Mean SEP/DFP Peak To Heart Use 1 2 (mmHg) (sec/min) Peak Rate (mmHg) (bpm) Aortic 10:09 LV AO 107 Snapshots Pre Cath Intra NCS Post Cath Vital Signs Time Heart Resp SPO2 etCO2 NIBP (mmHg) Rhythm Pain Sedation Rate (ipm) (%) (mmHg) Status Level (bpm) 9:45:31 99 16 98 0.7 179/105(146) NSR 0 (11) 10(A) , No pain 9:49:59 145 17 95 28.5 168/96(141) NSR 0 (11) 10(A) , No pain 9:54:27 92 13 96 30 173/100(134) NSR 0 (11) 10(A) , No pain 9:58:56 90 12 97 33 164/100(137) NSR 0 (11) 10(A) , No pain 10:03:20 96 12 96 38.3 167/101(130) NSR 0 (11) 9(A) , No pain 10:07:46 97 12 96 39 156/90(125) NSR 0 (11) 9(A) , No pain 10:12:08 99 17 95 0.7 157/94(127) NSR 0 (11) 9(A) , No pain 10:16:30 101 22 93 27 157/92(129) NSR 0 (11) 9(A) , No pain 10:20:51 103 11 98 14.2 154/99(122) NSR 0 (11) 9(A) , No pain 10:25:09 98 20 97 36 154/96(128) NSR 0 (11) 9(A) , No pain 10:29:27 98 3 98 36 167/101(124) NSR 0 (11) 9(A) , No pain 10:33:47 83 19 94 19.5 158/93(128) NSR 0 (11) 9(A) , No pain 10:38:09 69 17 98 32.3 153/88(123) NSR 0 (11) 9(A) , No pain 10:42:27 86 15 95 30 164/99(136) NSR 0 (11) 9(A) , No pain 10:46:52 91 9 92 0.7 167/107(137) NSR 0 (11) 10(A) , No pain 10:51:20 86 17 95 26.3 175/112(140) NSR 0 (11) 10(A) , No pain Medications Time Medication Route Dose Verified Delivered Reason Notes Effectiveness by by 9:44:29 0.9% NaCl I.V. 100 Shorty Ray used for ml/hr St Matt Sawant RN procedure MD 9:44:37 Oxygen etCO2 2 Shroty Ray used for Nasal l/min St Matt Sawant RN procedure cannula 9:44:46 Heparin Flush added 2 Shorty Shorty used for Bag to bags [facility] procedure (1000units/500ml field MD TREVIZO NS) 9:45:52 Lidocaine 2% added 20ml Shorty Adrianory for local to vial [facility] anesthetic field MD TREVIZO 9:46:03 Zofran I.V. 8 mg Shorty Ray for nausea St Matt Sawant RN, MD 9:50:00 Versed I.V. 1 mg Shorty Ray for sedation St Matt Sawant RN, MD 9:50:06 Fentanyl I.V. 50 Shorty Ray for sedation mcg St Matt Sawant RN, MD 10:00:38 Versed I.V. 0.5 Shorty Ray for sedation mg St Matt Sawant RN, MD 10:11:45 Heparin Bolus I.V. 5000 Shorty Ray for verif ied units St Matt Sawant RN anticoagulation per crystal parham rn 10:13:38 Versed I.V. 0.5 Shorty Ray for sedation mg St Matt Sawant RN, MD 10:13:42 Fentanyl I.V. 50 Shorty Ray for sedation mcg St Matt Sawant RN, MD 10:26:02 Heparin Bolus I.V. 3000 Shorty Ray for verif ied units St Matt Sawant RN anticoagulation per crystal parham rn 10:33:10 Lopressor I.V. 5 mg Shorty Ray for St Matt Sawant RN hypertension 10:41:46 Pepcid I.V. 20 mg Shorty Ray Per physician pt c/ o St Matt Sawant RN indigestion 10:44:34 Heparin Bolus I.V. 2000 Shorty Ray for verif ied units St Matt Sawant RN anticoagulation per crystal parham rn 10:52:15 Fentanyl I.V. 100 Shorty Ray for back pain mcg St Matt Sawant RN, MD 10:52:26 Brilinta P.O. 90 mg Shorty Ray for St Matt Sawant RN antiplatelet MD therapy Procedure Log Time Note 9:02:35 Informed consent obtained and on chart 9:02:45 Diagnostic Cath Status : Urgent 9:03:00 Indication : Chest pain 9:03:04 Arrival Date: 02/15/2021 12:00:00 AM 9:03:05 Admit Source: Emergency department 9:03:09 Insurance Payor : [facility] 9:03:25 ACC Patient presents with Unstable Angina CCS Anginal Class 2--Slight limitation of ordinary activity. 9:03:32 Procedure Status Urgent Heart Cath (IP). 9:03:34 Time tracking: Regular hours (M-F 7:00 - 5:00) 9:03:38 Plan of Care:Hemodynamics will remain stable., Cardiac rhythm will remain stable., Comfort level will be maintained., Respiratory function will remain adequate., Patient/ family verbilizes understanding of procedure., Procedure tolerated without complication., Recovers from procedure without complications.. 9::31 Lab Result : BUN 17 mg/dl :: Lab Result : Hemoglobin 11 g/dl :: Lab Result : eGFR NONAFRICAN 59 ml/min :: Lab Result : Creatinine 1.3 mg/dl :: Lab Result : Troponin l 0.092 ng/ml ::31 Lab Result : Hematocrit 35.3 % 9:23:03 Ray Sawant RN sent for patient. Start room use. 9:27:04 Patient received from ED to CCL 1 Alert and oriented. Tansferred to table in Supine position. 9:34:15 Warm blankets applied, and iwllard hugger turned on for patient comfort. 9:34:15 Correct patient and procedure confirmed by team. 9:34:15 ECG and BP/O2 sat monitors applied to patient. 9:44:01 Vital chart was started 9:44:29 0.9% NaCl 100 ml/hr I.V. was administered by Ray Sawant RN; used for procedure; Verbal order read back and verified. 9:44:37 Oxygen 2 l/min etCO2 Nasal cannula was administered by Ray Sawant RN; used for procedure; Verbal order read back and verified. 9:44:46 Heparin Flush Bag (1000units/500ml NS) 2 bags added to field was administered by Shorty Workman MD; used for procedure; Verbal order read back and verified. 9:45:52 Lidocaine 2% 20ml vial added to field was administered by Shorty Workman MD; for local anesthetic; Verbal order read back and verified. 9:46:03 Zofran 8 mg I.V. was administered by Ray Sawant RN; for nausea; Verbal order read back and verified. 9:46:52 Baseline sample Acquired. 9:47:13 Rhythm: sinus tachycardia 9:47:22 Full Disclosure recording started 9:47:26 H&P Date Dictated: 02/15/2021 ER History on chart., New H&P dictated by physician.. 9:47:28 Pre-procedure instructions explained to patient. 9:47:28 Pre-op teaching completed and patient verbalized understanding. 9:47:32 Family in waiting room. 9:47:33 Patient NPO since Midnight. 9:47:42 Is the patient allergic to Iodine/contrast media? No. 9:47:52 Was the patient premedicated? Yes 9:47:55 Is patient on blood thinner?Yes 9:47:58 ACC The patient was administered the following blood thiners within the last 24 hours: ACCBrilinta 9:48:01 Patient diabetic? No. 9:48:42 Previous problem with sedation/anesthesia? No ? 9:48:43 Snore? Yes 9:48:44 Sleep apnea? Yes 9:48:45 Deviated septum? No 9:48:46 Opens mouth fully? Yes 9:48:47 Sticks out tongue? Yes 9:48:50 Airway obstruction? No ? 9:48:52 Dentures? No ? 9:49:00 Pre procedure: right dorsailis pedis pulse 1+ Palpable, but thready & weak; easily obliterated 9:49:09 Pre procedure: left femoral pulse 2+ Normal; easily identifiable; not easily obliterated 9:49:13 Patient pain scale 9/10 ?. 9:49:21 IV patent on arrival in left antecubital with 0.9% NaCl at O. 9:49:25 Lab results completed and on chart. 9:49:29 Risk of Mortality: 0.2 9:49:33 Risk of blood transfusion: 2.1 9:49:36 Risk of RAJESH: 0.7 9:49:45 Left groin area was prepped with chlora-prep and draped in sterile fashion 9:49:46 Alarms reviewed by R. N. 9:49:46 Sharps counted by scrub and verified by R.N. 9:49:48 Physician arrived 9:49:48 --------ALL STOP TIME OUT------ 9:49:48 Final Timeout: patient, procedure, and site verified with staff and physician. All members of the team are in agreement. 9:49:51 Left groin site verified by team. 9:49:55 Fire Safety Assessment: A--An alcohol-based skin anteseptic being used preoperatively., C--Open oxygen or nitrous oxide is being used., D--An ESU, laser, or fiber-optic light is being used. 9:49:58 Physical assessment completed. ASA score P 3 - A patient with severe systemic disease as per Shorty Workman MD. 9:50:00 Versed 1 mg I.V. was administered by Ray Sawant RN; for sedation; Verbal order read back and verified. 9:50:06 Fentanyl 50 mcg I.V. was administered by Ray Sawant RN; for sedation; Verbal order read back and verified. 9:50:13 3a) 45-59 Moderately reduced kidney function. 9:51:04 Maximum allowable contrast dose (3.7 X eGFR X 0.75)163 ml. 9:51:08 Sedation plan: IV Moderate Sedation Medication:Versed, Fentanyl 9:51:50 Use device set Femoral Dx 9:51:51 ACIST Syringe (82069) opened to sterile field. 9:51:51 Bag Decanter (2002S) opened to sterile field. 9:51:52 Medline Cath Pack ([id number]) opened to sterile field. 9:51:53 ACIST Hand Control (06453) opened to sterile field. 9:51:53 ACIST Manifold (27081) opened to sterile field. 9:51:53 DIAGNOSTIC Multipack 5Fr catheter set ([id number]) opened to sterile field. 9:51:54 Tegaderm 4 x 4 (1626W) opened to sterile field. 9:51:55 SHEATH 5FR [place] (IYI634) opened to sterile field. 9:51:55 EMERALD Guide Wire (253-111) opened to sterile field. 9:59:52 Procedure started. 10:00:38 Versed 0.5 mg I.V. was administered by Ray Sawant RN; for sedation; Verbal order read back and verified. 10:01:57 Local anesthetic to left femerol artery with Lidocaine 2% by Shorty Workman MD.INITIAL ACCESS ONLY 10:02:39 A 5 Fr sheath was inserted into the Left Femoral artery 10:03:12 A MULTIPACK JL 4.0 5Fr catheter was advanced over the wire and used for Left Coronary Angiography. 10:03:36 LCA angiography performed. 10:03:39 Injector settings: Ml/sec: 3, Volume: 6, 10:04:45 Catheter removed. 10:05:07 A MULTIPACK 3DRC 5Fr catheter was advanced over the wire and used for Right Coronary Angiography. 10:06:01 RCA angiography performed. 10:06:04 Injector settings: Ml/sec: 3, Volume: 6, 10:06:54 Catheter removed. 10:07:18 A MULTIPACK Pigtail 5 Fr catheter was advanced over the wire and used for LV Angiography. 10:08:59 LV hemodynamics recorded. 10:08:59 LV gram done using GODDARD 10:09:02 Injector settings: Ml/sec: 5, Volume: 15, 10:09:18 EF : 15 % 10:09:21 Catheter removed. 10:10:18 SHEATH 6FR [place] (OBY447) opened to sterile field. 10:10:19 INFLATOR Merit BasixCompak (DR6424) opened to sterile field. 10:10:19 BMW 300cm [place] 2 J wire ([id number]) opened to sterile field. 10:10:29 Proceeding to intervention. 10:10:37 Sheath upsized to a 6 Fr Short. 10:10:48 ACC Pre-intervention CESAR Flow is 2. 10:10:56 Pre PCI Site: [place] dRCA has 100% stenosis. 10:11:44 GUIDE 6FR HS I catheter (LA6HSI) opened to sterile field. 10:11:45 Heparin Bolus 5000 units I.V. was administered by Ray Sawant RN; for anticoagulation; verified per crystal parham rn Verbal order read back and verified. 10:13:10 6 Fr HS 1 guide catheter was inserted over the wire 10:13:38 Versed 0.5 mg I.V. was administered by Ray Sawant RN; for sedation; Verbal order read back and verified. 10:13:42 Fentanyl 50 mcg I.V. was administered by Ray Sawant RN; for sedation; Verbal order read back and verified. 10:17:14 WHISPER 300cm guide wire ([id number]) opened to sterile field. 10:17:22 BMW wire advanced. 10:18:09 Wire removed. 10:18:19 WHISPER wire advanced. 10:21:28 Wire removed. 10:22:38 Asahi Minamo 300cm wire opened to sterile field. 10:26:02 Heparin Bolus 3000 units I.V. was administered by Ray Sawant RN; for anticoagulation; verified per crystal parham rn Verbal order read back and verified. 10:29:45 Inflate balloon Inflation number: 1 A EMERGE OTW 2.5 x 12 balloon ([id number]) was prepped and advanced across the Dist RCA 100, then inflated to 12 JEREMY for 0:30 (min:sec) . 10:31:23 Inflation number: 2 The EMERGE OTW 2.5 x 12 balloon ([id number]) was reinflated across the Dist RCA 100, to 12 JEREMY for 0:30 (min:sec) 0. 10:32:36 Balloon removed over the wire. 10:33:01 Wire removed. 10:33:02 Guide catheter removed. 10:33:10 Lopressor 5 mg I.V. was administered by Ray Sawant RN; for hypertension; Verbal order read back and verified. 10:34:11 GUIDE 6FR JL 4.0 catheter ([id number]) opened to sterile field. 10:34:43 6 Fr JL 4 guide catheter was inserted over the wire 10:37:33 BMW wire advanced. 10:40:11 Wire advanced across lesion. 10:41:46 Pepcid 20 mg I.V. was administered by Ray Sawant RN; Per physician; pt c/o indigestion Verbal order read back and verified. 10:43:24 Inflate balloon Inflation number: 1 A EUPHORA 3.0 x 15 Balloon ([id number]) was prepped and advanced across the Mid LAD 80, then inflated to 12 JEREMY for 0:30 (min:sec) . 10:44:14 Inflation number: 2 The EUPHORA 3.0 x 15 Balloon ([id number]) was reinflated across the Mid LAD , to 12 JEREMY for 0:30 (min:sec) . 10:44:34 Heparin Bolus 2000 units I.V. was administered by Ray Sawant RN; for anticoagulation; verified per crystal parham rn Verbal order read back and verified. 10:45:17 Inflation number: 3 The EUPHORA 3.0 x 15 Balloon ([id number]) was reinflated across the Mid LAD , to 12 JEREMY for 0:30 (min:sec) . 10:45:33 Balloon removed over the wire. 10:45:34 Wire removed. 10:45:34 Guide catheter removed. 10:45:41 EXOSEAL 6Fr (EX600) opened to sterile field. 10:46:24 Sheath removed intact; hemostasis achieved with Exoseal to the Left Femoral artery. 10:46:26 Procedure ended.(Physican Out) 10:47:09 Fluoroscopy time 15.40 minutes. 10:47:15 Fluoroscopy dose: 1907 mGy 10:47:15 Flurop Dose total: 1907 10:47:21 Dose Area Product 25044 mGy/cm. 10:48:59 Maximum allowable dose exceeded? Yes. 10:49:01 Sharps counted by scrub and verified by R.N. 10:49:02 Insertion/operative site no bleeding no hematoma. 10:49:05 Post-op/insertion site Left Femoral artery dressed using a 4 x 4 and Tegaderm. 10:49:07 Post Procedure Pulses reassessed and unchanged 10:49:10 Post procedure rhythm: unchanged. 10:49:13 Estimated blood loss: 5 ml 10:49:15 Post procedure instruction explained to patient.Patient verbalizes understanding. 10:49:16 Patient needs reinforcement of post procedure teaching. 10:50:30 Procedure type changed to Cath procedure, Diagnostic procedure, LHC, [facility] w/Coronaries, Sedation Charges, Moderate Sedation 40-54 minutes, PCI procedure, Hemochron ACT Test, PTCA, PTCA Initial x2 10:50:31 Procedure and supply charges have been captured, reviewed, submitted and are correct. 10:50:36 Procedure Complication : No complications 10:50:38 Vital chart was stopped 10:50:[address] [facility] Findings: MVD- PCI performed (see procedure note) 10:50:42 Operative report dictated upon procedure completion. 10:50:43 See physician's report for complete and final results. 10:50:51 Report given to Pre/Post Procedure Room. 10:50:56 Patient transfered to Pre/Post Procedure Room with Stretcher. 10:50:58 Procedure ended. 10:50:58 Full Disclosure recording stopped 10:51:11 ACC-PCI Only Patient was given prescriptions, or instructed by Shorty Workman MD to start/continue the following medications upon discharge: Brilinta 10:52:07 ACT drawn and resulted at 267 seconds. (normal therapeutic range 180-240 seconds). 10:52:15 Fentanyl 100 mcg I.V. was administered by Ray Sawant RN; for back pain; Verbal order read back and verified. 10:52:26 Brilinta 90 mg P.O. was administered by Ray Sawant RN; for antiplatelet therapy; Verbal order read back and verified. 10:52:56 End room use (Document Last) Intervention Summary Intervention Notes Time ActionType Lesion and Equipment Action# Pressure Duration Attributes Used 10:29:45 Inflate Dist RCA EMERGE OTW 1 12 00:30 balloon 2.5 x 12 balloon ([id number]) 10:31:23 Reinflate Dist RCA EMERGE OTW 2 12 00:30 balloon 2.5 x 12 balloon ([id number]) 10:43:24 Inflate Mid LAD EUPHORA 3.0 1 12 00:30 balloon x 15 Balloon ([id number]) 10:44:14 Reinflate Mid LAD EUPHORA 3.0 2 12 00:30 balloon x 15 Balloon ([id number]) 10:45:17 Reinflate Mid LAD EUPHORA 3.0 3 12 00:30 balloon x 15 Balloon ([id number]) Device Usage Item Name Manufacture Quantity Catalog Number [facility] Lot# / Charge Number Stock Stock Serial# Code ACIST Acist 1 81765 154116 110857 269154 20 Syringe Medical (60401) Systems Inc Bag Decanter Microtek 1 2001S 230975 92690 369544 5 () Medical Inc. Medline Cath Medline 1 [id number] 856907 64845 847322 5 Pack ([id number]) ACIST Hand Acist 1 28688 309672 940176 434782 5 Control Medical (85428) Systems Inc ACIST Acist 1 12641 960143 142654 887335 5 Manifold Medical (70225) Systems Inc DIAGNOSTIC Cardinal 1 EY7736 265695 65557 555185 30 Multipack Health 5Fr catheter set (QW2744) Tegaderm 4 x 3M 1 1626W 722633 501852 944298 5 4 (1626W) SHEATH 5FR Terumo 1 UPJ901 999009 486863 824441 5 [place] (RTM915) EMERALD Cardinal 1 502-455 146851 322291 602131 5 Guide Wire Health (502-455) MULTIPACK JL Cardinal 1 318128 5 4.0 5Fr Health catheter MULTIPACK Cardinal 1 999036 5 3DRC 5Fr Health catheter MULTIPACK Cardinal 1 466686 5 Pigtail 5 Fr Health catheter SHEATH 6FR Terumo 1 XFV081 420836 398964 067142 40 [place] (XBI600) INFLATOR [facility] 1 OZ1079 284331 182530 608265 15 [facility] Medical BasixCompak (FD6974) BMW 300cm Dent 1 [id number] 374155 526679 353667 5 [place] 2 Vascular J wire ([id number]) GUIDE 6FR HS Medtronic 1 LA6HSI 625697 43473 620214 1 I catheter (LA6HSI) WHISPER Dent 1 [id number] 888951 988226 117529 5 300cm guide Vascular wire ([id number]) [facility] Intecc 1 [id number] 693034 3202524 445837 0 300cm wire EMERGE OTW Prosperity 1 [id number] 553576 753047 291425 5 [id number] 2.5 x 12 Scientific balloon ([id number]) GUIDE 6FR JL Medtronic 1 [id number] 411931 90235 801328 1 4.0 catheter (GQ0AA92) EUPHORA 3.0 Medtronic 1 [id number] 102339 045638 276643 5 [id number] x 15 Balloon ([id number]) EXOSEAL 6Fr Cardinal 1 EX600 481174 828365 736404 10 (EX600) Health Signature Audit [place] Stage Time Signature Unsigned Intra-Procedure 02/15/2021 Shanita Villalobos 10:53:47 AM RT(R) Intra-Procedure 02/15/2021 Ray Sawant RN 10:54:22 AM Intra-Procedure 02/15/2021 Shorty Regalado 10:54:48 AM Matt TREVIZO [facility] [address] [place] [address]
[2021-02-14] MEDS ORDERED: DOXYCYCLINE HY100 M2 PO (22:12)
[2021-02-14] MEDS ORDERED: NEURONTIN 400400 MG PO (22:12)
[2021-02-14] MEDS ORDERED: METHOCARBAMOL500 MG PO (22:13)
[2021-02-14] MEDS ORDERED: MELATONIN 3 MG1 TAB PO (22:13)
[2021-02-14] MEDS ORDERED: OXYCODONE HCL10 MG PO (22:14)
[2021-02-14] MEDS ORDERED: ZOFRAN4 MG PO (22:14)
[2021-02-14] MEDS ORDERED: PROTONIX40 MG PO (22:15)
[2021-02-14] MEDS ORDERED: MIRALAX17 GM PO (22:16)
[2021-02-14] MEDS ORDERED: BRILINTA90 MG PO (22:16)
[2021-02-14 22:27] LABS: BASOPHILS 1.2 % (0-2); EOSINOPHILS 1.5 % (0-7); HEMATOCRIT 35.3 % (42.0-54.0); LYMPHOCYTES 37.4 % (15-50); MCH 31.3 pg (26.0-34.0); MCHC 31.3 g/dL (31.0-37.0); MEAN PLATELET VOLUME 8.5 fL (7.4-10.4); NEUTROPHILS 48.9 % (40-80); PLATELET COUNT 257 10x3/uL (130-400); RBC 3.53 10x6/uL (4.20-6.10); RDW 20.7 % (11.5-14.5); WBC 11.4 10x3/uL (4.8-10.8)
[2021-02-14 22:32] LABS: APTT 29.1 SECONDS (22.8-39.4); INR 1.07 (0.85-1.17); PROTIME 12.8 SECONDS (11.6-15.0)
[2021-02-14 22:34] LABS: ANION GAP 12.6 mmol/L (8-16); CALCIUM 8.6 mg/dL (8.5-10.1); CREATININE - SERUM 1.3 mg/dL (0.6-1.3); POTASSIUM - SERUM 3.6 mmol/L (3.5-5.1)
[2021-02-14 22:56] LABS: ALBUMIN 2.5 g/dL (3.4-5.0); BILIRUBIN - TOTAL 0.41 mg/dL (0.2-1.3); MAGNESIUM - SERUM 1.9 mg/dL (1.8-2.4); PROTEIN - SERUM 7.3 g/dL (6.4-8.2)
[2021-02-14 22:57] LABS: TROPONIN-I 0.092 ng/mL (0.000-0.060)
[2021-02-15] VITALS (13 sets, daily range): BP systolic 117–160; BP diastolic 71–87; Ht 177.8 cm; Wt 90.9 kg
--- NOTE | 2021-02-15 03:00 | NUR ---
PT REFUSED O 2. PT INFORMED OF RISK. PT STATES "THAT IS MY NORMAL" PT FAMILY AT BEDSIDE.
--- NOTE | 2021-02-15 04:01 | NUR ---
REPORT TO JACE RAMOS
--- NOTE | 2021-02-15 07:19 | NUR ---
REPORT TO ONCOMING SHIFT
--- NOTE | 2021-02-15 08:40 | NUR ---
PREP FOR CARDIAC CATHETERIZATION COMPLETED. GOWN ON.
[2021-02-15 08:48] LABS: BASOPHILS 1.2 % (0-2); EOSINOPHILS 0.7 % (0-7); HEMATOCRIT 36.4 % (42.0-54.0); HEMOGLOBIN 11.6 g/dL (13.5-17.5); LYMPHOCYTES 25.9 % (15-50); MCH 31.9 pg (26.0-34.0); MCHC 31.8 g/dL (31.0-37.0); MCV 100.1 fL (80.0-100.0); MEAN PLATELET VOLUME 8.2 fL (7.4-10.4); MONOCYTES 8.9 % (2-11); NEUTROPHILS 63.3 % (40-80); PLATELET COUNT 223 10x3/uL (130-400); RBC 3.63 10x6/uL (4.20-6.10); RDW 20.9 % (11.5-14.5); WBC 11.1 10x3/uL (4.8-10.8)
--- NOTE | 2021-02-15 08:55 | NUR ---
PRE-OP MEDICATIONS GIVEN. GIANLUCA HUNG AT [facility].
[2021-02-15 09:05] LABS: ANION GAP 12.3 mmol/L (8-16); CALCIUM 8.8 mg/dL (8.5-10.1); CARBON DIOXIDE 26.6 mmol/L (21.0-32.0); CHOL - HDL RATIO 8.8 ratio (2.3-4.9); CREATININE - SERUM 1.2 mg/dL (0.6-1.3); LDL-HDL RATIO 6.3 ratio (1.5-3.5); POTASSIUM - SERUM 3.9 mmol/L (3.5-5.1)
--- NOTE | 2021-02-15 09:08 | NUR ---
TO HIM ASSISTANT WITH HIM ASSISTANT STAFF VIA STRETCHER.
[2021-02-15 09:30] LABS: BILIRUBIN NEGATIVE (NEGATIVE); KETONE NEGATIVE (NEGATIVE); NITRITE NEGATIVE (NEGATIVE); SQUAMOUS EPITHELIAL RARE HPF (0-4); UROBILINOGEN NORMAL mg/dL (< 2); WHITE CELLS - URINE 0-5 HPF (0-1)
[2021-02-15 09:31] LABS: GRANULAR CAST 0-5 LPF (NONE SEEN)
[2021-02-15 09:32] LABS: EPITHELIAL CELL CAST RARE LPF (NONE SEEN)
--- NOTE | 2021-02-15 11:05 | NUR ---
PT REC'D TO CATH RECOVERY ROOM 11 VIA STRETCHER. MONITORS ESTAB. SEE BRIM IRONER HAND HX AND ASSESSMENT. PT WILL BE ADMITTED TO PCU. L GROIN EXOSEAL SITE SOFT, NO S/S BLEEDING OR HEMATOMA. L L AKA NOTED, EXTR WARM. PT AROUSES TO NAME, NO S/S OF DISTRESS. VSS. ALARMS ON AND C/L IN REACH.
--- NOTE | 2021-02-15 11:35 | NUR ---
ORDER CLARIFIED TO ADMIT PT TO PCU WITH DR ECHOLS - AIR PLANT ENGINEER NOTIFIED. DR. ECHOLS NOTIFIED OF PT EPISODES OF SLEEP APNEA WITH O2 SATS DROPPING TO 77% BREIEFLY, THEN BACK TO 90S, PT REFUSES TO WEAR 02 - PULLS IT AND PULSE OX OFF - AWAITING ROOM ASSIGNMENT. I TRIED TO GO GET TO SIT WITH PT, SHE WAS NOT IT WAITING ROOM AT THIS TIME.
--- NOTE | 2021-02-15 12:04 | NUR ---
AT , ADMISSION HISTORY AND ASSESSMENT COMPLETED.
--- NOTE | 2021-02-15 13:10 | NUR ---
PT C/O PAIN - PRN DILAUDID GIVEN - SEE EMAR. AT BS.. PT VOIDED 350ML CLEAR, SHAUNNA URINE. PT REFUSED NICOTINE PATCH. VSS. ALARMS ON. C/L IN REACH.
--- NOTE | 2021-02-15 13:30 | NUR ---
REPORT RECIEVED FROM JAKOB CARE ASSUMED
--- NOTE | 2021-02-15 14:16 | NUR ---
PT RESTING QUIETLY , PT PLACED SEMI FOWLERS POSITION, VSS, NSR PER MONITOR BP 130/81 HR 61, PT FOLLOWS ALL COMMANDS, RIGHT GROIN WITH WOUND VAC CLAMPED, LEFT GROIN SOFT WITHOUT OOZING OR BLEEDING PT WITH LEFT AKA STUMP WARM. IV INFUSING PER ORDERS , CALL LIGHT WITHIN REACH, SPOUSE AT BEDSIDE. PT DENIES NEEDS AT PRESENT
--- NOTE | 2021-02-15 14:25 | NUR ---
DR LOPEZ AT BEDSIDE TO SEE PT AND SPOUSE
--- NOTE | 2021-02-15 15:01 | NUR ---
REPORT CALLED TO MELLY RAMOS PT TRANSPORTED TO ROOM 2126 VIA STRETCHER
[2021-02-16] VITALS: BP 121/56
--- NOTE | 2021-02-16 00:23 | NUR ---
RESTING WITH EYES CLOSED, NO S/S DISTRESS NOTED.
--- NOTE | 2021-02-16 01:33 | NUR ---
I have reviewed this patient and I concur with the Shift Assessment completed by the Licensed Practical Nurse today this shift.
[2021-02-16 05:38] VITALS: BP 112/66
[2021-02-16 07:24] LABS: BASOPHILS 0.4 % (0-2); EOSINOPHILS 0.4 % (0-7); HEMATOCRIT 30.7 % (42.0-54.0); HEMOGLOBIN 9.8 g/dL (13.5-17.5); LYMPHOCYTES 24.5 % (15-50); MCH 31.9 pg (26.0-34.0); MCHC 32.1 g/dL (31.0-37.0); MCV 99.3 fL (80.0-100.0); MEAN PLATELET VOLUME 8.8 fL (7.4-10.4); MONOCYTES 11.6 % (2-11); NEUTROPHILS 63.1 % (40-80); PLATELET COUNT 206 10x3/uL (130-400); RBC 3.09 10x6/uL (4.20-6.10); RDW 20.4 % (11.5-14.5); WBC 11.6 10x3/uL (4.8-10.8)
[2021-02-16 08:16] LABS: ALBUMIN 2.4 g/dL (3.4-5.0); ANION GAP 10.2 mmol/L (8-16); BILIRUBIN - TOTAL 0.49 mg/dL (0.2-1.3); CALCIUM 8.4 mg/dL (8.5-10.1); CARBON DIOXIDE 27.9 mmol/L (21.0-32.0); CREATININE - SERUM 1.3 mg/dL (0.6-1.3); MAGNESIUM - SERUM 1.9 mg/dL (1.8-2.4); PHOSPHOROUS 3.1 mg/dL (2.5-4.9); POTASSIUM - SERUM 4.1 mmol/L (3.5-5.1); PROTEIN - SERUM 6.4 g/dL (6.4-8.2)
[2021-02-16 08:33] LABS: TROPONIN-I 49.195 ng/mL (0.000-0.060)
[2021-02-16 08:50] VITALS: BP 165/51
[2021-02-16] MEDS ORDERED: COREG12.5 MG PO (11:09)
[2021-02-16] MEDS ORDERED: NICODERM CQ1 EAC3 TRANSDERM (11:09)
--- NOTE | 2021-02-16 13:03 | NUR ---
W-D DRSG CHANGE TO RIGHT GROIN. IV AND TELEMETRY DCD. DC PLANS GIVEN. UNDERSTANDING VOICED. ESCORTED TO ER WHERE AND DAUGHTER ARE.
--- NOTE | 2021-02-17 09:24 | CN ---
PATIENT NAME:DU GARCIA MEDICAL RECORD: [id number] : 59 LOCATION:D. D.2127 ADMIT DATE: 02/15/21 ACCOUNT: [id number] CONSULTING PHYSICIAN: JO-ANN ECHOLS MD REFERRING PHYSICIAN: CHUNG TOBIAS MD DATE OF CONSULTATION: 02/15/2021 HISTORY OF PRESENT ILLNESS: A 65-year-old gentleman known to our service with a history of coronary artery disease, most recent intervention with restenotic stent in the LAD, has a history of cardiomyopathy, currently on FARHEEN inhibitor, beta blockade and aldosterone inhibition, history obstructive pulmonary disease and unfortunately continues to smoke. Had an AAA repair. He has been having intermittent angina since that time and had onset of severe rest symptomatology. Did have increase in troponins as well. Upon presentation to the ER, EKG shows nonspecific ST-T changes, perhaps more pronounced than baseline. Strong family history of coronary artery disease. We were asked to see him concerning his cardiovascular status. PAST MEDICAL HISTORY: Includes; 1. History of peripheral vascular disease status post AAA. 2. Coronary artery disease. 3. Chronic obstructive pulmonary disease, on inhaler therapy. 4. Chronic pain. 5. Cardiomyopathy as described above. 6. Gastroesophageal reflux disease. ALLERGIES: PENICILLIN AND MORPHINE. SOCIAL HISTORY: Nondrinker. Smokes about a pack a day. Occasional marijuana use. He is able to take care of all his ADLs prior to AAA repair, although he was having some difficulty from that. No set exercise program. REVIEW OF SYSTEMS: The patient reports easy bruising but reports no swollen glands. The patient reports no fever, no night sweats, no significant weight gain, no significant weight loss. No significant exercise tolerance. The patient reports no dry eyes, no irritation, no vision change. Patient reports no difficulty hearing and no ear pain. Patient reports no frequent nose bleeds or nose and sinus problems. Patient reports on arm pain on exertion. No shortness of breath while lying down. No history of heart murmur. Patient reports no cough, no wheezing or coughing up blood. Patient reports no abdominal pain, no vomiting. Normal appetite. No diarrhea and not vomiting blood. No nausea and no constipation. Patient reports no incontinence. No difficulty urinating. No hematuria. No increased frequency. Patient reports no muscle aches. No weakness, no arthralgias, no back pain. No swelling of the extremities. Patient reports no abnormal mole, no jaundice, no rashes. Reports no loss of consciousness. No weakness and no numbness. No seizures, dizziness, or headaches. The patient reports no depression, no sleep disturbance, feeling safe in a relationship and no alcohol abuse. Patient reports on fatigue. Reports no runny nose or sinus pressure. No itching, no hives, and no frequent sneezing. PHYSICAL EXAMINATION: GENERAL: No acute distress, appears stated age, alert and oriented. VITAL SIGNS: Blood pressure 131/78, pulse 78 and regular. HEENT: Normocephalic, atraumatic. CONSULT REPORT [id number] DU GARCIA NECK: No bruits were noted. Questionable cm JVD, difficult to assess with his neck anatomy. HEART: Regular. Probable S3 is noted. LUNGS: Prolonged expiratory phase. Diminished breath sounds bibasilar. ABDOMEN: Soft and nontender. EXTREMITIES: Pulses actually palpable, 1+. There is no edema. NEUROLOGIC: Grossly intact. DIAGNOSTIC DATA: EKG shows perhaps more pronounced ST-T changes inferolaterally. IMPRESSION: Acute coronary syndrome. PLAN: For angiography and intervention based on the above. TRANSINT:[id number] Voice Confirmation ID: [id number] DOCUMENT ID: [id number] JO-ANN ECHOLS MD at 0924 CC: [id number] DICTATION DATE: 02/15/21949 PAYROLL ANALYST: 02/15/21 1218 DIS IN 02/16/21 [place] [id number]
--- NOTE | 2021-02-17 09:24 | OP ---
PATIENT NAME: DU GARCIA MEDICAL RECORD: [id number] :59 LOCATION:D. D.7 ADMISSION DATE:02/15/21 SURGEON: JO-ANN ECHOLS MD DATE OF OPERATION: 02/15/2021 PROCEDURE: Left heart catheterization, selective coronary angiography plus PTCA to the right plus PTCA to the LAD, left femoral artery approach. CATHETERS: A 5-Cymro sheath, 5/4 left and right Monique, 5/4 pig. Hockey-stick guiding catheter, JL4 guiding catheter. A multitude of wires 2.5 balloon on the right and 3.0 balloon on the left. The patient was returned to the roberts. Sheath removed. ExoSeal device and manual pressure were held. FINDINGS: Left ventriculography in 30-degree GODDARD view: Severe global hypokinesis with inferior basically akinesis. LV function 15% to 20%. CORONARY ANATOMY: Left main: Left main is free of disease. LAD: Previously placed stent is restenotic. This may be in the area of a bridge is well difficult to tell. Circumflex: The circumflex has luminal irregularities probably approaching 70%. Right coronary artery: Totally occluded. This vessel was opened via cath report back in June. DESCRIPTION OF PROCEDURE: After a 5-Cymro sheath was exchanged for a 6-Cymro sheath, a hockey-stick guiding catheter provided good guide catheter support. We were finally able using an over the wire balloon as backup. I placed a Whisper wire across the totally occluded right coronary. Multiple inflations were placed up and down the right coronary down to the distal PDA; however, we were unable to establish flow. Next, attention was turned to the LAD, a JL4 guiding catheter provided excellent guide catheter support followed by BMW wire. Balloon used was a 3.0 x 15 mm Euphora balloon in the area of restenosis. This showed hyperexpansion of the stent with improvement of 80% to 90% stenosis, no significant residual, nice step down distally. IMPRESSION: PTCA of the right coronary artery was reestablish flow with total occlusion and a successful PTCA restenotic stent in the LAD. At this point in time, maximize his myopathic medications. If the LV function is not improved via echo, we will need to consider device therapy. QRS duration is somewhat borderline for resynchronization therapy. Further recommendations based on clinical course. TRANSINT:[id number] Voice Confirmation ID: [id number] DOCUMENT ID: [id number] JO-ANN ECHOLS MD at 0924 CC: [id number] DICTATION DATE: 02/15/21 1055 JUNIOR STAFF ACCOUNTANT: 02/15/21 1309 DIS IN 02/16/21 [place] [id number] [place] [id number]
== END 2021-02-16 13:05 | disposition home or self-care (01) | DRG 251 ==
LOC: D.ER 21:54 → OBSVTIME 02-15 02:09 → D.EDHOLD 02-15 02:09 → D.M2 02-15 15:23
PROVIDERS: Family Medicine; Internal Medicine Interventional Cardiology; ADMIT Emergency Medicine; ATTEND Emergency Medicine
PROC: B2111ZZ Fluoroscopy of Multiple Coronary Arteries using Low Osmolar Contrast (ICD-10-PCS; 2021-02-15)
PROC: B2151ZZ Fluoroscopy of Left Heart using Low Osmolar Contrast (ICD-10-PCS; 2021-02-15)
PROC: 02703ZZ Dilation of Coronary Artery, One Artery, Percutaneous Approach (ICD-10-PCS; principal; 2021-02-15 09:30)
PROC: 4A023N7 Measurement of Cardiac Sampling and Pressure, Left Heart, Percutaneous Approach (ICD-10-PCS; 2021-02-15 09:30)
DX: I25.110 Atherosclerotic heart disease of native coronary artery with unstable angina pectoris (principal); I11.0 Hypertensive heart disease with heart failure; I50.9 Heart failure, unspecified; J44.9 Chronic obstructive pulmonary disease, unspecified; F32.9 Major depressive disorder, single episode, unspecified; Z86.73 Personal history of transient ischemic attack (TIA), and cerebral infarction without residual deficits